=== PATIENT | male | born 1935 | race Caucasian/White ===

== ENCOUNTER 2016-07-15 15:01 | Inpatient (IN) | payer MEDICARE ==
[~2016-07-15] VITALS: Ht 190.5 cm; Wt 96.2 kg
[~2016-07-15 15:01] MED LIST: ALBU0.63 NEB; BENZ100C2 PO; ERGO500012 PO; FLUT1DIS5 IH; OXYC5TAB PO; PRED-220 PO; PRED20TA PO; SULF1TAB3 PO; TIOT18CA IH
[2016-07-15 16:31] LABS: BASO # 0.1 x10^3/uL (0.0-0.2); BASO % 1 % (0-3); EOS % 1 % (0-3); HEMATOCRIT 46.3 % (39.0-53.0); HEMOGLOBIN 14.7 g/dL (13.0-17.5); LYMPH # 0.9 x10^3/uL (1.0-4.8); LYMPH % 6 % (24-48); MEAN CORPUSCULAR HEMOGLOBIN 29 pg (25-35); MEAN CORPUSCULAR HGB CONC 32 g/dL (31-37); MEAN CORPUSCULAR VOLUME 92 fL (79-100); MONO % 6 % (0-9); NEUT % 86 % (31-73); PLATELET COUNT 193 x10^3/uL (140-400); RED BLOOD COUNT 5.01 x10^6/uL (4.30-5.70); RED CELL DISTRIBUTION WIDTH 14.4 % (11.5-14.5); WHITE BLOOD COUNT 14.4 x10^3/uL (4.0-11.0)
--- NOTE | 2016-07-15 16:38 | EKG ---
[facility] [address] [place] [address] Test Date: 2016-07-15 Test Time: 16:28:06 Pat Name: ASHVIN RAGLAND Department: Patient ID: [id number] Room: Gender: Water Attendant: [facility] ER : 1935 Requested By: SHINE RATLIFF Order Number: [id number] Reading MD: Rhonda Zaragoza Measurements Intervals [place] Rate: 109 P: 28 AK: 180 QRS: 49 QRSD: 86 T: 43 QT: 294 QTc: 397 Interpretive Statements SINUS TACHYCARDIA OTHERWISAE NORMAL ECG RI6.01 Compared to ECG 06/25/2016 18:29:49 No significant changes Electronically Signed On 07-17-2016 0:23:43 PAYMENT ANALYST by Rhonda Zaragoza
[2016-07-15] MEDS ORDERED: IV NORMAL SALINE 1000ML BAG 1,000 ML IV ONE (16:45)
[2016-07-15 16:48] LABS: CALCIUM 9.1 mg/dL (8.5-10.1); CREATININE 1.2 mg/dL (0.7-1.3); GFR 58.3; POTASSIUM 4.1 mmol/L (3.5-5.1)
[2016-07-15 16:51] LABS: ALBUMIN 3.2 g/dL (3.4-5.0); ALBUMIN/GLOBULIN RATIO 0.9 (1.0-1.7); TOTAL BILIRUBIN 1.6 mg/dL (0.2-1.0); TOTAL PROTEIN 6.9 g/dL (6.4-8.2)
[2016-07-15] MEDS ORDERED: VANCOMYCIN 2 GM in IV NORMAL SALINE 500ML BAG 500 ML IV ONE (17:00)
[2016-07-15] MEDS ORDERED: ONDANSETRON PF 4 MG/2 ML VIAL. IV PRN (17:00)
--- NOTE | 2016-07-15 17:00 | PHYS DOC ---
Past Medical History Past Medical History: Asthma, Cancer, COPD, Other Additional Past Medical Histor: COLON CA Past Surgical History: Knee Replacement, Tonsillectomy, Other Additional Past Surgical Histo: CA COLON SURGERY, BILATERAL EYE OPERATION Alcohol Use: None Drug Use: None Adult General Chief Complaint Chief Complaint: GI PROBLEM HPI HPI 81-year-old male who presents with diarrhea for the last several days and persistent cough and shortness of breath with repeated bouts of pneumonia throughout the last month. Per daughter at bedside the patient has had at least 3 episodes of pneumonia in the last 30 days that has been refractory to antibiotic therapy. The daughter was also concerned that he may be having some blood in his stool area patient does not take any blood thinners. Patient does state he is still having significant shortness of breath with cough but with no chest pain. He denies any fever or chills. Review of Systems Review of Systems Constitutional: Denies fever or chills [] Eyes: Denies change in visual acuity, redness, or eye pain [] HENT: Denies nasal congestion or sore throat [] Respiratory: Has cough, has shortness of breath [] Cardiovascular: No additional information not addressed in HPI [] GI: Denies abdominal pain, nausea, vomiting, bloody stools or diarrhea [] : Denies dysuria or hematuria [] Musculoskeletal: Denies back pain or joint pain [] Integument: Denies rash or skin lesions [] Neurologic: Denies headache, focal weakness or sensory changes [] Endocrine: Denies polyuria or polydipsia [] Current Medications Current Medications Allergies Allergies Allergies Coded Allergies Type Severity Reaction Last Updated Verified acyclovir Allergy Intermediate RASH 04/25/16 Yes amoxicillin Allergy Intermediate RASH 04/24/16 Yes celecoxib Allergy Intermediate RASH 04/25/16 Yes clavulanic acid Allergy Intermediate RASH 04/24/16 Yes clindamycin Allergy Intermediate RASH 04/25/16 Yes doxycycline Allergy Intermediate 04/25/16 Yes Physical Exam Physical Exam Constitutional: Well developed, well nourished, no acute distress, non-toxic appearance. [] HENT: Normocephalic, atraumatic, bilateral external ears normal, oropharynx moist, no oral exudates, nose normal. [] Eyes: PERRLA, EOMI, conjunctiva normal, no discharge. [] Neck: Normal range of motion, no tenderness, supple, no stridor. [] Cardiovascular:Heart rate regular rhythm, no murmur [] Lungs & Thorax: Bilateral breath sounds clear to auscultation [] Abdomen: Bowel sounds normal, soft, no tenderness, no masses, no pulsatile masses. [] Skin: Warm, dry, no erythema, no rash. [] Back: No tenderness, no CVA tenderness. [] Extremities: No tenderness, no cyanosis, no clubbing, ROM intact, no edema. [] Neurologic: Alert and oriented X 3, normal motor function, normal sensory function, no focal deficits noted. [] Psychologic: Affect normal, judgement normal, mood normal. [] Current Patient Data Vital Signs Vital Signs Date Time Temp Pulse Resp B/P Pulse Ox O2 Delivery O2 Flow Rate FiO2 07/15/16 16:07 98.6 108 32 137/86 96 Nasal Cannula 2 98.6 Lab Values Laboratory Tests Test 07/15/16 16:12 White Blood Count 14.4x10^3/uL (4.0-11.0) H Red Blood Count 5.01x10^6/uL (4.30-5.70) Hemoglobin 14.7g/dL (13.0-17.5) Hematocrit 46.3% (39.0-53.0) Mean Corpuscular Volume 92fL (79-100) Mean Corpuscular Hemoglobin 29pg (25-35) Mean Corpuscular Hemoglobin Concent 32g/dL (31-37) Red Cell Distribution Width 14.4% (11.5-14.5) Platelet Count 193x10^3/uL (140-400) Neutrophils (%) (Auto) 86% (31-73) H Lymphocytes (%) (Auto) 6% (24-48) L Monocytes (%) (Auto) 6% (0-9) Eosinophils (%) (Auto) 1% (0-3) Basophils (%) (Auto) 1% (0-3) Neutrophils # (Auto) 12.3x10^3uL (1.8-7.7) H Lymphocytes # (Auto) 0.9x10^3/uL (1.0-4.8) L Monocytes # (Auto) 0.9x10^3/uL (0.0-1.1) Eosinophils # (Auto) 0.1x10^3/uL (0.0-0.7) Basophils # (Auto) 0.1x10^3/uL (0.0-0.2) Sodium Level 143mmol/L (136-145) Potassium Level 4.1mmol/L (3.5-5.1) Chloride Level 104mmol/L (98-107) Carbon Dioxide Level 33mmol/L (21-32) H Anion Gap 6 (6-14) Blood Urea Nitrogen 20mg/dL (8-26) Creatinine 1.2mg/dL (0.7-1.3) Estimated GFR (Cockcroft-Gault) 58.3 BUN/Creatinine Ratio 17 (6-20) Glucose Level 152mg/dL (70-99) H Lactic Acid Level 2.8mmol/L (0.4-2.0) H Calcium Level 9.1mg/dL (8.5-10.1) Total Bilirubin 1.6mg/dL (0.2-1.0) H Aspartate Amino Transferase (AST) 16U/L (15-37) Alanine Aminotransferase (ALT) 31U/L (16-63) Alkaline Phosphatase 180U/L (46-116) H Troponin I Quantitative < 0.017ng/mL (0.000-0.055) Total Protein 6.9g/dL (6.4-8.2) Albumin 3.2g/dL (3.4-5.0) L Albumin/Globulin Ratio 0.9 (1.0-1.7) L Lipase 344U/L (73-393) Laboratory Tests 07/15/16 16:12 Laboratory Tests 07/15/16 16:12 EKG EKG EKG as interpreted by wa shows sinus tachycardia with a rate of 109 bpm. There are no acute ST findings. Radiology/Procedures Radiology/Procedures Portable one view of the chest as interpreted by wa shows a left lower lobe infiltrate. Course & Med Decision Making Course & Med Decision Making Pertinent Labs and Imaging studies reviewed. (See chart for details) This 81-year-old male be admitted to the hospital for continued hospital- acquired pneumonia. He does have an elevated white count of 14.1 no other acute laboratory abnormalities are seen. Portable one view of the chest continues to demonstrate left lower lobe infiltrate. Blood cultures and lactate were obtained. Lactate was mildly elevated. In the backs were administered in the case is discussed with the hospitalist, Dr. Nicole, who agreed to admit the patient with infectious disease and pulmonology consultation. Duonebs were also administered and the patient felt improved upon admission. Dragon Disclaimer Dragon Disclaimer This electronic medical record was generated, in whole or in part, using a voice recognition dictation system. Departure Departure Impression: Primary Impression: Hospital-acquired pneumonia Additional Impression: Diarrhea Disposition: 09 ADMITTED INPATIENT Admitting Physician: Panchito Nicole Condition: STABLE Referrals: ELVIN PACE Jr, MD (PCP) Problem Qualifiers SHINE RATLIFF DO Jul 15, 2016 17:00
[2016-07-15] MEDS: IPRATRPIUM/ALBUTEROL 0.5/2.5MG 3 ML NEBU. NEB SCH ×2 (17:16→20:46)
[2016-07-15 17:21] LABS: NEG OBC FOB NEG; POS OBC FOB POS
[2016-07-15 17:34] LABS: CALCIUM 9.1 mg/dL (8.5-10.1); CREATININE 1.2 mg/dL (0.7-1.3); GFR 58.3; POTASSIUM 4.1 mmol/L (3.5-5.1)
[2016-07-15] MEDS: VANCOMYCIN PER PHARMACY MC PRN (18:00)
[2016-07-15 18:15] VITALS: BP 141/68
[2016-07-15 19:00] VITALS: BP 120/57
[2016-07-15] MEDS: IV NORMAL SALINE 1000ML BAG 1,000 ML IV SCH (19:37)
--- NOTE | 2016-07-15 19:40 | HP ---
ADMIT DATE: 07/15/2016 CHIEF COMPLAINT: Shortness of breath. HISTORY OF PRESENT ILLNESS: The patient is a pleasant middle-aged male who presents with shortness breath. He has been treated for pneumonia in the past. He has a persistent left lower lobe infiltrate. I have discussed the case with the ER physician. We are going to admit the patient and treat him and consult pulmonary medicine. PAST MEDICAL HISTORY: Including previous pneumonia, asthma, COPD, colon cancer, hip replacement, knee replacement, colon surgery, eye operations. ALLERGIES: Acyclovir, amoxicillin, Celebrex, clavulanic acid, clindamycin and doxycycline. FAMILY HISTORY: Coronary artery disease. SOCIAL HISTORY: Does not drink, smoke or take drugs. MEDICATIONS: Reviewed, please refer to the MRAD. REVIEW OF SYSTEMS: GENERAL: No history of weight change, weakness or fevers. SKIN: No bruising, hair changes or rashes. EYES: No blurred, double or loss of vision. NOSE AND THROAT: No history of nosebleeds, hoarseness or sore throat. HEART: No history of palpitations, chest pain or shortness of breath on exertion. LUNGS: Complains of shortness of breath. GASTROINTESTINAL: Complains of some intermittent bloody diarrhea. GENITOURINARY: No history of frequency, urgency, hesitancy or nocturia. NEUROLOGIC: Denies history of numbness, tingling, tremor or weakness. PSYCHIATRIC: No history of panic, anxiety or depression. ENDOCRINE: No history of heat or cold intolerance, polyuria or polydipsia. EXTREMITIES: Denies muscle weakness, joint pain, pain on walking or stiffness. PHYSICAL EXAMINATION: VITAL SIGNS: Temperature afebrile, pulse 67, respirations 18, blood pressure 142/97. GENERAL: He is alert. HEART: Normal S1, S2. LUNGS: Clear to auscultation, but diminished on the left. ABDOMEN: Soft, positive bowel sounds. EXTREMITIES: Trace edema. SKIN: No rashes. PSYCHIATRIC: Stable. VASCULAR: Good capillary refill. ENDOCRINE: No thyromegaly. LYMPHATICS: No cervical nodes. HEMATOPOIETIC: No bruising. LABORATORY DATA: White count 14, hemoglobin 14, platelets 193. Electrolytes: Sodium 143, potassium 4.1, chloride 104, bicarbonate 33. BUN 20, creatinine is 1.2, glucose 152. Troponin is 0. ASSESSMENT AND PLAN: Recurrent and persistent pneumonia. The patient has been admitted. We will consult Pulmonary Medicine, consult Infectious Disease. DuoNeb, oxygen, IV antibiotics, home meds, PT/OT, frequent labs. DAVIS RIOJAS DO DR: DULCE/edi JOB#: [id number] / [id number]
[2016-07-15] MEDS: ACETAMINOPHEN 325 MG TABLET. PO PRN (22:53)
[2016-07-15 23:00] VITALS: BP 105/63
[2016-07-16 03:00] VITALS: BP 103/55
[2016-07-16 04:14] LABS: BASO # 0.1 x10^3/uL (0.0-0.2); BASO % 1 % (0-3); EOS % 1 % (0-3); HEMATOCRIT 34.9 % (39.0-53.0); HEMOGLOBIN 11.2 g/dL (13.0-17.5); LYMPH # 0.8 x10^3/uL (1.0-4.8); LYMPH % 8 % (24-48); MEAN CORPUSCULAR HEMOGLOBIN 30 pg (25-35); MEAN CORPUSCULAR HGB CONC 32 g/dL (31-37); MEAN CORPUSCULAR VOLUME 92 fL (79-100); MONO % 8 % (0-9); NEUT % 81 % (31-73); PLATELET COUNT 144 x10^3/uL (140-400); RED CELL DISTRIBUTION WIDTH 14.3 % (11.5-14.5); WHITE BLOOD COUNT 9.5 x10^3/uL (4.0-11.0)
[2016-07-16 04:30] LABS: CALCIUM 8.1 mg/dL (8.5-10.1); CREATININE 1.1 mg/dL (0.7-1.3); GFR 64.4; POTASSIUM 3.9 mmol/L (3.5-5.1)
[2016-07-16] MEDS: IV NORMAL SALINE 1000ML BAG 1,000 ML IV SCH ×2 (06:11→18:15)
[2016-07-16] MEDS: VANCOMYCIN 1.25 GM in IV NORMAL SALINE 250ML 250 ML IV SCH ×2 (06:11→20:21)
[2016-07-16] MEDS: IPRATRPIUM/ALBUTEROL 0.5/2.5MG 3 ML NEBU. NEB SCH ×4 (07:21→20:06)
[2016-07-16 07:40] VITALS: BP 117/62
[2016-07-16] MEDS: ACETAMINOPHEN 325 MG TABLET. PO PRN (08:08)
--- NOTE | 2016-07-16 08:39 | RAD ---
Indication GI bleeding. Protocol study. A single view of the chest was obtained and is compared to an examination 06/30/2016. Chronic background changes of emphysema and/or fibrosis are noted. The heart and pulmonary vessels are similar. Relative to the previous exam there is slight volume loss in the left lower lobe. This may reflect atelectasis. Pneumonia is not entirely excluded. The right lung appears clear. IMPRESSION: There are chronic background changes. New mild volume loss at the left lung base compatible with atelectasis or pneumonia
--- NOTE | 2016-07-16 08:42 | PDOC ---
PULMONARY PROGRESS NOTES Vitals Vital Signs Date Time Temp Pulse Resp B/P Pulse Ox O2 Delivery O2 Flow Rate FiO2 07/16/16 07:57 Nasal Cannula 2.0 07/16/16 07:40 98.3 94 19 117/62 99 98.3 General: Alert, No acute distress Lungs: Wheezing Cardiovascular: S1, S2 Abdomen: Soft, Non-tender Extremities: No Edema Labs Laboratory Tests Test 07/15/16 16:12 07/15/16 16:55 07/15/16 17:10 07/16/16 04:00 White Blood Count 14.4x10^3/uL (4.0-11.0) 9.5x10^3/uL (4.0-11.0) Red Blood Count 5.01x10^6/uL (4.30-5.70) 3.80x10^6/uL (4.30-5.70) Hemoglobin 14.7g/dL (13.0-17.5) 11.2g/dL (13.0-17.5) Hematocrit 46.3% (39.0-53.0) 34.9% (39.0-53.0) Mean Corpuscular Volume 92fL (79-100) 92fL (79-100) Mean Corpuscular Hemoglobin 29pg (25-35) 30pg (25-35) Mean Corpuscular Hemoglobin Concent 32g/dL (31-37) 32g/dL (31-37) Red Cell Distribution Width 14.4% (11.5-14.5) 14.3% (11.5-14.5) Platelet Count 193x10^3/uL (140-400) 144x10^3/uL (140-400) Neutrophils (%) (Auto) 86% (31-73) 81% (31-73) Lymphocytes (%) (Auto) 6% (24-48) 8% (24-48) Monocytes (%) (Auto) 6% (0-9) 8% (0-9) Eosinophils (%) (Auto) 1% (0-3) 1% (0-3) Basophils (%) (Auto) 1% (0-3) 1% (0-3) Neutrophils # (Auto) 12.3x10^3uL (1.8-7.7) 7.7x10^3uL (1.8-7.7) Lymphocytes # (Auto) 0.9x10^3/uL (1.0-4.8) 0.8x10^3/uL (1.0-4.8) Monocytes # (Auto) 0.9x10^3/uL (0.0-1.1) 0.8x10^3/uL (0.0-1.1) Eosinophils # (Auto) 0.1x10^3/uL (0.0-0.7) 0.1x10^3/uL (0.0-0.7) Basophils # (Auto) 0.1x10^3/uL (0.0-0.2) 0.1x10^3/uL (0.0-0.2) Sodium Level 143mmol/L (136-145) 145mmol/L (136-145) 144mmol/L (136-145) Potassium Level 4.1mmol/L (3.5-5.1) 4.1mmol/L (3.5-5.1) 3.9mmol/L (3.5-5.1) Chloride Level 104mmol/L (98-107) 104mmol/L (98-107) 109mmol/L (98-107) Carbon Dioxide Level 33mmol/L (21-32) 33mmol/L (21-32) 30mmol/L (21-32) Anion Gap 6 (6-14) 8 (6-14) 5 (6-14) Blood Urea Nitrogen 20mg/dL (8-26) 20mg/dL (8-26) 18mg/dL (8-26) Creatinine 1.2mg/dL (0.7-1.3) 1.2mg/dL (0.7-1.3) 1.1mg/dL (0.7-1.3) Estimated GFR (Cockcroft-Gault) 58.3 58.3 64.4 BUN/Creatinine Ratio 17 (6-20) Glucose Level 152mg/dL (70-99) 114mg/dL (70-99) 110mg/dL (70-99) Lactic Acid Level 2.8mmol/L (0.4-2.0) 1.0mmol/L (0.4-2.0) Calcium Level 9.1mg/dL (8.5-10.1) 9.1mg/dL (8.5-10.1) 8.1mg/dL (8.5-10.1) Total Bilirubin 1.6mg/dL (0.2-1.0) Aspartate Amino Transf (AST/SGOT) 16U/L (15-37) Alanine Aminotransferase (ALT/SGPT) 31U/L (16-63) Alkaline Phosphatase 180U/L (46-116) Troponin I Quantitative < 0.017ng/mL (0.000-0.055) Total Protein 6.9g/dL (6.4-8.2) Albumin 3.2g/dL (3.4-5.0) Albumin/Globulin Ratio 0.9 (1.0-1.7) Lipase 344U/L (73-393) Stool Occult Blood Positive (NEG) Test 07/16/16 07:45 Glucose (Fingerstick) 103mg/dL (70-99) Laboratory Tests Test 07/15/16 16:12 07/15/16 16:55 07/15/16 17:10 07/16/16 04:00 White Blood Count 14.4x10^3/uL (4.0-11.0) 9.5x10^3/uL (4.0-11.0) Red Blood Count 5.01x10^6/uL (4.30-5.70) 3.80x10^6/uL (4.30-5.70) Hemoglobin 14.7g/dL (13.0-17.5) 11.2g/dL (13.0-17.5) Hematocrit 46.3% (39.0-53.0) 34.9% (39.0-53.0) Mean Corpuscular Volume 92fL (79-100) 92fL (79-100) Mean Corpuscular Hemoglobin 29pg (25-35) 30pg (25-35) Mean Corpuscular Hemoglobin Concent 32g/dL (31-37) 32g/dL (31-37) Red Cell Distribution Width 14.4% (11.5-14.5) 14.3% (11.5-14.5) Platelet Count 193x10^3/uL (140-400) 144x10^3/uL (140-400) Neutrophils (%) (Auto) 86% (31-73) 81% (31-73) Lymphocytes (%) (Auto) 6% (24-48) 8% (24-48) Monocytes (%) (Auto) 6% (0-9) 8% (0-9) Eosinophils (%) (Auto) 1% (0-3) 1% (0-3) Basophils (%) (Auto) 1% (0-3) 1% (0-3) Neutrophils # (Auto) 12.3x10^3uL (1.8-7.7) 7.7x10^3uL (1.8-7.7) Lymphocytes # (Auto) 0.9x10^3/uL (1.0-4.8) 0.8x10^3/uL (1.0-4.8) Monocytes # (Auto) 0.9x10^3/uL (0.0-1.1) 0.8x10^3/uL (0.0-1.1) Eosinophils # (Auto) 0.1x10^3/uL (0.0-0.7) 0.1x10^3/uL (0.0-0.7) Basophils # (Auto) 0.1x10^3/uL (0.0-0.2) 0.1x10^3/uL (0.0-0.2) Sodium Level 143mmol/L (136-145) 145mmol/L (136-145) 144mmol/L (136-145) Potassium Level 4.1mmol/L (3.5-5.1) 4.1mmol/L (3.5-5.1) 3.9mmol/L (3.5-5.1) Chloride Level 104mmol/L (98-107) 104mmol/L (98-107) 109mmol/L (98-107) Carbon Dioxide Level 33mmol/L (21-32) 33mmol/L (21-32) 30mmol/L (21-32) Anion Gap 6 (6-14) 8 (6-14) 5 (6-14) Blood Urea Nitrogen 20mg/dL (8-26) 20mg/dL (8-26) 18mg/dL (8-26) Creatinine 1.2mg/dL (0.7-1.3) 1.2mg/dL (0.7-1.3) 1.1mg/dL (0.7-1.3) Estimated GFR (Cockcroft-Gault) 58.3 58.3 64.4 BUN/Creatinine Ratio 17 (6-20) Glucose Level 152mg/dL (70-99) 114mg/dL (70-99) 110mg/dL (70-99) Lactic Acid Level 2.8mmol/L (0.4-2.0) 1.0mmol/L (0.4-2.0) Calcium Level 9.1mg/dL (8.5-10.1) 9.1mg/dL (8.5-10.1) 8.1mg/dL (8.5-10.1) Total Bilirubin 1.6mg/dL (0.2-1.0) Aspartate Amino Transf (AST/SGOT) 16U/L (15-37) Alanine Aminotransferase (ALT/SGPT) 31U/L (16-63) Alkaline Phosphatase 180U/L (46-116) Troponin I Quantitative < 0.017ng/mL (0.000-0.055) Total Protein 6.9g/dL (6.4-8.2) Albumin 3.2g/dL (3.4-5.0) Albumin/Globulin Ratio 0.9 (1.0-1.7) Lipase 344U/L (73-393) Stool Occult Blood Positive (NEG) Test 07/16/16 07:45 Glucose (Fingerstick) 103mg/dL (70-99) Medications Active Scripts Medications Dose Route/Sig Days Date Category Vitamin D2 (Ergocalciferol (Vitamin D2)) 50,000 Unit Capsule 50,000 Unit PO WEEKLY 06/18/16 Rx Albuterol Sulfate Neb Soln (Albuterol Sulfate) 0.63 Mg/3 Ml Vial.neb 1 Vial NEB PRN QID PRN 06/10/16 Reported Advair 500-50 Diskus (Fluticasone/Salmeterol) 1 Each Disk.w.dev 1 Inh IH PRN PRN 06/10/16 Reported Impression . FULL NOTE DICTATED AGREE WITH CURRENT RX THANKS MAUREEN LINDER MD Jul 16, 2016 08:42
--- NOTE | 2016-07-16 10:21 | PDOC ---
Infectious Disease Note ROS ROS GEN: Denies fevers, chills, sweats HEENT: Denies blurred vision, sore throat CV: Denies chest pain RESP: Denies shortness of air, cough GI: Denies n/v/d NEURO: Denies confusion, dizziness MSK: Denies weakness, joint pain/swelling Vital Sign Vital Signs Vital Signs Date Time Temp Pulse Resp B/P Pulse Ox O2 Delivery O2 Flow Rate FiO2 07/16/16 07:57 Nasal Cannula 2.0 07/16/16 07:40 98.3 94 19 117/62 99 98.3 Physical Exam PHYSICAL EXAM GENERAL: NAD, Alert HEENT: PERRL, OC/OP NECK: Supple, no JVD, no LN LUNGS: Clear HEART: S1S2, no gallop, no murmur ABD: Soft, NT, no organomegaly, no rebound EXT: No edema, no cyanosis MENDER HAND: Alert, oriented x 3, no focal neurologic deficit SKIN: No rash IV: ok Labs Lab Laboratory Tests Test 07/15/16 16:12 07/15/16 16:55 07/15/16 17:10 07/16/16 04:00 White Blood Count 14.4x10^3/uL (4.0-11.0) 9.5x10^3/uL (4.0-11.0) Red Blood Count 5.01x10^6/uL (4.30-5.70) 3.80x10^6/uL (4.30-5.70) Hemoglobin 14.7g/dL (13.0-17.5) 11.2g/dL (13.0-17.5) Hematocrit 46.3% (39.0-53.0) 34.9% (39.0-53.0) Mean Corpuscular Volume 92fL (79-100) 92fL (79-100) Mean Corpuscular Hemoglobin 29pg (25-35) 30pg (25-35) Mean Corpuscular Hemoglobin Concent 32g/dL (31-37) 32g/dL (31-37) Red Cell Distribution Width 14.4% (11.5-14.5) 14.3% (11.5-14.5) Platelet Count 193x10^3/uL (140-400) 144x10^3/uL (140-400) Neutrophils (%) (Auto) 86% (31-73) 81% (31-73) Lymphocytes (%) (Auto) 6% (24-48) 8% (24-48) Monocytes (%) (Auto) 6% (0-9) 8% (0-9) Eosinophils (%) (Auto) 1% (0-3) 1% (0-3) Basophils (%) (Auto) 1% (0-3) 1% (0-3) Neutrophils # (Auto) 12.3x10^3uL (1.8-7.7) 7.7x10^3uL (1.8-7.7) Lymphocytes # (Auto) 0.9x10^3/uL (1.0-4.8) 0.8x10^3/uL (1.0-4.8) Monocytes # (Auto) 0.9x10^3/uL (0.0-1.1) 0.8x10^3/uL (0.0-1.1) Eosinophils # (Auto) 0.1x10^3/uL (0.0-0.7) 0.1x10^3/uL (0.0-0.7) Basophils # (Auto) 0.1x10^3/uL (0.0-0.2) 0.1x10^3/uL (0.0-0.2) Sodium Level 143mmol/L (136-145) 145mmol/L (136-145) 144mmol/L (136-145) Potassium Level 4.1mmol/L (3.5-5.1) 4.1mmol/L (3.5-5.1) 3.9mmol/L (3.5-5.1) Chloride Level 104mmol/L (98-107) 104mmol/L (98-107) 109mmol/L (98-107) Carbon Dioxide Level 33mmol/L (21-32) 33mmol/L (21-32) 30mmol/L (21-32) Anion Gap 6 (6-14) 8 (6-14) 5 (6-14) Blood Urea Nitrogen 20mg/dL (8-26) 20mg/dL (8-26) 18mg/dL (8-26) Creatinine 1.2mg/dL (0.7-1.3) 1.2mg/dL (0.7-1.3) 1.1mg/dL (0.7-1.3) Estimated GFR (Cockcroft-Gault) 58.3 58.3 64.4 BUN/Creatinine Ratio 17 (6-20) Glucose Level 152mg/dL (70-99) 114mg/dL (70-99) 110mg/dL (70-99) Lactic Acid Level 2.8mmol/L (0.4-2.0) 1.0mmol/L (0.4-2.0) Calcium Level 9.1mg/dL (8.5-10.1) 9.1mg/dL (8.5-10.1) 8.1mg/dL (8.5-10.1) Total Bilirubin 1.6mg/dL (0.2-1.0) Aspartate Amino Transf (AST/SGOT) 16U/L (15-37) Alanine Aminotransferase (ALT/SGPT) 31U/L (16-63) Alkaline Phosphatase 180U/L (46-116) Troponin I Quantitative < 0.017ng/mL (0.000-0.055) Total Protein 6.9g/dL (6.4-8.2) Albumin 3.2g/dL (3.4-5.0) Albumin/Globulin Ratio 0.9 (1.0-1.7) Lipase 344U/L (73-393) Stool Occult Blood Positive (NEG) Test 07/16/16 07:45 Glucose (Fingerstick) 103mg/dL (70-99) Objective Assessment Leukocytosis HCAP Loose stools ABx allergies H/o stenotrophomonas Foot wound Plan Plan of Care Contact isolation Stool for c-diff Cont Vanc Add Bactrim/Aztreonam/doxy Po Vanc F/u labs and cults # [id number] VENKATA PARKS MD Jul 16, 2016 10:21
[2016-07-16] MEDS ORDERED: NON FORMULARY ITEM (Fluticasone/Salmeterol (Advair 500-50 Diskus) 1 INH) IH PRN (10:30)
[2016-07-16] MEDS ORDERED: NON FORMULARY ITEM (Albuterol Sulfate (Albuterol Sulfate Neb Soln) 1 VIAL) NEB PRN (10:30)
[2016-07-16] MEDS ORDERED: ONDANSETRON PF 4 MG/2 ML VIAL. IV PRN (10:30)
[2016-07-16] MEDS ORDERED: ALBUTEROL SULFATE 2.5 MG/3 ML NEBU. NEB PRN (10:45)
[2016-07-16 11:22] VITALS: BP 107/64
[2016-07-16] MEDS: VANCOMYCIN 125 MG/2.5 ML ORAL SOLUTION. PO SCH ×4 (11:31→20:21)
[2016-07-16] MEDS: SMZ/TMP 800/160MG TABLET. PO SCH ×3 (11:31→20:21)
[2016-07-16] MEDS: AZITHROMYCIN 250 MG TABLET PO SCH (11:32)
[2016-07-16] MEDS: BUDESONIDE 0.5 MG/2 ML NEBU NEB SCH ×2 (11:51→20:13)
[2016-07-16] MEDS: AZTREONAM 1 GM in IV NORMAL SALINE 50ML 50 ML IV SCH ×2 (12:45→18:15)
[2016-07-16] MEDS: LACTOBACILLUS ACIDOPH & BULGAR 1 TABLET. PO SCH ×2 (12:45→18:15)
--- NOTE | 2016-07-16 12:49 | PDOC ---
PROGRESS NOTES Chief Complaint Chief Complaint COUGH sepsis with HCAP HCAP Loose stools ABx allergies H/o stenotrophomonas PNA in the past month Foot wound COPD stable diastolic CHF plan: 1. FU WITH ID, PUlm 2. on multipl abx , bactrium, doxy, po vanco, rachael, IV vanco, iv azactam 3. check cdiff, sputum cx 4. duoneb dvt ppx PTOT History of Present Illness History of Present Illness still cough, yellow sputum diarrhea 1 week, watery Vitals Vitals Vital Signs Date Time Temp Pulse Resp B/P Pulse Ox O2 Delivery O2 Flow Rate FiO2 07/16/16 11:53 Nasal Cannula 2.0 07/16/16 11:22 98.1 90 19 107/64 99 98.1 Physical Exam General: Alert, Oriented X3, Cooperative Heart: Regular rate Lungs: Crackles (left basilar crakles., rhonchis) Extremities: No clubbing, No cyanosis Labs LABS Laboratory Tests Test 07/15/16 16:12 07/15/16 16:55 07/15/16 17:10 07/16/16 04:00 White Blood Count 14.4x10^3/uL (4.0-11.0) 9.5x10^3/uL (4.0-11.0) Red Blood Count 5.01x10^6/uL (4.30-5.70) 3.80x10^6/uL (4.30-5.70) Hemoglobin 14.7g/dL (13.0-17.5) 11.2g/dL (13.0-17.5) Hematocrit 46.3% (39.0-53.0) 34.9% (39.0-53.0) Mean Corpuscular Volume 92fL (79-100) 92fL (79-100) Mean Corpuscular Hemoglobin 29pg (25-35) 30pg (25-35) Mean Corpuscular Hemoglobin Concent 32g/dL (31-37) 32g/dL (31-37) Red Cell Distribution Width 14.4% (11.5-14.5) 14.3% (11.5-14.5) Platelet Count 193x10^3/uL (140-400) 144x10^3/uL (140-400) Neutrophils (%) (Auto) 86% (31-73) 81% (31-73) Lymphocytes (%) (Auto) 6% (24-48) 8% (24-48) Monocytes (%) (Auto) 6% (0-9) 8% (0-9) Eosinophils (%) (Auto) 1% (0-3) 1% (0-3) Basophils (%) (Auto) 1% (0-3) 1% (0-3) Neutrophils # (Auto) 12.3x10^3uL (1.8-7.7) 7.7x10^3uL (1.8-7.7) Lymphocytes # (Auto) 0.9x10^3/uL (1.0-4.8) 0.8x10^3/uL (1.0-4.8) Monocytes # (Auto) 0.9x10^3/uL (0.0-1.1) 0.8x10^3/uL (0.0-1.1) Eosinophils # (Auto) 0.1x10^3/uL (0.0-0.7) 0.1x10^3/uL (0.0-0.7) Basophils # (Auto) 0.1x10^3/uL (0.0-0.2) 0.1x10^3/uL (0.0-0.2) Sodium Level 143mmol/L (136-145) 145mmol/L (136-145) 144mmol/L (136-145) Potassium Level 4.1mmol/L (3.5-5.1) 4.1mmol/L (3.5-5.1) 3.9mmol/L (3.5-5.1) Chloride Level 104mmol/L (98-107) 104mmol/L (98-107) 109mmol/L (98-107) Carbon Dioxide Level 33mmol/L (21-32) 33mmol/L (21-32) 30mmol/L (21-32) Anion Gap 6 (6-14) 8 (6-14) 5 (6-14) Blood Urea Nitrogen 20mg/dL (8-26) 20mg/dL (8-26) 18mg/dL (8-26) Creatinine 1.2mg/dL (0.7-1.3) 1.2mg/dL (0.7-1.3) 1.1mg/dL (0.7-1.3) Estimated GFR (Cockcroft-Gault) 58.3 58.3 64.4 BUN/Creatinine Ratio 17 (6-20) Glucose Level 152mg/dL (70-99) 114mg/dL (70-99) 110mg/dL (70-99) Lactic Acid Level 2.8mmol/L (0.4-2.0) 1.0mmol/L (0.4-2.0) Calcium Level 9.1mg/dL (8.5-10.1) 9.1mg/dL (8.5-10.1) 8.1mg/dL (8.5-10.1) Total Bilirubin 1.6mg/dL (0.2-1.0) Aspartate Amino Transf (AST/SGOT) 16U/L (15-37) Alanine Aminotransferase (ALT/SGPT) 31U/L (16-63) Alkaline Phosphatase 180U/L (46-116) Troponin I Quantitative < 0.017ng/mL (0.000-0.055) Total Protein 6.9g/dL (6.4-8.2) Albumin 3.2g/dL (3.4-5.0) Albumin/Globulin Ratio 0.9 (1.0-1.7) Lipase 344U/L (73-393) Stool Occult Blood Positive (NEG) Test 07/16/16 07:45 Glucose (Fingerstick) 103mg/dL (70-99) Assessment and Plan Assessmemt and Plan Problems Medical Problems: (1) Diarrhea Status: Acute (2) Hospital-acquired pneumonia Status: Acute Problems: Comment Review of Relevant I have reviewed the following items urban (where applicable) has been applied. Labs Laboratory Tests Test 07/15/16 16:12 07/15/16 16:55 07/15/16 17:10 07/16/16 04:00 White Blood Count 14.4x10^3/uL (4.0-11.0) 9.5x10^3/uL (4.0-11.0) Red Blood Count 5.01x10^6/uL (4.30-5.70) 3.80x10^6/uL (4.30-5.70) Hemoglobin 14.7g/dL (13.0-17.5) 11.2g/dL (13.0-17.5) Hematocrit 46.3% (39.0-53.0) 34.9% (39.0-53.0) Mean Corpuscular Volume 92fL (79-100) 92fL (79-100) Mean Corpuscular Hemoglobin 29pg (25-35) 30pg (25-35) Mean Corpuscular Hemoglobin Concent 32g/dL (31-37) 32g/dL (31-37) Red Cell Distribution Width 14.4% (11.5-14.5) 14.3% (11.5-14.5) Platelet Count 193x10^3/uL (140-400) 144x10^3/uL (140-400) Neutrophils (%) (Auto) 86% (31-73) 81% (31-73) Lymphocytes (%) (Auto) 6% (24-48) 8% (24-48) Monocytes (%) (Auto) 6% (0-9) 8% (0-9) Eosinophils (%) (Auto) 1% (0-3) 1% (0-3) Basophils (%) (Auto) 1% (0-3) 1% (0-3) Neutrophils # (Auto) 12.3x10^3uL (1.8-7.7) 7.7x10^3uL (1.8-7.7) Lymphocytes # (Auto) 0.9x10^3/uL (1.0-4.8) 0.8x10^3/uL (1.0-4.8) Monocytes # (Auto) 0.9x10^3/uL (0.0-1.1) 0.8x10^3/uL (0.0-1.1) Eosinophils # (Auto) 0.1x10^3/uL (0.0-0.7) 0.1x10^3/uL (0.0-0.7) Basophils # (Auto) 0.1x10^3/uL (0.0-0.2) 0.1x10^3/uL (0.0-0.2) Sodium Level 143mmol/L (136-145) 145mmol/L (136-145) 144mmol/L (136-145) Potassium Level 4.1mmol/L (3.5-5.1) 4.1mmol/L (3.5-5.1) 3.9mmol/L (3.5-5.1) Chloride Level 104mmol/L (98-107) 104mmol/L (98-107) 109mmol/L (98-107) Carbon Dioxide Level 33mmol/L (21-32) 33mmol/L (21-32) 30mmol/L (21-32) Anion Gap 6 (6-14) 8 (6-14) 5 (6-14) Blood Urea Nitrogen 20mg/dL (8-26) 20mg/dL (8-26) 18mg/dL (8-26) Creatinine 1.2mg/dL (0.7-1.3) 1.2mg/dL (0.7-1.3) 1.1mg/dL (0.7-1.3) Estimated GFR (Cockcroft-Gault) 58.3 58.3 64.4 BUN/Creatinine Ratio 17 (6-20) Glucose Level 152mg/dL (70-99) 114mg/dL (70-99) 110mg/dL (70-99) Lactic Acid Level 2.8mmol/L (0.4-2.0) 1.0mmol/L (0.4-2.0) Calcium Level 9.1mg/dL (8.5-10.1) 9.1mg/dL (8.5-10.1) 8.1mg/dL (8.5-10.1) Total Bilirubin 1.6mg/dL (0.2-1.0) Aspartate Amino Transf (AST/SGOT) 16U/L (15-37) Alanine Aminotransferase (ALT/SGPT) 31U/L (16-63) Alkaline Phosphatase 180U/L (46-116) Troponin I Quantitative < 0.017ng/mL (0.000-0.055) Total Protein 6.9g/dL (6.4-8.2) Albumin 3.2g/dL (3.4-5.0) Albumin/Globulin Ratio 0.9 (1.0-1.7) Lipase 344U/L (73-393) Stool Occult Blood Positive (NEG) Test 07/16/16 07:45 Glucose (Fingerstick) 103mg/dL (70-99) Laboratory Tests Test 07/15/16 16:12 07/15/16 16:55 07/15/16 17:10 07/16/16 04:00 White Blood Count 14.4x10^3/uL (4.0-11.0) 9.5x10^3/uL (4.0-11.0) Red Blood Count 5.01x10^6/uL (4.30-5.70) 3.80x10^6/uL (4.30-5.70) Hemoglobin 14.7g/dL (13.0-17.5) 11.2g/dL (13.0-17.5) Hematocrit 46.3% (39.0-53.0) 34.9% (39.0-53.0) Mean Corpuscular Volume 92fL (79-100) 92fL (79-100) Mean Corpuscular Hemoglobin 29pg (25-35) 30pg (25-35) Mean Corpuscular Hemoglobin Concent 32g/dL (31-37) 32g/dL (31-37) Red Cell Distribution Width 14.4% (11.5-14.5) 14.3% (11.5-14.5) Platelet Count 193x10^3/uL (140-400) 144x10^3/uL (140-400) Neutrophils (%) (Auto) 86% (31-73) 81% (31-73) Lymphocytes (%) (Auto) 6% (24-48) 8% (24-48) Monocytes (%) (Auto) 6% (0-9) 8% (0-9) Eosinophils (%) (Auto) 1% (0-3) 1% (0-3) Basophils (%) (Auto) 1% (0-3) 1% (0-3) Neutrophils # (Auto) 12.3x10^3uL (1.8-7.7) 7.7x10^3uL (1.8-7.7) Lymphocytes # (Auto) 0.9x10^3/uL (1.0-4.8) 0.8x10^3/uL (1.0-4.8) Monocytes # (Auto) 0.9x10^3/uL (0.0-1.1) 0.8x10^3/uL (0.0-1.1) Eosinophils # (Auto) 0.1x10^3/uL (0.0-0.7) 0.1x10^3/uL (0.0-0.7) Basophils # (Auto) 0.1x10^3/uL (0.0-0.2) 0.1x10^3/uL (0.0-0.2) Sodium Level 143mmol/L (136-145) 145mmol/L (136-145) 144mmol/L (136-145) Potassium Level 4.1mmol/L (3.5-5.1) 4.1mmol/L (3.5-5.1) 3.9mmol/L (3.5-5.1) Chloride Level 104mmol/L (98-107) 104mmol/L (98-107) 109mmol/L (98-107) Carbon Dioxide Level 33mmol/L (21-32) 33mmol/L (21-32) 30mmol/L (21-32) Anion Gap 6 (6-14) 8 (6-14) 5 (6-14) Blood Urea Nitrogen 20mg/dL (8-26) 20mg/dL (8-26) 18mg/dL (8-26) Creatinine 1.2mg/dL (0.7-1.3) 1.2mg/dL (0.7-1.3) 1.1mg/dL (0.7-1.3) Estimated GFR (Cockcroft-Gault) 58.3 58.3 64.4 BUN/Creatinine Ratio 17 (6-20) Glucose Level 152mg/dL (70-99) 114mg/dL (70-99) 110mg/dL (70-99) Lactic Acid Level 2.8mmol/L (0.4-2.0) 1.0mmol/L (0.4-2.0) Calcium Level 9.1mg/dL (8.5-10.1) 9.1mg/dL (8.5-10.1) 8.1mg/dL (8.5-10.1) Total Bilirubin 1.6mg/dL (0.2-1.0) Aspartate Amino Transf (AST/SGOT) 16U/L (15-37) Alanine Aminotransferase (ALT/SGPT) 31U/L (16-63) Alkaline Phosphatase 180U/L (46-116) Troponin I Quantitative < 0.017ng/mL (0.000-0.055) Total Protein 6.9g/dL (6.4-8.2) Albumin 3.2g/dL (3.4-5.0) Albumin/Globulin Ratio 0.9 (1.0-1.7) Lipase 344U/L (73-393) Stool Occult Blood Positive (NEG) Test 07/16/16 07:45 Glucose (Fingerstick) 103mg/dL (70-99) Medications Current Medications Levofloxacin/ Dextrose 150 ml @ 100 mls/hr 1X ONCE IV Last administered on 20:17; Start 07/15/16 at 16:45; Stop 07/15/16 at 18:14; Status DC Sodium Chloride (Iv Sodium Chloride 0.9% 1000ml Bag) 1,000 ml @ 1,000 mls/hr 1X ONCE IV Last administered on 07/15/16 16:48; Start 07/15/16 at 16:45; Stop 07/15/16 at 17:44; Status DC Vancomycin HCl 1 each 1 each PRN DAILY PRN MC SEE COMMENTS Last administered on 07/15/16 18:00; Start 07/15/16 at 16:45 Vancomycin HCl/ Sodium Chloride (Iv Sodium Chloride 0.9% 500ml Bag) 500 ml @ 250 mls/hr 1X ONCE IV Last administered on 07/15/16 17:24; Start 07/15/16 at 17 :00; Stop 07/15/16 at 18:59; Status DC Ondansetron HCl 4 mg 4 mg PRN Q8HRS PRN IV NAUSEA/VOMITING; Start 07/15/16 at 17 :00; Stop 07/16/16 at 10:32; Status DC Sodium Chloride (Iv Sodium Chloride 0.9% 1000ml Bag) 1,000 ml @ 100 mls/hr Q10H IV Last administered on 07/16/16 06:11; Start 07/15/16 at 16:54; Stop at 16:53 Acetaminophen (Tylenol) 650 mg PRN Q4HRS PRN PO FEVER Last administered on 08:08; Start 07/15/16 at 17:00; Stop 07/16/16 at 10:32; Status DC Albuterol/ Ipratropium 3 ml 3 ml RTQID NEB Last administered on 07/16/16 07:21 ; Start 07/15/16 at 17:00; Stop 07/16/16 at 10:32; Status DC Vancomycin HCl/ Sodium Chloride (Iv Sodium Chloride 0.9% 250ml) 250 ml @ 167 mls/hr Q12H IV Last administered on 07/16/16 06:11; Start 07/16/16 at 06:00 Vancomycin HCl 1 each 1X ONCE MC ; Start 07/17/16 at 05:30; Stop 07/17/16 at 05: 31 Trimethoprim/ Sulfamethoxazole 1 tab 1 tab TID PO Last administered on 11:31; Start 07/16/16 at 10:30 Aztreonam/Sodium Chloride (Azactam/Iv Sodium Chloride 0.9% 50ml) 50 ml @ 100 mls/hr Q6HRS IV ; Start 07/16/16 at 12:00 Azithromycin (Zithromax) 500 mg DAILY PO Last administered on 07/16/16 11:32; Start 07/16/16 at 10:30 Vancomycin HCl 125 mg [id number] PO Last administered on 07/16/16 11:31; Start 07/16/16 at 10:30 Lactobacillus Acidophilus (Bacid, Majo-Bid) 1 tab TIDWMEALS PO ; Start 07/16/16 at 12:00 Ergocalciferol (Vitamin D2) 50,000 unit WEEKLY PO ; Start 07/22/16 at 09:00 Non-Formulary Medication 1 vial PRN QID PRN NEB SHORTNESS OF BREATH; Start 07/16 at 10:30; Stop 07/16/16 at 10:34; Status DC Non-Formulary Medication 1 inh PRN PRN IH SHORTNESS OF BREATH; Start 07/16/16 at 10:30; Stop 07/16/16 at 10:34; Status DC Albuterol/ Ipratropium (Duoneb) 3 ml RTQID NEB Last administered on 07/16/16 11 :49; Start 07/16/16 at 12:00 Acetaminophen (Tylenol) 650 mg PRN Q6HRS PRN PO MILD PAIN / TEMP; Start at 10:30 Ondansetron HCl (Zofran) 4 mg PRN Q6HRS PRN IV NAUSEA/VOMITING; Start 07/16/16 at 10:30 Budesonide (Pulmicort) 0.5 mg RTBID NEB Last administered on 07/16/16 11:51; Start 07/16/16 at 11:30 Albuterol Sulfate (Ventolin Neb Soln) 2.5 mg PRN QID PRN NEB SHORTNESS OF BREATH; Start 07/16/16 at 10:45 Active Scripts Active Vitamin D2 (Ergocalciferol (Vitamin D2)) 50,000 Unit Capsule 50,000 Unit PO WEEKLY Reported Albuterol Sulfate Neb Soln (Albuterol Sulfate) 0.63 Mg/3 Ml Vial.neb 1 Vial NEB PRN QID PRN Advair 500-50 Diskus (Fluticasone/Salmeterol) 1 Each Disk.w.dev 1 Inh IH PRN PRN Vitals/I & O Vital Sign - Last 24 Hours 07/15/16 07/15/16 07/15/16 07/15/16 16:07 17:17 18:15 19:00 Temp 98.6 98.1 98.7 98.6 98.1 98.7 Pulse 108 107 104 Resp 32 20 21 B/P 137/86 141/68 120/57 Pulse Ox 96 96 96 96 O2 Delivery Nasal Cannula Nasal Cannula Nasal Cannula Nasal Cannula O2 Flow Rate 2 2.0 2.0 2.0 07/15/16 07/15/16 07/15/16 07/16/16 19:43 20:47 23:00 03:00 Temp 98.7 97.6 98.7 97.6 Pulse 109 88 Resp 20 19 B/P 105/63 103/55 Pulse Ox 89 97 97 O2 Delivery Nasal Cannula Nasal Cannula Nasal Cannula Nasal Cannula O2 Flow Rate 2.0 1.0 2.0 2.0 07/16/16 07/16/16 07/16/16 07/16/16 07:22 07:40 07:57 11:22 Temp 98.3 98.1 98.3 98.1 Pulse 94 90 Resp 19 19 B/P 117/62 107/64 Pulse Ox 98 99 99 O2 Delivery Nasal Cannula Nasal Cannula Nasal Cannula Nasal Cannula O2 Flow Rate 2.0 2.0 2.0 2.0 07/16/16 07/16/16 11:50 11:53 O2 Delivery Nasal Cannula Nasal Cannula O2 Flow Rate 2.0 2.0 Intake and Output 07/15/16 07/15/16 07/16/16 15:00 23:00 07:00 Intake Total 900 ml Balance 900 ml LAWRENCE BARR MD Jul 16, 2016 12:49
--- NOTE | 2016-07-16 12:52 | CONS ---
DATE OF CONSULTATION: 07/16/2016 PATIENT'S ROOM: 656. REQUESTING PHYSICIAN: Dr. Nicole. REASON FOR CONSULTATION: Healthcare-associated pneumonia. 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 He had been at home. States he had been doing fairly well; however, began to have increased shortness of air, possibly around Johanna time that has steadily gotten worse. He has become more weak and had sputum production. It has become yellow in color with no hemoptysis or blood tinging. No sinus congestion. No fevers, but subjective sweats. Additionally, he has developed loose stools over the past several weeks up to 4-5 times a day. Denies any gross cramping or bloating, and no excessive odor. Denies any blood with that. Because of his worsening condition, he presented to [facility]. On July 15, he had been afebrile, but white blood cell count was elevated at 14.4. Chest x-ray has some mild infiltrate in left side. He is given a dose of levofloxacin and placed on vancomycin and admitted to the hospital. Currently, he is resting and he is fairly comfortable. 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 PAST SURGICAL HISTORY: Positive for multiple I and Ds of the foot wound. History of previous other lower extremity surgery. He has had a knee replacement, colon surgery, ____ plasty and bilateral eye surgery as well. REVIEW OF SYSTEMS: Otherwise negative except for as mentioned above. He does see Dr. Nguyen routinely to debride callus of his right foot. ALLERGIES: LIST SAYS ACYCLOVIR, AMOXICILLIN WITH AUGMENTIN, CLINDAMYCIN AND DOXYCYCLINE. He states he believes he turns different colors, red or yellow depending on which one he gets. REVIEW OF SYSTEMS: Otherwise, negative. FAMILY HISTORY: Noncontributory. CURRENT MEDICATIONS: He did receive a dose of levofloxacin, also is placed on IV vancomycin. Other meds are available and reviewed in the chart. PHYSICAL EXAMINATION: VITAL SIGNS: He has been afebrile. Most recent temperature 98.3, pulse 84, respirations 19, satting 99% on 2 liters, blood pressure 117/62. CONSTITUTIONAL: He is very pleasant. He is cooperative. He is in no acute distress. He is lying in bed. HEENT: Pupils are status post cataract surgery. Normal conjunctivae. Oral cavity, oropharynx is clear. NECK: Supple, no JVD. LUNGS: Have some mild wheeze bilaterally. HEART: S1 and S2. ABDOMEN: Soft, nontender and nondistended with minimal distention, no guarding or rebound. EXTREMITIES: Without clubbing, cyanosis or gross edema. He has a callused area on the plantar aspect of the mid right forefoot. There is no expressible wound. There are no signs of infection and he has a callused area. SKIN:0 Warm to touch without signs of rash. NEUROLOGIC: He is nonfocal, moves all extremities. PSYCHIATRIC: Affect is appropriate. LABORATORY DATA: White count 14.2 on arrival, currently is 9.5, hemoglobin 11.2, platelets of 144 with 81% neutrophils, glucose 103, creatinine of 1.1. BNP was not checked. Occult positive. Chest x-ray again with some questionable left infiltrate. IMPRESSION: 1. Leukocytosis. 2. Healthcare-associated pneumonia, left side. 3. Loose stools. 4. Antibiotic allergies. 5. History of Stenotrophomonas foot wound that has already infected. RECOMMENDATIONS: He needs contact isolation with his recent history of Stenotrophomonas. We will check stool for C. diff. We will continue vancomycin. We will add Bactrim, aztreonam, doxycycline for atypical coverage, p.o. vancomycin for potential C. diff colitis. Follow up on labs and cultures. Thank you for allowing us to participate in the patient's care. Should you have further questions, please do not hesitate to contact me. VENKATA PARKS MD DR: BENNETT/edi JOB#: [id number] / [id number]
[2016-07-16] MEDS: VANCOMYCIN PER PHARMACY MC PRN (14:18)
[2016-07-16 14:55] VITALS: BP 130/65
[2016-07-16] MEDS: ENOXAPARIN 40 MG/0.4 ML DISP.SYRIN. SQ SCH (15:16)
[2016-07-16 19:00] VITALS: BP 104/69
[2016-07-16 22:43] VITALS: BP 136/72
--- NOTE | 2016-07-16 23:11 | CONS ---
DATE OF CONSULTATION: 07/16/2016 ATTENDING PHYSICIAN: Dr. Panchito Nicole. REASON FOR CONSULTATION: The patient seen in pulmonary consultation at the request of Dr. Nicole for abnormal x-ray. HISTORY OF PRESENT ILLNESS: The patient is an 81-year-old well known to our service from previous hospitalization. He was admitted back on 06/16/2016 with pneumonia. He underwent bronchoscopy growing out Stenotrophomonas maltophilia, sensitive to ceftazidime, and Bactrim. The patient now presents with increasing shortness of breath, cough productive of discolored sputum. No fever, but subjective sweats, no chills. He also had some loose stools. He had a chest x-ray which revealed a left lower lobe infiltrate. I was asked to see him in consultation. The patient has been seen by the Infectious Disease Service and started on Bactrim, aztreonam, doxycycline and vancomycin. The vancomycin was for potential C. diff colitis. PAST MEDICAL HISTORY: 1. COPD. 2. Previous Stenotrophomonas pneumonia. 3. Hypertension. 4. Osteoarthritis. 5. Chronic foot wound. 5. History of Enterobacter resistant infection. PAST SURGICAL HISTORY: Previous multiple incisions and drainage of the foot wound. He had knee replacement, colon surgery. REVIEW OF SYSTEMS: As indicated above, otherwise, a 10-point system was reviewed and negative. ALLERGIES: LISTED TO ACYCLOVIR, AMOXICILLIN, CELEBREX, AUGMENTIN, CLINDAMYCIN AND DOXYCYCLINE. FAMILY HISTORY: Noncontributory in this age group. SOCIAL HISTORY: Quit tobacco 38 years ago. PHYSICAL EXAMINATION: VITAL SIGNS: Stable. O2 saturation was greater than 92%, currently on 2 liters. Since admission, he has had a T-max of 98.7. HEENT: Eyes, the sclerae were nonicteric. NECK: Jugular venous distention was not elevated. No lymphadenopathy. CHEST: Full expansion. LUNGS: Increased breath sounds in the left base. CARDIOVASCULAR: Regular rate and rhythm with S1, S2, no S3. ABDOMEN: Soft, nontender, nondistended. EXTREMITIES: No clubbing, cyanosis. Minimal edema. NEUROLOGIC: The patient was awake, alert, following commands. A detailed neuro exam was not performed. LABORATORY DATA: Reviewed. White count was elevated at 14,000. Electrolytes were noted. BUN and creatinine noted. Lactic acid initially was 2.8, repeat was 1.0. Albumin was low upon admission. Chest x-ray revealed new right lower lobe infiltrate. IMPRESSION: 1. Acute respiratory failure secondary to left lower lobe pneumonia. 2. Left lower lobe pneumonia in a patient with a history of Stenotrophomonas, recently admitted to the hospital, possible gram-positive, gram-negative pneumonia. 3. Acute exacerbation of chronic obstructive pulmonary disease. 4. Mild protein malnutrition, present upon admission. PLAN: 1. Continue current IV antibiotics. 2. Follow up on cultures. 3. Oxygen supplementation. 4. DVT prophylaxis. I do appreciate the privilege in sharing in the patient's care. MAUREEN LINDER MD DR: FELI/edi JOB#: [id number] / [id number]
[2016-07-17] MEDS: ACETAMINOPHEN 325 MG TABLET. PO PRN ×3 (00:06→20:48)
[2016-07-17] MEDS: AZTREONAM 1 GM in IV NORMAL SALINE 50ML 50 ML IV SCH ×4 (00:07→17:32)
[2016-07-17 00:35] LABS: HCO3 ABG 23 mmol/L (21-28); PCO2 ABG 33 mmHg (35-46); PH ABG 7.45 (7.35-7.45); PO2 ABG 61 mmHg (65-108)
[2016-07-17 00:36] LABS: BODY TEMP ABG 98.6 DEG; CORRECTED PCO2 ABG 35 mmHg; CORRECTED PH ABG 7.44; CORRECTED PO2 ABG 65 mmHg; FIO2 ABG 32; SAT O2 ABG 93 % (92-99)
[2016-07-17 02:55] VITALS: BP 113/53
[2016-07-17] MEDS: VANCOMYCIN 1.25 GM in IV NORMAL SALINE 250ML 250 ML IV SCH ×2 (06:00→18:22)
[2016-07-17 06:03] LABS: BASO # 0.1 x10^3/uL (0.0-0.2); BASO % 1 % (0-3); EOS % 1 % (0-3); HEMATOCRIT 36.2 % (39.0-53.0); HEMOGLOBIN 11.8 g/dL (13.0-17.5); LYMPH # 0.6 x10^3/uL (1.0-4.8); LYMPH % 4 % (24-48); MEAN CORPUSCULAR HEMOGLOBIN 30 pg (25-35); MEAN CORPUSCULAR HGB CONC 33 g/dL (31-37); MEAN CORPUSCULAR VOLUME 91 fL (79-100); MONO % 5 % (0-9); NEUT % 89 % (31-73); PLATELET COUNT 176 x10^3/uL (140-400); RED CELL DISTRIBUTION WIDTH 14.2 % (11.5-14.5); WHITE BLOOD COUNT 13.5 x10^3/uL (4.0-11.0)
[2016-07-17 06:40] LABS: CALCIUM 8.3 mg/dL (8.5-10.1); CREATININE 1.3 mg/dL (0.7-1.3); GFR 53.1; POTASSIUM 3.9 mmol/L (3.5-5.1)
[2016-07-17 07:00] VITALS: BP 114/70
[2016-07-17 07:30] LABS: PLT ESTIMATE ADEQUATE (ADEQUATE)
[2016-07-17] MEDS: VANCOMYCIN PER PHARMACY MC PRN (07:40)
[2016-07-17] MEDS: BUDESONIDE 0.5 MG/2 ML NEBU NEB SCH ×2 (08:29→19:03)
[2016-07-17] MEDS: IPRATRPIUM/ALBUTEROL 0.5/2.5MG 3 ML NEBU. NEB SCH ×4 (08:29→19:03)
[2016-07-17] MEDS: SMZ/TMP 800/160MG TABLET. PO SCH ×3 (08:50→20:49)
[2016-07-17] MEDS: AZITHROMYCIN 250 MG TABLET PO SCH (08:51)
[2016-07-17] MEDS: LACTOBACILLUS ACIDOPH & BULGAR 1 TABLET. PO SCH ×3 (08:51→17:32)
[2016-07-17] MEDS: VANCOMYCIN 125 MG/2.5 ML ORAL SOLUTION. PO SCH ×4 (08:51→20:49)
--- NOTE | 2016-07-17 09:19 | PDOC ---
PULMONARY PROGRESS NOTES Subjective poor appetite fever today Vitals Vital Signs Date Time Temp Pulse Resp B/P Pulse Ox O2 Delivery O2 Flow Rate FiO2 07/17/16 08:37 99 Nasal Cannula 3.0 07/17/16 07:00 99.8 113 26 114/70 99.8 General: Alert Lungs: Crackles (left basilar crakles., rhonchis) Cardiovascular: S1, S2 Abdomen: Soft, Non-tender Neuro Exam: Alert Extremities: No Edema Skin: Warm Labs Laboratory Tests Test 07/15/16 16:12 07/15/16 16:55 07/15/16 17:10 07/16/16 04:00 White Blood Count 14.4x10^3/uL (4.0-11.0) 9.5x10^3/uL (4.0-11.0) Red Blood Count 5.01x10^6/uL (4.30-5.70) 3.80x10^6/uL (4.30-5.70) Hemoglobin 14.7g/dL (13.0-17.5) 11.2g/dL (13.0-17.5) Hematocrit 46.3% (39.0-53.0) 34.9% (39.0-53.0) Mean Corpuscular Volume 92fL (79-100) 92fL (79-100) Mean Corpuscular Hemoglobin 29pg (25-35) 30pg (25-35) Mean Corpuscular Hemoglobin Concent 32g/dL (31-37) 32g/dL (31-37) Red Cell Distribution Width 14.4% (11.5-14.5) 14.3% (11.5-14.5) Platelet Count 193x10^3/uL (140-400) 144x10^3/uL (140-400) Neutrophils (%) (Auto) 86% (31-73) 81% (31-73) Lymphocytes (%) (Auto) 6% (24-48) 8% (24-48) Monocytes (%) (Auto) 6% (0-9) 8% (0-9) Eosinophils (%) (Auto) 1% (0-3) 1% (0-3) Basophils (%) (Auto) 1% (0-3) 1% (0-3) Neutrophils # (Auto) 12.3x10^3uL (1.8-7.7) 7.7x10^3uL (1.8-7.7) Lymphocytes # (Auto) 0.9x10^3/uL (1.0-4.8) 0.8x10^3/uL (1.0-4.8) Monocytes # (Auto) 0.9x10^3/uL (0.0-1.1) 0.8x10^3/uL (0.0-1.1) Eosinophils # (Auto) 0.1x10^3/uL (0.0-0.7) 0.1x10^3/uL (0.0-0.7) Basophils # (Auto) 0.1x10^3/uL (0.0-0.2) 0.1x10^3/uL (0.0-0.2) Sodium Level 143mmol/L (136-145) 145mmol/L (136-145) 144mmol/L (136-145) Potassium Level 4.1mmol/L (3.5-5.1) 4.1mmol/L (3.5-5.1) 3.9mmol/L (3.5-5.1) Chloride Level 104mmol/L (98-107) 104mmol/L (98-107) 109mmol/L (98-107) Carbon Dioxide Level 33mmol/L (21-32) 33mmol/L (21-32) 30mmol/L (21-32) Anion Gap 6 (6-14) 8 (6-14) 5 (6-14) Blood Urea Nitrogen 20mg/dL (8-26) 20mg/dL (8-26) 18mg/dL (8-26) Creatinine 1.2mg/dL (0.7-1.3) 1.2mg/dL (0.7-1.3) 1.1mg/dL (0.7-1.3) Estimated GFR (Cockcroft-Gault) 58.3 58.3 64.4 BUN/Creatinine Ratio 17 (6-20) Glucose Level 152mg/dL (70-99) 114mg/dL (70-99) 110mg/dL (70-99) Lactic Acid Level 2.8mmol/L (0.4-2.0) 1.0mmol/L (0.4-2.0) Calcium Level 9.1mg/dL (8.5-10.1) 9.1mg/dL (8.5-10.1) 8.1mg/dL (8.5-10.1) Total Bilirubin 1.6mg/dL (0.2-1.0) Aspartate Amino Transf (AST/SGOT) 16U/L (15-37) Alanine Aminotransferase (ALT/SGPT) 31U/L (16-63) Alkaline Phosphatase 180U/L (46-116) Troponin I Quantitative < 0.017ng/mL (0.000-0.055) Total Protein 6.9g/dL (6.4-8.2) Albumin 3.2g/dL (3.4-5.0) Albumin/Globulin Ratio 0.9 (1.0-1.7) Lipase 344U/L (73-393) Stool Occult Blood Positive (NEG) Test 07/16/16 07:45 07/17/16 00:30 07/17/16 05:40 Glucose (Fingerstick) 103mg/dL (70-99) O2 Saturation 93% (92-99) Arterial Blood pH 7.45 (7.35-7.45) Arterial Blood pH (Temp corrected) 7.44 Arterial Blood pCO2 at Patient Temp 33mmHg (35-46) Arterial Blood pCO2 (Temp correct) 35mmHg Arterial Blood pO2 at Patient Temp 61mmHg (65-108) Arterial Blood pO2 (Temp corrected) 65mmHg Arterial Blood HCO3 23mmol/L (21-28) Arterial Blood Base Excess -1mmol/L (-3-3) FiO2 32 White Blood Count 13.5x10^3/uL (4.0-11.0) Red Blood Count 4.00x10^6/uL (4.30-5.70) Hemoglobin 11.8g/dL (13.0-17.5) Hematocrit 36.2% (39.0-53.0) Mean Corpuscular Volume 91fL (79-100) Mean Corpuscular Hemoglobin 30pg (25-35) Mean Corpuscular Hemoglobin Concent 33g/dL (31-37) Red Cell Distribution Width 14.2% (11.5-14.5) Platelet Count 176x10^3/uL (140-400) Neutrophils (%) (Auto) 89% (31-73) Lymphocytes (%) (Auto) 4% (24-48) Monocytes (%) (Auto) 5% (0-9) Eosinophils (%) (Auto) 1% (0-3) Basophils (%) (Auto) 1% (0-3) Neutrophils # (Auto) 12.0x10^3uL (1.8-7.7) Lymphocytes # (Auto) 0.6x10^3/uL (1.0-4.8) Monocytes # (Auto) 0.7x10^3/uL (0.0-1.1) Eosinophils # (Auto) 0.1x10^3/uL (0.0-0.7) Basophils # (Auto) 0.1x10^3/uL (0.0-0.2) Segmented Neutrophils % 92% (35-66) Band Neutrophils % 2% (0-9) Lymphocytes % 2% (24-48) Monocytes % 4% (0-10) Platelet Estimate Adequate (ADEQUATE) Sodium Level 139mmol/L (136-145) Potassium Level 3.9mmol/L (3.5-5.1) Chloride Level 103mmol/L (98-107) Carbon Dioxide Level 29mmol/L (21-32) Anion Gap 7 (6-14) Blood Urea Nitrogen 14mg/dL (8-26) Creatinine 1.3mg/dL (0.7-1.3) Estimated GFR (Cockcroft-Gault) 53.1 Glucose Level 147mg/dL (70-99) Calcium Level 8.3mg/dL (8.5-10.1) Vancomycin Level Trough 19.1mcg/mL (10.0-20.0) Vancomycin Last Dose Date 07/16/16 Vancomycin Last Dose Time 1800 Laboratory Tests Test 07/17/16 00:30 07/17/16 05:40 O2 Saturation 93% (92-99) Arterial Blood pH 7.45 (7.35-7.45) Arterial Blood pH (Temp corrected) 7.44 Arterial Blood pCO2 at Patient Temp 33mmHg (35-46) Arterial Blood pCO2 (Temp correct) 35mmHg Arterial Blood pO2 at Patient Temp 61mmHg (65-108) Arterial Blood pO2 (Temp corrected) 65mmHg Arterial Blood HCO3 23mmol/L (21-28) Arterial Blood Base Excess -1mmol/L (-3-3) FiO2 32 White Blood Count 13.5x10^3/uL (4.0-11.0) Red Blood Count 4.00x10^6/uL (4.30-5.70) Hemoglobin 11.8g/dL (13.0-17.5) Hematocrit 36.2% (39.0-53.0) Mean Corpuscular Volume 91fL (79-100) Mean Corpuscular Hemoglobin 30pg (25-35) Mean Corpuscular Hemoglobin Concent 33g/dL (31-37) Red Cell Distribution Width 14.2% (11.5-14.5) Platelet Count 176x10^3/uL (140-400) Neutrophils (%) (Auto) 89% (31-73) Lymphocytes (%) (Auto) 4% (24-48) Monocytes (%) (Auto) 5% (0-9) Eosinophils (%) (Auto) 1% (0-3) Basophils (%) (Auto) 1% (0-3) Neutrophils # (Auto) 12.0x10^3uL (1.8-7.7) Lymphocytes # (Auto) 0.6x10^3/uL (1.0-4.8) Monocytes # (Auto) 0.7x10^3/uL (0.0-1.1) Eosinophils # (Auto) 0.1x10^3/uL (0.0-0.7) Basophils # (Auto) 0.1x10^3/uL (0.0-0.2) Segmented Neutrophils % 92% (35-66) Band Neutrophils % 2% (0-9) Lymphocytes % 2% (24-48) Monocytes % 4% (0-10) Platelet Estimate Adequate (ADEQUATE) Sodium Level 139mmol/L (136-145) Potassium Level 3.9mmol/L (3.5-5.1) Chloride Level 103mmol/L (98-107) Carbon Dioxide Level 29mmol/L (21-32) Anion Gap 7 (6-14) Blood Urea Nitrogen 14mg/dL (8-26) Creatinine 1.3mg/dL (0.7-1.3) Estimated GFR (Cockcroft-Gault) 53.1 Glucose Level 147mg/dL (70-99) Calcium Level 8.3mg/dL (8.5-10.1) Vancomycin Level Trough 19.1mcg/mL (10.0-20.0) Vancomycin Last Dose Date 07/16/16 Vancomycin Last Dose Time 1800 Medications Active Scripts Medications Dose Route/Sig Days Date Category Vitamin D2 (Ergocalciferol (Vitamin D2)) 50,000 Unit Capsule 50,000 Unit PO WEEKLY 06/18/16 Rx Albuterol Sulfate Neb Soln (Albuterol Sulfate) 0.63 Mg/3 Ml Vial.neb 1 Vial NEB PRN QID PRN 06/10/16 Reported Advair 500-50 Diskus (Fluticasone/Salmeterol) 1 Each Disk.w.dev 1 Inh IH PRN PRN 06/10/16 Reported Impression . 1. Acute respiratory failure secondary to left lower lobe pneumonia. 2. Left lower lobe pneumonia in a patient with a history of Stenotrophomonas, recently admitted to the hospital, possible gram-positive, gram-negative pneumonia. 3. Acute exacerbation of chronic obstructive pulmonary disease. 4. Mild protein malnutrition, present upon admission. 5. Fever Plan . continue broad coverage antibx will check PCR d/w family at bedside cxr with new infiltrate right side MAUREEN LINDER MD Jul 17, 2016 09:19
--- NOTE | 2016-07-17 09:27 | ACF ---
Admission Forms Criteria PNEUMONIA, HOSPITAL-ACQUIRED AND ATELECTASIS Clinical Indications for Inpatient Care (Place 'X' for any and all applicable criteria): Ongoing inpatient care may be indicated for hospital-acquired atelectasis or pneumonia[N] with ANY ONE of the following(2)(5)(47)(48)(49): [ ]I. Mechanical ventilation [N] [ ]II. Temperature less than 35 degrees C (95 degrees F) or greater than 39.5 degrees C (103.1 degrees F) [ ]III. Tachypnea (eg, respiratory rate greater than 30 breaths per minute) [ X]IV. Hemodynamic instability [ ]V. Respiratory distress [ ]. Significant hypoxemia as indicated by ANY ONE of the following: [ ]a) Previously normal respiratory status with ANY ONE of the following: [ ]i) SaO2 less than 90% or PO2 less than 60 mm Hg (8.0 kPa )) on room air [ ]ii) Oxygen required to keep SaO2 greater than 90% [ ]b) Chronic baseline hypoxemia with significant deterioration (eg, O2 saturation decrease more than 5%) [ ]c) Required supplemental oxygen performable only in acute inpatient setting [ ]VII. Significant hypoventilation as indicated by ANY ONE of the following: [ ]a) Previously normal with PCO2 greater than 42 mm Hg (5.6 kPa) and pH less than 7.35 [ ]b) Documented PCO2 increase greater than 5 mm Hg (0.7 kPa) from disease baseline [ ]VIII.Severe secretion production requiring frequent suctioning Extended stay beyond goal length of stay for primary condition may be needed until ALL of the following are present(28)(29): [ ]a) Microbiologic cause of infection identified and appropriate antibiotic treatment in place, or satisfactory clinical response to empiric antibiotic therapy [ ]b) Hemodynamic stability [ ]c) No requirement for supplemental oxygen performable only in acute inpatient setting [ ]d) Chest tube absent or chest catheter management regimen established for next level of care [ ]e) Suctioning, pulmonary toilet, or other therapy performable at a lower level of care [ ]f) Fever absent, improved, or manageable at lower level of care [ ]g) Medical comorbidities manageable at a lower level of care The [facility] content created by Alena Baldwin has been revised. The portions of the content which have been revised are identified through the use of italic text or in bold, and [facility] has neither reviewed nor approved the modified material. All other unmodified content is copyright [facility] Please see references footnoted in the original [facility] edition 2016 Admission Criteria Met?: Yes LANI FRANCIS Jul 17, 2016 09:26
[2016-07-17 11:00] VITALS: BP 103/56
--- NOTE | 2016-07-17 11:05 | PDOC ---
Infectious Disease Note Subjective Subjective Feeling kind of punk today On facemask since last pm ROS ROS HEENT: Denies blurred vision, sore throat CV: Denies chest pain No dysuria GI: Denies n/v/d NEURO: Denies confusion, dizziness MSK: Denies weakness, joint pain/swelling Vital Sign Vital Signs Vital Signs Date Time Temp Pulse Resp B/P Pulse Ox O2 Delivery O2 Flow Rate FiO2 07/17/16 08:37 99 Nasal Cannula 3.0 07/17/16 07:00 99.8 113 26 114/70 99.8 Physical Exam PHYSICAL EXAM GENERAL: NAD, Alert. warm, coop HEENT: PERRL, OC/OP - clear NECK: Supple, no JVD, no LN LUNGS: Crackles in bases HEART: S1S2, no gallop, no murmur ABD: Soft, NT, no organomegaly, no rebound EXT: No edema, no cyanosis [employer]ANS[employer] MOLDER: Alert, oriented x 3, no focal neurologic deficit SKIN: No rash/warm IV: ok Labs Lab Laboratory Tests Test 07/17/16 00:30 07/17/16 05:40 O2 Saturation 93% (92-99) Arterial Blood pH 7.45 (7.35-7.45) Arterial Blood pH (Temp corrected) 7.44 Arterial Blood pCO2 at Patient Temp 33mmHg (35-46) Arterial Blood pCO2 (Temp correct) 35mmHg Arterial Blood pO2 at Patient Temp 61mmHg (65-108) Arterial Blood pO2 (Temp corrected) 65mmHg Arterial Blood HCO3 23mmol/L (21-28) Arterial Blood Base Excess -1mmol/L (-3-3) FiO2 32 White Blood Count 13.5x10^3/uL (4.0-11.0) Red Blood Count 4.00x10^6/uL (4.30-5.70) Hemoglobin 11.8g/dL (13.0-17.5) Hematocrit 36.2% (39.0-53.0) Mean Corpuscular Volume 91fL (79-100) Mean Corpuscular Hemoglobin 30pg (25-35) Mean Corpuscular Hemoglobin Concent 33g/dL (31-37) Red Cell Distribution Width 14.2% (11.5-14.5) Platelet Count 176x10^3/uL (140-400) Neutrophils (%) (Auto) 89% (31-73) Lymphocytes (%) (Auto) 4% (24-48) Monocytes (%) (Auto) 5% (0-9) Eosinophils (%) (Auto) 1% (0-3) Basophils (%) (Auto) 1% (0-3) Neutrophils # (Auto) 12.0x10^3uL (1.8-7.7) Lymphocytes # (Auto) 0.6x10^3/uL (1.0-4.8) Monocytes # (Auto) 0.7x10^3/uL (0.0-1.1) Eosinophils # (Auto) 0.1x10^3/uL (0.0-0.7) Basophils # (Auto) 0.1x10^3/uL (0.0-0.2) Segmented Neutrophils % 92% (35-66) Band Neutrophils % 2% (0-9) Lymphocytes % 2% (24-48) Monocytes % 4% (0-10) Platelet Estimate Adequate (ADEQUATE) Sodium Level 139mmol/L (136-145) Potassium Level 3.9mmol/L (3.5-5.1) Chloride Level 103mmol/L (98-107) Carbon Dioxide Level 29mmol/L (21-32) Anion Gap 7 (6-14) Blood Urea Nitrogen 14mg/dL (8-26) Creatinine 1.3mg/dL (0.7-1.3) Estimated GFR (Cockcroft-Gault) 53.1 Glucose Level 147mg/dL (70-99) Calcium Level 8.3mg/dL (8.5-10.1) Vancomycin Level Trough 19.1mcg/mL (10.0-20.0) Vancomycin Last Dose Date 07/16/16 Vancomycin Last Dose Time 1800 Objective Assessment Fever started last evening - hope not med reaction but also requiring more 02 Leukocytosis HCAP Loose stools ABx allergies H/o stenotrophomonas Foot wound - not infected Plan Plan of Care Check Influenza Begin Tamiflu until flu ruled out Repeat CXR r/o fluid Contact isolation F/u stool for c-diff Cont Vanc/Bactrim/Aztreonam/Azithro/po Vanc F/u labs and cults d/w granddaughter D/w VENKATA Robles MD Jul 17, 2016 11:05
--- NOTE | 2016-07-17 12:31 | PDOC ---
PROGRESS NOTES Chief Complaint Chief Complaint COUGH sepsis with HCAP HCAP Loose stools ABx allergies H/o stenotrophomonas PNA in the past month Foot wound COPD stable diastolic CHF plan: 1. FU WITH ID, PUlm 2. on multipl abx , bactrium, doxy, po vanco, rachael, IV vanco, iv azactam 3. check cdiff, sputum cx 4. duoneb dvt ppx PTOT check flu with ID, tamiflu for now repeat CXR History of Present Illness History of Present Illness cough, sob, fever, tachycardia overinght diarrhea 1 week, watery Vitals Vitals Vital Signs Date Time Temp Pulse Resp B/P Pulse Ox O2 Delivery O2 Flow Rate FiO2 07/17/16 11:54 99 Nasal Cannula 3.0 07/17/16 11:00 99.3 113 22 103/56 99.3 Physical Exam General: Alert, Oriented X3, Cooperative Heart: Regular rate Lungs: Crackles (left basilar crakles., rhonchis) Extremities: No clubbing, No cyanosis Labs LABS Laboratory Tests Test 07/17/16 00:30 07/17/16 05:40 O2 Saturation 93% (92-99) Arterial Blood pH 7.45 (7.35-7.45) Arterial Blood pH (Temp corrected) 7.44 Arterial Blood pCO2 at Patient Temp 33mmHg (35-46) Arterial Blood pCO2 (Temp correct) 35mmHg Arterial Blood pO2 at Patient Temp 61mmHg (65-108) Arterial Blood pO2 (Temp corrected) 65mmHg Arterial Blood HCO3 23mmol/L (21-28) Arterial Blood Base Excess -1mmol/L (-3-3) FiO2 32 White Blood Count 13.5x10^3/uL (4.0-11.0) Red Blood Count 4.00x10^6/uL (4.30-5.70) Hemoglobin 11.8g/dL (13.0-17.5) Hematocrit 36.2% (39.0-53.0) Mean Corpuscular Volume 91fL (79-100) Mean Corpuscular Hemoglobin 30pg (25-35) Mean Corpuscular Hemoglobin Concent 33g/dL (31-37) Red Cell Distribution Width 14.2% (11.5-14.5) Platelet Count 176x10^3/uL (140-400) Neutrophils (%) (Auto) 89% (31-73) Lymphocytes (%) (Auto) 4% (24-48) Monocytes (%) (Auto) 5% (0-9) Eosinophils (%) (Auto) 1% (0-3) Basophils (%) (Auto) 1% (0-3) Neutrophils # (Auto) 12.0x10^3uL (1.8-7.7) Lymphocytes # (Auto) 0.6x10^3/uL (1.0-4.8) Monocytes # (Auto) 0.7x10^3/uL (0.0-1.1) Eosinophils # (Auto) 0.1x10^3/uL (0.0-0.7) Basophils # (Auto) 0.1x10^3/uL (0.0-0.2) Segmented Neutrophils % 92% (35-66) Band Neutrophils % 2% (0-9) Lymphocytes % 2% (24-48) Monocytes % 4% (0-10) Platelet Estimate Adequate (ADEQUATE) Sodium Level 139mmol/L (136-145) Potassium Level 3.9mmol/L (3.5-5.1) Chloride Level 103mmol/L (98-107) Carbon Dioxide Level 29mmol/L (21-32) Anion Gap 7 (6-14) Blood Urea Nitrogen 14mg/dL (8-26) Creatinine 1.3mg/dL (0.7-1.3) Estimated GFR (Cockcroft-Gault) 53.1 Glucose Level 147mg/dL (70-99) Calcium Level 8.3mg/dL (8.5-10.1) Vancomycin Level Trough 19.1mcg/mL (10.0-20.0) Vancomycin Last Dose Date 07/16/16 Vancomycin Last Dose Time 1800 Review of Systems Review of Systems No fever, chill orchest pain Assessment and Plan Assessmemt and Plan Problems Medical Problems: (1) Diarrhea Status: Acute (2) Hospital-acquired pneumonia Status: Acute Problems: Comment Review of Relevant I have reviewed the following items urban (where applicable) has been applied. Labs Laboratory Tests Test 07/15/16 16:12 07/15/16 16:55 07/15/16 17:10 07/16/16 04:00 White Blood Count 14.4x10^3/uL (4.0-11.0) 9.5x10^3/uL (4.0-11.0) Red Blood Count 5.01x10^6/uL (4.30-5.70) 3.80x10^6/uL (4.30-5.70) Hemoglobin 14.7g/dL (13.0-17.5) 11.2g/dL (13.0-17.5) Hematocrit 46.3% (39.0-53.0) 34.9% (39.0-53.0) Mean Corpuscular Volume 92fL (79-100) 92fL (79-100) Mean Corpuscular Hemoglobin 29pg (25-35) 30pg (25-35) Mean Corpuscular Hemoglobin Concent 32g/dL (31-37) 32g/dL (31-37) Red Cell Distribution Width 14.4% (11.5-14.5) 14.3% (11.5-14.5) Platelet Count 193x10^3/uL (140-400) 144x10^3/uL (140-400) Neutrophils (%) (Auto) 86% (31-73) 81% (31-73) Lymphocytes (%) (Auto) 6% (24-48) 8% (24-48) Monocytes (%) (Auto) 6% (0-9) 8% (0-9) Eosinophils (%) (Auto) 1% (0-3) 1% (0-3) Basophils (%) (Auto) 1% (0-3) 1% (0-3) Neutrophils # (Auto) 12.3x10^3uL (1.8-7.7) 7.7x10^3uL (1.8-7.7) Lymphocytes # (Auto) 0.9x10^3/uL (1.0-4.8) 0.8x10^3/uL (1.0-4.8) Monocytes # (Auto) 0.9x10^3/uL (0.0-1.1) 0.8x10^3/uL (0.0-1.1) Eosinophils # (Auto) 0.1x10^3/uL (0.0-0.7) 0.1x10^3/uL (0.0-0.7) Basophils # (Auto) 0.1x10^3/uL (0.0-0.2) 0.1x10^3/uL (0.0-0.2) Sodium Level 143mmol/L (136-145) 145mmol/L (136-145) 144mmol/L (136-145) Potassium Level 4.1mmol/L (3.5-5.1) 4.1mmol/L (3.5-5.1) 3.9mmol/L (3.5-5.1) Chloride Level 104mmol/L (98-107) 104mmol/L (98-107) 109mmol/L (98-107) Carbon Dioxide Level 33mmol/L (21-32) 33mmol/L (21-32) 30mmol/L (21-32) Anion Gap 6 (6-14) 8 (6-14) 5 (6-14) Blood Urea Nitrogen 20mg/dL (8-26) 20mg/dL (8-26) 18mg/dL (8-26) Creatinine 1.2mg/dL (0.7-1.3) 1.2mg/dL (0.7-1.3) 1.1mg/dL (0.7-1.3) Estimated GFR (Cockcroft-Gault) 58.3 58.3 64.4 BUN/Creatinine Ratio 17 (6-20) Glucose Level 152mg/dL (70-99) 114mg/dL (70-99) 110mg/dL (70-99) Lactic Acid Level 2.8mmol/L (0.4-2.0) 1.0mmol/L (0.4-2.0) Calcium Level 9.1mg/dL (8.5-10.1) 9.1mg/dL (8.5-10.1) 8.1mg/dL (8.5-10.1) Total Bilirubin 1.6mg/dL (0.2-1.0) Aspartate Amino Transf (AST/SGOT) 16U/L (15-37) Alanine Aminotransferase (ALT/SGPT) 31U/L (16-63) Alkaline Phosphatase 180U/L (46-116) Troponin I Quantitative < 0.017ng/mL (0.000-0.055) Total Protein 6.9g/dL (6.4-8.2) Albumin 3.2g/dL (3.4-5.0) Albumin/Globulin Ratio 0.9 (1.0-1.7) Lipase 344U/L (73-393) Stool Occult Blood Positive (NEG) Test 07/16/16 07:45 07/17/16 00:30 07/17/16 05:40 Glucose (Fingerstick) 103mg/dL (70-99) O2 Saturation 93% (92-99) Arterial Blood pH 7.45 (7.35-7.45) Arterial Blood pH (Temp corrected) 7.44 Arterial Blood pCO2 at Patient Temp 33mmHg (35-46) Arterial Blood pCO2 (Temp correct) 35mmHg Arterial Blood pO2 at Patient Temp 61mmHg (65-108) Arterial Blood pO2 (Temp corrected) 65mmHg Arterial Blood HCO3 23mmol/L (21-28) Arterial Blood Base Excess -1mmol/L (-3-3) FiO2 32 White Blood Count 13.5x10^3/uL (4.0-11.0) Red Blood Count 4.00x10^6/uL (4.30-5.70) Hemoglobin 11.8g/dL (13.0-17.5) Hematocrit 36.2% (39.0-53.0) Mean Corpuscular Volume 91fL (79-100) Mean Corpuscular Hemoglobin 30pg (25-35) Mean Corpuscular Hemoglobin Concent 33g/dL (31-37) Red Cell Distribution Width 14.2% (11.5-14.5) Platelet Count 176x10^3/uL (140-400) Neutrophils (%) (Auto) 89% (31-73) Lymphocytes (%) (Auto) 4% (24-48) Monocytes (%) (Auto) 5% (0-9) Eosinophils (%) (Auto) 1% (0-3) Basophils (%) (Auto) 1% (0-3) Neutrophils # (Auto) 12.0x10^3uL (1.8-7.7) Lymphocytes # (Auto) 0.6x10^3/uL (1.0-4.8) Monocytes # (Auto) 0.7x10^3/uL (0.0-1.1) Eosinophils # (Auto) 0.1x10^3/uL (0.0-0.7) Basophils # (Auto) 0.1x10^3/uL (0.0-0.2) Segmented Neutrophils % 92% (35-66) Band Neutrophils % 2% (0-9) Lymphocytes % 2% (24-48) Monocytes % 4% (0-10) Platelet Estimate Adequate (ADEQUATE) Sodium Level 139mmol/L (136-145) Potassium Level 3.9mmol/L (3.5-5.1) Chloride Level 103mmol/L (98-107) Carbon Dioxide Level 29mmol/L (21-32) Anion Gap 7 (6-14) Blood Urea Nitrogen 14mg/dL (8-26) Creatinine 1.3mg/dL (0.7-1.3) Estimated GFR (Cockcroft-Gault) 53.1 Glucose Level 147mg/dL (70-99) Calcium Level 8.3mg/dL (8.5-10.1) Vancomycin Level Trough 19.1mcg/mL (10.0-20.0) Vancomycin Last Dose Date 07/16/16 Vancomycin Last Dose Time 1800 Laboratory Tests Test 07/17/16 00:30 07/17/16 05:40 O2 Saturation 93% (92-99) Arterial Blood pH 7.45 (7.35-7.45) Arterial Blood pH (Temp corrected) 7.44 Arterial Blood pCO2 at Patient Temp 33mmHg (35-46) Arterial Blood pCO2 (Temp correct) 35mmHg Arterial Blood pO2 at Patient Temp 61mmHg (65-108) Arterial Blood pO2 (Temp corrected) 65mmHg Arterial Blood HCO3 23mmol/L (21-28) Arterial Blood Base Excess -1mmol/L (-3-3) FiO2 32 White Blood Count 13.5x10^3/uL (4.0-11.0) Red Blood Count 4.00x10^6/uL (4.30-5.70) Hemoglobin 11.8g/dL (13.0-17.5) Hematocrit 36.2% (39.0-53.0) Mean Corpuscular Volume 91fL (79-100) Mean Corpuscular Hemoglobin 30pg (25-35) Mean Corpuscular Hemoglobin Concent 33g/dL (31-37) Red Cell Distribution Width 14.2% (11.5-14.5) Platelet Count 176x10^3/uL (140-400) Neutrophils (%) (Auto) 89% (31-73) Lymphocytes (%) (Auto) 4% (24-48) Monocytes (%) (Auto) 5% (0-9) Eosinophils (%) (Auto) 1% (0-3) Basophils (%) (Auto) 1% (0-3) Neutrophils # (Auto) 12.0x10^3uL (1.8-7.7) Lymphocytes # (Auto) 0.6x10^3/uL (1.0-4.8) Monocytes # (Auto) 0.7x10^3/uL (0.0-1.1) Eosinophils # (Auto) 0.1x10^3/uL (0.0-0.7) Basophils # (Auto) 0.1x10^3/uL (0.0-0.2) Segmented Neutrophils % 92% (35-66) Band Neutrophils % 2% (0-9) Lymphocytes % 2% (24-48) Monocytes % 4% (0-10) Platelet Estimate Adequate (ADEQUATE) Sodium Level 139mmol/L (136-145) Potassium Level 3.9mmol/L (3.5-5.1) Chloride Level 103mmol/L (98-107) Carbon Dioxide Level 29mmol/L (21-32) Anion Gap 7 (6-14) Blood Urea Nitrogen 14mg/dL (8-26) Creatinine 1.3mg/dL (0.7-1.3) Estimated GFR (Cockcroft-Gault) 53.1 Glucose Level 147mg/dL (70-99) Calcium Level 8.3mg/dL (8.5-10.1) Vancomycin Level Trough 19.1mcg/mL (10.0-20.0) Vancomycin Last Dose Date 07/16/16 Vancomycin Last Dose Time 1800 Microbiology 07/15/16 Blood Culture - Preliminary, Resulted NO GROWTH AFTER 1 DAY Medications Current Medications Levofloxacin/ Dextrose 150 ml @ 100 mls/hr 1X ONCE IV Last administered on t 20:17; Start 07/15/16 at 16:45; Stop 07/15/16 at 18:14; Status DC Sodium Chloride (Iv Sodium Chloride 0.9% 1000ml Bag) 1,000 ml @ 1,000 mls/hr 1X ONCE IV Last administered on 07/15/16 16:48; Start 07/15/16 at 16:45; Stop 07/15/16 at 17:44; Status DC Vancomycin HCl 1 each 1 each PRN DAILY PRN MC SEE COMMENTS Last administered on 07/17/16 07:40; Start 07/15/16 at 16:45 Vancomycin HCl/ Sodium Chloride (Iv Sodium Chloride 0.9% 500ml Bag) 500 ml @ 250 mls/hr 1X ONCE IV Last administered on 07/15/16 17:24; Start 07/15/16 at 17 :00; Stop 07/15/16 at 18:59; Status DC Ondansetron HCl 4 mg 4 mg PRN Q8HRS PRN IV NAUSEA/VOMITING; Start 07/15/16 at 17 :00; Stop 07/16/16 at 10:32; Status DC Sodium Chloride (Iv Sodium Chloride 0.9% 1000ml Bag) 1,000 ml @ 100 mls/hr Q10H IV Last administered on 07/16/16 18:15; Start 07/15/16 at 16:54; Stop at 16:53; Status DC Acetaminophen (Tylenol) 650 mg PRN Q4HRS PRN PO FEVER Last administered on 08:08; Start 07/15/16 at 17:00; Stop 07/16/16 at 10:32; Status DC Albuterol/ Ipratropium 3 ml 3 ml RTQID NEB Last administered on 07/16/16 07:21 ; Start 07/15/16 at 17:00; Stop 07/16/16 at 10:32; Status DC Vancomycin HCl/ Sodium Chloride (Iv Sodium Chloride 0.9% 250ml) 250 ml @ 167 mls/hr Q12H IV Last administered on 07/17/16 06:00; Start 07/16/16 at 06:00 Vancomycin HCl 1 each 1X ONCE MC Last administered on 07/17/16 05:30; Start at 05:30; Stop 07/17/16 at 05:31; Status DC Trimethoprim/ Sulfamethoxazole 1 tab 1 tab TID PO Last administered on 08:50; Start 07/16/16 at 10:30 Aztreonam/Sodium Chloride (Azactam/Iv Sodium Chloride 0.9% 50ml) 50 ml @ 100 mls/hr Q6HRS IV Last administered on 07/17/16 06:28; Start 07/16/16 at 12:00 Azithromycin (Zithromax) 500 mg DAILY PO Last administered on 07/17/16 08:51; Start 07/16/16 at 10:30 Vancomycin HCl 125 mg [id number] PO Last administered on 07/17/16 08:51; Start 07/16/16 at 10:30 Lactobacillus Acidophilus (Bacid, Majo-Bid) 1 tab TIDWMEALS PO Last administered on 07/17/16 08:51; Start 07/16/16 at 12:00 Ergocalciferol (Vitamin D2) 50,000 unit WEEKLY PO ; Start 07/22/16 at 09:00 Non-Formulary Medication 1 vial PRN QID PRN NEB SHORTNESS OF BREATH; Start 07/16 at 10:30; Stop 07/16/16 at 10:34; Status DC Non-Formulary Medication 1 inh PRN PRN IH SHORTNESS OF BREATH; Start 07/16/16 at 10:30; Stop 07/16/16 at 10:34; Status DC Albuterol/ Ipratropium (Duoneb) 3 ml RTQID NEB Last administered on 07/17/16 11 :53; Start 07/16/16 at 12:00 Acetaminophen (Tylenol) 650 mg PRN Q6HRS PRN PO MILD PAIN / TEMP Last administered on 07/17/16 00:06; Start 07/16/16 at 10:30 Ondansetron HCl (Zofran) 4 mg PRN Q6HRS PRN IV NAUSEA/VOMITING; Start 07/16/16 at 10:30 Budesonide (Pulmicort) 0.5 mg RTBID NEB Last administered on 07/17/16 08:29; Start 07/16/16 at 11:30 Albuterol Sulfate (Ventolin Neb Soln) 2.5 mg PRN QID PRN NEB SHORTNESS OF BREATH Last administered on 07/17/16 00:14; Start 07/16/16 at 10:45 Enoxaparin Sodium (Lovenox 40mg Syringe) 40 mg Q24H SQ Last administered on 07/16 15:16; Start 07/16/16 at 13:00 Oseltamivir Phosphate (Tamiflu) 75 mg BID PO ; Start 07/17/16 at 11:00; Stop 07/21 at 21:01 Active Scripts Active Vitamin D2 (Ergocalciferol (Vitamin D2)) 50,000 Unit Capsule 50,000 Unit PO WEEKLY Reported Albuterol Sulfate Neb Soln (Albuterol Sulfate) 0.63 Mg/3 Ml Vial.neb 1 Vial NEB PRN QID PRN Advair 500-50 Diskus (Fluticasone/Salmeterol) 1 Each Disk.w.dev 1 Inh IH PRN PRN Vitals/I & O Vital Sign - Last 24 Hours 07/16/16 07/16/16 07/16/16 07/16/16 14:55 15:22 19:00 20:00 Temp 97.8 99.7 97.8 99.7 Pulse 100 138 Resp 19 24 B/P 130/65 104/69 Pulse Ox 97 92 O2 Delivery Nasal Cannula Nasal Cannula Nasal Cannula Nasal Cannula O2 Flow Rate 2.0 2.0 2.0 2.0 07/16/16 07/16/16 07/16/16 07/17/16 20:09 20:12 22:43 00:14 Temp 100.6 100.6 Pulse 100 Resp 22 B/P 136/72 Pulse Ox 96 96 94 94 O2 Delivery Nasal Cannula Nasal Cannula Nasal Cannula Nasal Cannula O2 Flow Rate 2.0 2.0 2.0 3.0 07/17/16 07/17/16 07/17/16 07/17/16 02:55 07:00 08:09 08:32 Temp 100.0 99.8 100.0 99.8 Pulse 129 113 Resp 26 26 B/P 113/53 114/70 Pulse Ox 95 97 99 O2 Delivery Venturi Mask Venturi Mask Venturi Mask Nasal Cannula O2 Flow Rate 9.0 9.0 9.0 3.0 07/17/16 07/17/16 07/17/16 08:37 11:00 11:54 Temp 99.3 99.3 Pulse 113 Resp 22 B/P 103/56 Pulse Ox 99 100 99 O2 Delivery Nasal Cannula Venturi Mask Nasal Cannula O2 Flow Rate 3.0 9.0 3.0 Intake and Output 07/16/16 07/16/16 07/17/16 15:00 23:00 07:00 Intake Total 500 ml 600 ml Balance 500 ml 600 ml LAWRENCE BARR MD Jul 17, 2016 12:31
[2016-07-17] MEDS: OSELTAMIVIR 75 MG CAPSULE PO SCH ×2 (12:42→20:49)
[2016-07-17] MEDS: ENOXAPARIN 40 MG/0.4 ML DISP.SYRIN. SQ SCH (12:43)
[2016-07-17 14:28] LABS: OBC FLU VALID
[2016-07-17 15:00] VITALS: BP 111/60
[2016-07-17 19:00] VITALS: BP 114/53
[2016-07-17 23:10] VITALS: BP 100/50
[2016-07-18] MEDS: AZTREONAM 1 GM in IV NORMAL SALINE 50ML 50 ML IV SCH ×4 (00:16→17:43)
[2016-07-18 03:00] VITALS: BP 120/69
[2016-07-18 05:19] LABS: BASO # 0.1 x10^3/uL (0.0-0.2); BASO % 1 % (0-3); EOS % 2 % (0-3); HEMATOCRIT 32.4 % (39.0-53.0); HEMOGLOBIN 10.4 g/dL (13.0-17.5); LYMPH # 0.6 x10^3/uL (1.0-4.8); LYMPH % 7 % (24-48); MEAN CORPUSCULAR HEMOGLOBIN 30 pg (25-35); MEAN CORPUSCULAR HGB CONC 32 g/dL (31-37); MEAN CORPUSCULAR VOLUME 93 fL (79-100); MONO % 8 % (0-9); NEUT % 83 % (31-73); PLATELET COUNT 161 x10^3/uL (140-400); RED CELL DISTRIBUTION WIDTH 14.2 % (11.5-14.5); WHITE BLOOD COUNT 9.1 x10^3/uL (4.0-11.0)
[2016-07-18 05:50] LABS: GFR 71.9; POTASSIUM 4.2 mmol/L (3.5-5.1)
[2016-07-18] MEDS: BUDESONIDE 0.5 MG/2 ML NEBU NEB SCH ×2 (05:56→19:37)
[2016-07-18] MEDS: IPRATRPIUM/ALBUTEROL 0.5/2.5MG 3 ML NEBU. NEB SCH ×4 (05:56→19:37)
[2016-07-18] MEDS: VANCOMYCIN 1.25 GM in IV NORMAL SALINE 250ML 250 ML IV SCH ×2 (06:44→18:00)
[2016-07-18 07:00] VITALS: BP 108/59
--- NOTE | 2016-07-18 07:44 | RAD ---
Portable chest, 07/17/2016: History: Shortness of breath Comparison is made to a study from 07/15/2016. The heart size and pulmonary vascularity are normal. Scattered linear opacities in both lungs are unchanged and are probably predominantly due to scarring. A component of atelectasis may be present on the left. No new pulmonary abnormality is seen. There is unchanged blunting of the left lateral costophrenic angle compatible with scarring. No definite pleural fluid is evident. Vertebroplasty change is noted in the lower thoracic spine. IMPRESSION: 1. Bilateral pleural/parenchymal scarring. 2. No significant change since 07/15/2016.
[2016-07-18] MEDS: AZITHROMYCIN 250 MG TABLET PO SCH (08:39)
[2016-07-18] MEDS: VANCOMYCIN 125 MG/2.5 ML ORAL SOLUTION. PO SCH ×4 (08:40→20:08)
[2016-07-18] MEDS: SMZ/TMP 800/160MG TABLET. PO SCH ×3 (08:40→20:09)
[2016-07-18] MEDS: LACTOBACILLUS ACIDOPH & BULGAR 1 TABLET. PO SCH ×3 (08:40→17:43)
[2016-07-18] MEDS: OSELTAMIVIR 75 MG CAPSULE PO SCH (08:40)
--- NOTE | 2016-07-18 09:26 | PDOC ---
Infectious Disease Note Subjective Subjective Some better. Ate some. Less SOA Occ loose stool ROS ROS GEN: Denies fevers, chills, sweats HEENT: Denies blurred vision, sore throat CV: Denies chest pain RESP: Less shortness of air, cough GI: Denies n/v NEURO: Denies confusion, dizziness MSK: Denies weakness, joint pain/swelling Vital Sign Vital Signs Vital Signs Date Time Temp Pulse Resp B/P Pulse Ox O2 Delivery O2 Flow Rate FiO2 07/18/16 07:00 99.7 114 24 108/59 95 Nasal Cannula 3.0 99.7 Physical Exam PHYSICAL EXAM GENERAL: NAD, Alert HEENT: PERRL, OC/OP - clear NECK: Supple, no JVD, no LN LUNGS: mild wheeze HEART: S1S2, no gallop, no murmur ABD: Soft, NT, no organomegaly, no rebound EXT: No edema, no cyanosis SENIOR ECONOMIST: Alert, oriented x 3, no focal neurologic deficit SKIN: No rash IV: ok Labs Lab Laboratory Tests Test 07/17/16 13:50 07/18/16 04:25 Influenza Type A Antigen Negative (NEGATIVE) Influenza Type B Antigen Negative (NEGATIVE) White Blood Count 9.1x10^3/uL (4.0-11.0) Red Blood Count 3.50x10^6/uL (4.30-5.70) Hemoglobin 10.4g/dL (13.0-17.5) Hematocrit 32.4% (39.0-53.0) Mean Corpuscular Volume 93fL (79-100) Mean Corpuscular Hemoglobin 30pg (25-35) Mean Corpuscular Hemoglobin Concent 32g/dL (31-37) Red Cell Distribution Width 14.2% (11.5-14.5) Platelet Count 161x10^3/uL (140-400) Neutrophils (%) (Auto) 83% (31-73) Lymphocytes (%) (Auto) 7% (24-48) Monocytes (%) (Auto) 8% (0-9) Eosinophils (%) (Auto) 2% (0-3) Basophils (%) (Auto) 1% (0-3) Neutrophils # (Auto) 7.5x10^3uL (1.8-7.7) Lymphocytes # (Auto) 0.6x10^3/uL (1.0-4.8) Monocytes # (Auto) 0.7x10^3/uL (0.0-1.1) Eosinophils # (Auto) 0.2x10^3/uL (0.0-0.7) Basophils # (Auto) 0.1x10^3/uL (0.0-0.2) Sodium Level 138mmol/L (136-145) Potassium Level 4.2mmol/L (3.5-5.1) Chloride Level 104mmol/L (98-107) Carbon Dioxide Level 23mmol/L (21-32) Anion Gap 11 (6-14) Blood Urea Nitrogen 15mg/dL (8-26) Creatinine 1.0mg/dL (0.7-1.3) Estimated GFR (Cockcroft-Gault) 71.9 Glucose Level 108mg/dL (70-99) Calcium Level 8.0mg/dL (8.5-10.1) Objective Assessment Fever better - Influenza neg. C-diff + + C-diff 1/3 Leukocytosis - better HCAP ABx allergies H/o stenotrophomonas Foot wound - not infected Plan Plan of Care D/c Tamiflu with flu ruled out Contact isolation Cont Vanc/Bactrim/Aztreonam D/c Azithro after today Cont po Vanc F/u labs and cults VENKATA PARKS MD Jul 18, 2016 09:26
[2016-07-18 11:25] VITALS: BP 114/57
[2016-07-18] MEDS: ENOXAPARIN 40 MG/0.4 ML DISP.SYRIN. SQ SCH (12:50)
[2016-07-18] MEDS: ACETAMINOPHEN 325 MG TABLET. PO PRN ×2 (12:50→22:59)
--- NOTE | 2016-07-18 12:56 | PDOC ---
PULMONARY PROGRESS NOTES Subjective better today Vitals Vital Signs Date Time Temp Pulse Resp B/P Pulse Ox O2 Delivery O2 Flow Rate FiO2 07/18/16 12:00 Nasal Cannula 2.0 07/18/16 11:25 100.2 110 20 114/57 98 100.2 General: Alert Lungs: Crackles (left basilar crakles., rhonchis) Cardiovascular: S1, S2 Abdomen: Soft, Non-tender Neuro Exam: Alert Extremities: No Edema Skin: Warm Labs Laboratory Tests Test 07/16/16 14:45 07/17/16 00:30 07/17/16 05:40 07/17/16 13:50 Clostridium difficile Toxin (PCR) Positive (Negative) O2 Saturation 93% (92-99) Arterial Blood pH 7.45 (7.35-7.45) Arterial Blood pH (Temp corrected) 7.44 Arterial Blood pCO2 at Patient Temp 33mmHg (35-46) Arterial Blood pCO2 (Temp correct) 35mmHg Arterial Blood pO2 at Patient Temp 61mmHg (65-108) Arterial Blood pO2 (Temp corrected) 65mmHg Arterial Blood HCO3 23mmol/L (21-28) Arterial Blood Base Excess -1mmol/L (-3-3) FiO2 32 White Blood Count 13.5x10^3/uL (4.0-11.0) Red Blood Count 4.00x10^6/uL (4.30-5.70) Hemoglobin 11.8g/dL (13.0-17.5) Hematocrit 36.2% (39.0-53.0) Mean Corpuscular Volume 91fL (79-100) Mean Corpuscular Hemoglobin 30pg (25-35) Mean Corpuscular Hemoglobin Concent 33g/dL (31-37) Red Cell Distribution Width 14.2% (11.5-14.5) Platelet Count 176x10^3/uL (140-400) Neutrophils (%) (Auto) 89% (31-73) Lymphocytes (%) (Auto) 4% (24-48) Monocytes (%) (Auto) 5% (0-9) Eosinophils (%) (Auto) 1% (0-3) Basophils (%) (Auto) 1% (0-3) Neutrophils # (Auto) 12.0x10^3uL (1.8-7.7) Lymphocytes # (Auto) 0.6x10^3/uL (1.0-4.8) Monocytes # (Auto) 0.7x10^3/uL (0.0-1.1) Eosinophils # (Auto) 0.1x10^3/uL (0.0-0.7) Basophils # (Auto) 0.1x10^3/uL (0.0-0.2) Segmented Neutrophils % 92% (35-66) Band Neutrophils % 2% (0-9) Lymphocytes % 2% (24-48) Monocytes % 4% (0-10) Platelet Estimate Adequate (ADEQUATE) Sodium Level 139mmol/L (136-145) Potassium Level 3.9mmol/L (3.5-5.1) Chloride Level 103mmol/L (98-107) Carbon Dioxide Level 29mmol/L (21-32) Anion Gap 7 (6-14) Blood Urea Nitrogen 14mg/dL (8-26) Creatinine 1.3mg/dL (0.7-1.3) Estimated GFR (Cockcroft-Gault) 53.1 Glucose Level 147mg/dL (70-99) Calcium Level 8.3mg/dL (8.5-10.1) Vancomycin Level Trough 19.1mcg/mL (10.0-20.0) Vancomycin Last Dose Date 07/16/16 Vancomycin Last Dose Time 1800 Influenza Type A Antigen Negative (NEGATIVE) Influenza Type B Antigen Negative (NEGATIVE) Test 07/18/16 04:25 White Blood Count 9.1x10^3/uL (4.0-11.0) Red Blood Count 3.50x10^6/uL (4.30-5.70) Hemoglobin 10.4g/dL (13.0-17.5) Hematocrit 32.4% (39.0-53.0) Mean Corpuscular Volume 93fL (79-100) Mean Corpuscular Hemoglobin 30pg (25-35) Mean Corpuscular Hemoglobin Concent 32g/dL (31-37) Red Cell Distribution Width 14.2% (11.5-14.5) Platelet Count 161x10^3/uL (140-400) Neutrophils (%) (Auto) 83% (31-73) Lymphocytes (%) (Auto) 7% (24-48) Monocytes (%) (Auto) 8% (0-9) Eosinophils (%) (Auto) 2% (0-3) Basophils (%) (Auto) 1% (0-3) Neutrophils # (Auto) 7.5x10^3uL (1.8-7.7) Lymphocytes # (Auto) 0.6x10^3/uL (1.0-4.8) Monocytes # (Auto) 0.7x10^3/uL (0.0-1.1) Eosinophils # (Auto) 0.2x10^3/uL (0.0-0.7) Basophils # (Auto) 0.1x10^3/uL (0.0-0.2) Sodium Level 138mmol/L (136-145) Potassium Level 4.2mmol/L (3.5-5.1) Chloride Level 104mmol/L (98-107) Carbon Dioxide Level 23mmol/L (21-32) Anion Gap 11 (6-14) Blood Urea Nitrogen 15mg/dL (8-26) Creatinine 1.0mg/dL (0.7-1.3) Estimated GFR (Cockcroft-Gault) 71.9 Glucose Level 108mg/dL (70-99) Calcium Level 8.0mg/dL (8.5-10.1) Laboratory Tests Test 07/17/16 13:50 07/18/16 04:25 Influenza Type A Antigen Negative (NEGATIVE) Influenza Type B Antigen Negative (NEGATIVE) White Blood Count 9.1x10^3/uL (4.0-11.0) Red Blood Count 3.50x10^6/uL (4.30-5.70) Hemoglobin 10.4g/dL (13.0-17.5) Hematocrit 32.4% (39.0-53.0) Mean Corpuscular Volume 93fL (79-100) Mean Corpuscular Hemoglobin 30pg (25-35) Mean Corpuscular Hemoglobin Concent 32g/dL (31-37) Red Cell Distribution Width 14.2% (11.5-14.5) Platelet Count 161x10^3/uL (140-400) Neutrophils (%) (Auto) 83% (31-73) Lymphocytes (%) (Auto) 7% (24-48) Monocytes (%) (Auto) 8% (0-9) Eosinophils (%) (Auto) 2% (0-3) Basophils (%) (Auto) 1% (0-3) Neutrophils # (Auto) 7.5x10^3uL (1.8-7.7) Lymphocytes # (Auto) 0.6x10^3/uL (1.0-4.8) Monocytes # (Auto) 0.7x10^3/uL (0.0-1.1) Eosinophils # (Auto) 0.2x10^3/uL (0.0-0.7) Basophils # (Auto) 0.1x10^3/uL (0.0-0.2) Sodium Level 138mmol/L (136-145) Potassium Level 4.2mmol/L (3.5-5.1) Chloride Level 104mmol/L (98-107) Carbon Dioxide Level 23mmol/L (21-32) Anion Gap 11 (6-14) Blood Urea Nitrogen 15mg/dL (8-26) Creatinine 1.0mg/dL (0.7-1.3) Estimated GFR (Cockcroft-Gault) 71.9 Glucose Level 108mg/dL (70-99) Calcium Level 8.0mg/dL (8.5-10.1) Medications Active Scripts Medications Dose Route/Sig Days Date Category Vitamin D2 (Ergocalciferol (Vitamin D2)) 50,000 Unit Capsule 50,000 Unit PO WEEKLY 06/18/16 Rx Albuterol Sulfate Neb Soln (Albuterol Sulfate) 0.63 Mg/3 Ml Vial.neb 1 Vial NEB PRN QID PRN 06/10/16 Reported Advair 500-50 Diskus (Fluticasone/Salmeterol) 1 Each Disk.w.dev 1 Inh IH PRN PRN 06/10/16 Reported Impression . 1. Acute respiratory failure secondary to left lower lobe pneumonia. 2. Left lower lobe pneumonia in a patient with a history of Stenotrophomonas, recently admitted to the hospital, possible gram-positive, gram-negative pneumonia. 3. Acute exacerbation of chronic obstructive pulmonary disease. 4. Mild protein malnutrition, present upon admission. 5. Fever improved 6. C-Diff Plan . antibx per ID [id number] nebs improving MAUREEN LINDER MD Jul 18, 2016 12:56
--- NOTE | 2016-07-18 12:56 | PDOC ---
PROGRESS NOTES Chief Complaint Chief Complaint COUGH sepsis with HCAP HCAP Loose stools ABx allergies H/o stenotrophomonas PNA in the past month Foot wound COPD stable diastolic CHF plan: 1. FU WITH ID, PUlm 2. on multipl abx , bactrium, doxy, po vanco, rachael, IV vanco, iv azactam 3. check cdiff, sputum cx 4. duoneb dvt ppx PTOT flu neg, off tamiflu gental IVF for today History of Present Illness History of Present Illness cough, sob, fever, tachycardia 07/16/ 07/17, better 07/18, still fever tho neg flu diarrhea 1 week, watery, + cdiff Vitals Vitals Vital Signs Date Time Temp Pulse Resp B/P Pulse Ox O2 Delivery O2 Flow Rate FiO2 07/18/16 12:00 Nasal Cannula 2.0 07/18/16 11:25 100.2 110 20 114/57 98 100.2 Physical Exam General: Alert, Oriented X3, Cooperative Heart: Regular rate Lungs: Crackles (left basilar crakles., rhonchis) Extremities: No clubbing, No cyanosis Labs LABS Laboratory Tests Test 07/17/16 13:50 07/18/16 04:25 Influenza Type A Antigen Negative (NEGATIVE) Influenza Type B Antigen Negative (NEGATIVE) White Blood Count 9.1x10^3/uL (4.0-11.0) Red Blood Count 3.50x10^6/uL (4.30-5.70) Hemoglobin 10.4g/dL (13.0-17.5) Hematocrit 32.4% (39.0-53.0) Mean Corpuscular Volume 93fL (79-100) Mean Corpuscular Hemoglobin 30pg (25-35) Mean Corpuscular Hemoglobin Concent 32g/dL (31-37) Red Cell Distribution Width 14.2% (11.5-14.5) Platelet Count 161x10^3/uL (140-400) Neutrophils (%) (Auto) 83% (31-73) Lymphocytes (%) (Auto) 7% (24-48) Monocytes (%) (Auto) 8% (0-9) Eosinophils (%) (Auto) 2% (0-3) Basophils (%) (Auto) 1% (0-3) Neutrophils # (Auto) 7.5x10^3uL (1.8-7.7) Lymphocytes # (Auto) 0.6x10^3/uL (1.0-4.8) Monocytes # (Auto) 0.7x10^3/uL (0.0-1.1) Eosinophils # (Auto) 0.2x10^3/uL (0.0-0.7) Basophils # (Auto) 0.1x10^3/uL (0.0-0.2) Sodium Level 138mmol/L (136-145) Potassium Level 4.2mmol/L (3.5-5.1) Chloride Level 104mmol/L (98-107) Carbon Dioxide Level 23mmol/L (21-32) Anion Gap 11 (6-14) Blood Urea Nitrogen 15mg/dL (8-26) Creatinine 1.0mg/dL (0.7-1.3) Estimated GFR (Cockcroft-Gault) 71.9 Glucose Level 108mg/dL (70-99) Calcium Level 8.0mg/dL (8.5-10.1) Review of Systems Review of Systems No fever, chills, chest pain Assessment and Plan Assessmemt and Plan Problems Medical Problems: (1) Diarrhea Status: Acute (2) Hospital-acquired pneumonia Status: Acute Problems: Comment Review of Relevant I have reviewed the following items urban (where applicable) has been applied. Labs Laboratory Tests Test 07/16/16 14:45 07/17/16 00:30 07/17/16 05:40 07/17/16 13:50 Clostridium difficile Toxin (PCR) Positive (Negative) O2 Saturation 93% (92-99) Arterial Blood pH 7.45 (7.35-7.45) Arterial Blood pH (Temp corrected) 7.44 Arterial Blood pCO2 at Patient Temp 33mmHg (35-46) Arterial Blood pCO2 (Temp correct) 35mmHg Arterial Blood pO2 at Patient Temp 61mmHg (65-108) Arterial Blood pO2 (Temp corrected) 65mmHg Arterial Blood HCO3 23mmol/L (21-28) Arterial Blood Base Excess -1mmol/L (-3-3) FiO2 32 White Blood Count 13.5x10^3/uL (4.0-11.0) Red Blood Count 4.00x10^6/uL (4.30-5.70) Hemoglobin 11.8g/dL (13.0-17.5) Hematocrit 36.2% (39.0-53.0) Mean Corpuscular Volume 91fL (79-100) Mean Corpuscular Hemoglobin 30pg (25-35) Mean Corpuscular Hemoglobin Concent 33g/dL (31-37) Red Cell Distribution Width 14.2% (11.5-14.5) Platelet Count 176x10^3/uL (140-400) Neutrophils (%) (Auto) 89% (31-73) Lymphocytes (%) (Auto) 4% (24-48) Monocytes (%) (Auto) 5% (0-9) Eosinophils (%) (Auto) 1% (0-3) Basophils (%) (Auto) 1% (0-3) Neutrophils # (Auto) 12.0x10^3uL (1.8-7.7) Lymphocytes # (Auto) 0.6x10^3/uL (1.0-4.8) Monocytes # (Auto) 0.7x10^3/uL (0.0-1.1) Eosinophils # (Auto) 0.1x10^3/uL (0.0-0.7) Basophils # (Auto) 0.1x10^3/uL (0.0-0.2) Segmented Neutrophils % 92% (35-66) Band Neutrophils % 2% (0-9) Lymphocytes % 2% (24-48) Monocytes % 4% (0-10) Platelet Estimate Adequate (ADEQUATE) Sodium Level 139mmol/L (136-145) Potassium Level 3.9mmol/L (3.5-5.1) Chloride Level 103mmol/L (98-107) Carbon Dioxide Level 29mmol/L (21-32) Anion Gap 7 (6-14) Blood Urea Nitrogen 14mg/dL (8-26) Creatinine 1.3mg/dL (0.7-1.3) Estimated GFR (Cockcroft-Gault) 53.1 Glucose Level 147mg/dL (70-99) Calcium Level 8.3mg/dL (8.5-10.1) Vancomycin Level Trough 19.1mcg/mL (10.0-20.0) Vancomycin Last Dose Date 07/16/16 Vancomycin Last Dose Time 1800 Influenza Type A Antigen Negative (NEGATIVE) Influenza Type B Antigen Negative (NEGATIVE) Test 07/18/16 04:25 White Blood Count 9.1x10^3/uL (4.0-11.0) Red Blood Count 3.50x10^6/uL (4.30-5.70) Hemoglobin 10.4g/dL (13.0-17.5) Hematocrit 32.4% (39.0-53.0) Mean Corpuscular Volume 93fL (79-100) Mean Corpuscular Hemoglobin 30pg (25-35) Mean Corpuscular Hemoglobin Concent 32g/dL (31-37) Red Cell Distribution Width 14.2% (11.5-14.5) Platelet Count 161x10^3/uL (140-400) Neutrophils (%) (Auto) 83% (31-73) Lymphocytes (%) (Auto) 7% (24-48) Monocytes (%) (Auto) 8% (0-9) Eosinophils (%) (Auto) 2% (0-3) Basophils (%) (Auto) 1% (0-3) Neutrophils # (Auto) 7.5x10^3uL (1.8-7.7) Lymphocytes # (Auto) 0.6x10^3/uL (1.0-4.8) Monocytes # (Auto) 0.7x10^3/uL (0.0-1.1) Eosinophils # (Auto) 0.2x10^3/uL (0.0-0.7) Basophils # (Auto) 0.1x10^3/uL (0.0-0.2) Sodium Level 138mmol/L (136-145) Potassium Level 4.2mmol/L (3.5-5.1) Chloride Level 104mmol/L (98-107) Carbon Dioxide Level 23mmol/L (21-32) Anion Gap 11 (6-14) Blood Urea Nitrogen 15mg/dL (8-26) Creatinine 1.0mg/dL (0.7-1.3) Estimated GFR (Cockcroft-Gault) 71.9 Glucose Level 108mg/dL (70-99) Calcium Level 8.0mg/dL (8.5-10.1) Laboratory Tests Test 07/17/16 13:50 07/18/16 04:25 Influenza Type A Antigen Negative (NEGATIVE) Influenza Type B Antigen Negative (NEGATIVE) White Blood Count 9.1x10^3/uL (4.0-11.0) Red Blood Count 3.50x10^6/uL (4.30-5.70) Hemoglobin 10.4g/dL (13.0-17.5) Hematocrit 32.4% (39.0-53.0) Mean Corpuscular Volume 93fL (79-100) Mean Corpuscular Hemoglobin 30pg (25-35) Mean Corpuscular Hemoglobin Concent 32g/dL (31-37) Red Cell Distribution Width 14.2% (11.5-14.5) Platelet Count 161x10^3/uL (140-400) Neutrophils (%) (Auto) 83% (31-73) Lymphocytes (%) (Auto) 7% (24-48) Monocytes (%) (Auto) 8% (0-9) Eosinophils (%) (Auto) 2% (0-3) Basophils (%) (Auto) 1% (0-3) Neutrophils # (Auto) 7.5x10^3uL (1.8-7.7) Lymphocytes # (Auto) 0.6x10^3/uL (1.0-4.8) Monocytes # (Auto) 0.7x10^3/uL (0.0-1.1) Eosinophils # (Auto) 0.2x10^3/uL (0.0-0.7) Basophils # (Auto) 0.1x10^3/uL (0.0-0.2) Sodium Level 138mmol/L (136-145) Potassium Level 4.2mmol/L (3.5-5.1) Chloride Level 104mmol/L (98-107) Carbon Dioxide Level 23mmol/L (21-32) Anion Gap 11 (6-14) Blood Urea Nitrogen 15mg/dL (8-26) Creatinine 1.0mg/dL (0.7-1.3) Estimated GFR (Cockcroft-Gault) 71.9 Glucose Level 108mg/dL (70-99) Calcium Level 8.0mg/dL (8.5-10.1) Microbiology 07/15/16 Blood Culture - Preliminary, Resulted NO GROWTH AFTER 2 DAYS Medications Current Medications Levofloxacin/ Dextrose 150 ml @ 100 mls/hr 1X ONCE IV Last administered on 20:17; Start 07/15/16 at 16:45; Stop 07/15/16 at 18:14; Status DC Sodium Chloride (Iv Sodium Chloride 0.9% 1000ml Bag) 1,000 ml @ 1,000 mls/hr 1X ONCE IV Last administered on 07/15/16 16:48; Start 07/15/16 at 16:45; Stop 07/15/16 at 17:44; Status DC Vancomycin HCl 1 each 1 each PRN DAILY PRN MC SEE COMMENTS Last administered on 07/17/16 07:40; Start 07/15/16 at 16:45 Vancomycin HCl/ Sodium Chloride (Iv Sodium Chloride 0.9% 500ml Bag) 500 ml @ 250 mls/hr 1X ONCE IV Last administered on 07/15/16 17:24; Start 07/15/16 at 17 :00; Stop 07/15/16 at 18:59; Status DC Ondansetron HCl 4 mg 4 mg PRN Q8HRS PRN IV NAUSEA/VOMITING; Start 07/15/16 at 17 :00; Stop 07/16/16 at 10:32; Status DC Sodium Chloride (Iv Sodium Chloride 0.9% 1000ml Bag) 1,000 ml @ 100 mls/hr Q10H IV Last administered on 07/16/16 18:15; Start 07/15/16 at 16:54; Stop at 16:53; Status DC Acetaminophen (Tylenol) 650 mg PRN Q4HRS PRN PO FEVER Last administered on 08:08; Start 07/15/16 at 17:00; Stop 07/16/16 at 10:32; Status DC Albuterol/ Ipratropium 3 ml 3 ml RTQID NEB Last administered on 07/16/16 07:21 ; Start 07/15/16 at 17:00; Stop 07/16/16 at 10:32; Status DC Vancomycin HCl/ Sodium Chloride (Iv Sodium Chloride 0.9% 250ml) 250 ml @ 167 mls/hr Q12H IV Last administered on 07/18/16 06:44; Start 07/16/16 at 06:00 Vancomycin HCl 1 each 1X ONCE MC Last administered on 07/17/16 05:30; Start at 05:30; Stop 07/17/16 at 05:31; Status DC Trimethoprim/ Sulfamethoxazole 1 tab 1 tab TID PO Last administered on 08:40; Start 07/16/16 at 10:30 Aztreonam/Sodium Chloride (Azactam/Iv Sodium Chloride 0.9% 50ml) 50 ml @ 100 mls/hr Q6HRS IV Last administered on 07/18/16 12:51; Start 07/16/16 at 12:00 Azithromycin (Zithromax) 500 mg DAILY PO Last administered on 07/18/16 08:39; Start 07/16/16 at 10:30 Vancomycin HCl 125 mg [id number] PO Last administered on 07/18/16 12:51; Start 07/16/16 at 10:30 Lactobacillus Acidophilus (Bacid, Majo-Bid) 1 tab TIDWMEALS PO Last administered on 07/18/16 12:51; Start 07/16/16 at 12:00 Ergocalciferol (Vitamin D2) 50,000 unit WEEKLY PO ; Start 07/22/16 at 09:00 Non-Formulary Medication 1 vial PRN QID PRN NEB SHORTNESS OF BREATH; Start 07/16 at 10:30; Stop 07/16/16 at 10:34; Status DC Non-Formulary Medication 1 inh PRN PRN IH SHORTNESS OF BREATH; Start 07/16/16 at 10:30; Stop 07/16/16 at 10:34; Status DC Albuterol/ Ipratropium (Duoneb) 3 ml RTQID NEB Last administered on 07/18/16 12 :00; Start 07/16/16 at 12:00 Acetaminophen (Tylenol) 650 mg PRN Q6HRS PRN PO MILD PAIN / TEMP Last administered on 07/18/16 12:50; Start 07/16/16 at 10:30 Ondansetron HCl (Zofran) 4 mg PRN Q6HRS PRN IV NAUSEA/VOMITING; Start 07/16/16 at 10:30 Budesonide (Pulmicort) 0.5 mg RTBID NEB Last administered on 07/18/16 05:56; Start 07/16/16 at 11:30 Albuterol Sulfate (Ventolin Neb Soln) 2.5 mg PRN QID PRN NEB SHORTNESS OF BREATH Last administered on 07/17/16 00:14; Start 07/16/16 at 10:45 Enoxaparin Sodium (Lovenox 40mg Syringe) 40 mg Q24H SQ Last administered on 07/18 12:50; Start 07/16/16 at 13:00 Oseltamivir Phosphate (Tamiflu) 75 mg BID PO Last administered on 07/18/16 08: 40; Start 07/17/16 at 11:00; Stop 07/18/16 at 09:27; Status DC Active Scripts Active Vitamin D2 (Ergocalciferol (Vitamin D2)) 50,000 Unit Capsule 50,000 Unit PO WEEKLY Reported Albuterol Sulfate Neb Soln (Albuterol Sulfate) 0.63 Mg/3 Ml Vial.neb 1 Vial NEB PRN QID PRN Advair 500-50 Diskus (Fluticasone/Salmeterol) 1 Each Disk.w.dev 1 Inh IH PRN PRN Vitals/I & O Vital Sign - Last 24 Hours 07/17/16 07/17/16 07/17/16 07/17/16 15:00 16:20 19:00 19:05 Temp 102.2 99.2 102.2 99.2 Pulse 112 106 Resp 32 20 B/P 111/60 114/53 Pulse Ox 99 98 99 O2 Delivery Venturi Mask Venturi Mask Venturi Mask Venturi Mask O2 Flow Rate 9.0 10.0 9.0 10.0 07/17/16 07/17/16 07/17/16 07/18/16 19:05 20:00 23:10 03:00 Temp 98.2 98.1 98.2 98.1 Pulse 98 108 Resp 22 22 B/P 100/50 120/69 Pulse Ox 99 98 98 O2 Delivery Venturi Mask Venturi Mask Venturi Mask Venturi Mask O2 Flow Rate 10.0 10.0 9.0 9.0 07/18/16 07/18/16 07/18/16 07/18/16 05:57 06:01 07:00 08:00 Temp 99.7 99.7 Pulse 114 Resp 24 B/P 108/59 Pulse Ox 99 99 95 O2 Delivery Venturi Mask Venturi Mask Nasal Cannula Nasal Cannula O2 Flow Rate 10.0 10.0 3.0 3.0 07/18/16 07/18/16 11:25 12:00 Temp 100.2 100.2 Pulse 110 Resp 20 B/P 114/57 Pulse Ox 98 O2 Delivery Nasal Cannula Nasal Cannula O2 Flow Rate 3.0 2.0 Intake and Output 07/17/16 07/17/16 07/18/16 15:00 23:00 07:00 Intake Total 600 ml 150 ml Balance 600 ml 150 ml LAWRENCE BARR MD Jul 18, 2016 12:56
[2016-07-18] MEDS ORDERED: IV NORMAL SALINE 1000ML BAG 1,000 ML IV ONE (13:00)
[2016-07-18 15:00] VITALS: BP 96/54
[2016-07-18 19:55] VITALS: BP 122/66
[2016-07-18 23:41] VITALS: BP 105/50
[2016-07-19] MEDS: AZTREONAM 1 GM in IV NORMAL SALINE 50ML 50 ML IV SCH ×4 (00:08→17:40)
[2016-07-19] MEDS: DIPHENHYDRAMINE HCL 25 MG CAPSULE PO PRN ×2 (01:11→21:08)
[2016-07-19 03:47] VITALS: BP 106/59
[2016-07-19 04:53] LABS: CALCIUM 8.3 mg/dL (8.5-10.1); CREATININE 1.2 mg/dL (0.7-1.3); GFR 58.3; POTASSIUM 3.7 mmol/L (3.5-5.1)
[2016-07-19] MEDS: VANCOMYCIN 1.25 GM in IV NORMAL SALINE 250ML 250 ML IV SCH (05:17)
[2016-07-19 07:00] VITALS: BP 124/67
[2016-07-19] MEDS: IPRATRPIUM/ALBUTEROL 0.5/2.5MG 3 ML NEBU. NEB SCH ×4 (07:04→19:38)
[2016-07-19] MEDS: BUDESONIDE 0.5 MG/2 ML NEBU NEB SCH ×2 (07:04→19:38)
[2016-07-19] MEDS: SMZ/TMP 800/160MG TABLET. PO SCH ×3 (07:56→21:07)
[2016-07-19] MEDS: LACTOBACILLUS ACIDOPH & BULGAR 1 TABLET. PO SCH ×3 (07:56→17:37)
[2016-07-19] MEDS: VANCOMYCIN 125 MG/2.5 ML ORAL SOLUTION. PO SCH ×4 (07:56→21:00)
[2016-07-19] MEDS: AZITHROMYCIN 250 MG TABLET PO SCH (07:57)
--- NOTE | 2016-07-19 08:30 | PDOC ---
Infectious Disease Note Subjective Subjective Some better yet. Less SOA Occ loose stool but forming - only 2 ROS ROS GEN: Denies fevers, chills, sweats HEENT: Denies blurred vision, sore throat CV: Denies chest pain RESP: Denies shortness of air, cough GI: Denies n/v/d NEURO: Denies confusion, dizziness MSK: Denies weakness, joint pain/swelling Vital Sign Vital Signs Vital Signs Date Time Temp Pulse Resp B/P Pulse Ox O2 Delivery O2 Flow Rate FiO2 07/19/16 08:00 Nasal Cannula 2.0 07/19/16 07:05 97 07/19/16 07:00 97.9 74 22 124/67 97.9 Physical Exam PHYSICAL EXAM GENERAL: NAD, Alert - looks better HEENT: PERRL, OC/OP - ? early thrush NECK: Supple, no JVD, no LN LUNGS: Improved. 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 C-diff + + C-diff 1/3 Leukocytosis - better HCAP - improving clinically ABx allergies H/o stenotrophomonas Foot wound - not infected Plan Plan of Care Po Nystatin Contact isolation Cont Bactrim/Aztreonam D/c Vanc D/c'd Azithro this am (had 3 doses of 500 mg) Cont po Vanc F/u labs (BMP in am) and cults/Temp VENKATA PARKS MD Jul 19, 2016 08:29
[2016-07-19] MEDS: NYSTATIN 100,000 UNITS/ML 5 ML ORAL.SUSP. SWSW SCH ×4 (11:01→21:08)
[2016-07-19 11:29] LABS: BASO # 0.1 x10^3/uL (0.0-0.2); BASO % 1 % (0-3); EOS % 2 % (0-3); HEMATOCRIT 29.8 % (39.0-53.0); HEMOGLOBIN 9.8 g/dL (13.0-17.5); LYMPH # 0.8 x10^3/uL (1.0-4.8); LYMPH % 12 % (24-48); MEAN CORPUSCULAR HEMOGLOBIN 30 pg (25-35); MEAN CORPUSCULAR HGB CONC 33 g/dL (31-37); MEAN CORPUSCULAR VOLUME 90 fL (79-100); MONO % 10 % (0-9); NEUT % 75 % (31-73); PLATELET COUNT 201 x10^3/uL (140-400); RED CELL DISTRIBUTION WIDTH 14.1 % (11.5-14.5); WHITE BLOOD COUNT 6.4 x10^3/uL (4.0-11.0)
[2016-07-19 11:52] VITALS: BP 127/80
[2016-07-19] MEDS: ENOXAPARIN 40 MG/0.4 ML DISP.SYRIN. SQ SCH (12:40)
--- NOTE | 2016-07-19 13:25 | PDOC ---
PULMONARY PROGRESS NOTES Subjective better today Vitals Vital Signs Date Time Temp Pulse Resp B/P Pulse Ox O2 Delivery O2 Flow Rate FiO2 07/19/16 11:53 Nasal Cannula 2.0 07/19/16 11:52 97.9 85 22 127/80 95 97.9 General: Alert Lungs: Crackles (left basilar crakles., rhonchis) Cardiovascular: S1, S2 Abdomen: Soft, Non-tender Neuro Exam: Alert Extremities: No Edema Skin: Warm Labs Laboratory Tests Test 07/17/16 13:50 07/18/16 04:25 07/19/16 04:20 Influenza Type A Antigen Negative (NEGATIVE) Influenza Type B Antigen Negative (NEGATIVE) White Blood Count 9.1x10^3/uL (4.0-11.0) 6.4x10^3/uL (4.0-11.0) Red Blood Count 3.50x10^6/uL (4.30-5.70) 3.30x10^6/uL (4.30-5.70) Hemoglobin 10.4g/dL (13.0-17.5) 9.8g/dL (13.0-17.5) Hematocrit 32.4% (39.0-53.0) 29.8% (39.0-53.0) Mean Corpuscular Volume 93fL (79-100) 90fL (79-100) Mean Corpuscular Hemoglobin 30pg (25-35) 30pg (25-35) Mean Corpuscular Hemoglobin Concent 32g/dL (31-37) 33g/dL (31-37) Red Cell Distribution Width 14.2% (11.5-14.5) 14.1% (11.5-14.5) Platelet Count 161x10^3/uL (140-400) 201x10^3/uL (140-400) Neutrophils (%) (Auto) 83% (31-73) 75% (31-73) Lymphocytes (%) (Auto) 7% (24-48) 12% (24-48) Monocytes (%) (Auto) 8% (0-9) 10% (0-9) Eosinophils (%) (Auto) 2% (0-3) 2% (0-3) Basophils (%) (Auto) 1% (0-3) 1% (0-3) Neutrophils # (Auto) 7.5x10^3uL (1.8-7.7) 4.8x10^3uL (1.8-7.7) Lymphocytes # (Auto) 0.6x10^3/uL (1.0-4.8) 0.8x10^3/uL (1.0-4.8) Monocytes # (Auto) 0.7x10^3/uL (0.0-1.1) 0.6x10^3/uL (0.0-1.1) Eosinophils # (Auto) 0.2x10^3/uL (0.0-0.7) 0.1x10^3/uL (0.0-0.7) Basophils # (Auto) 0.1x10^3/uL (0.0-0.2) 0.1x10^3/uL (0.0-0.2) Sodium Level 138mmol/L (136-145) 138mmol/L (136-145) Potassium Level 4.2mmol/L (3.5-5.1) 3.7mmol/L (3.5-5.1) Chloride Level 104mmol/L (98-107) 104mmol/L (98-107) Carbon Dioxide Level 23mmol/L (21-32) 29mmol/L (21-32) Anion Gap 11 (6-14) 5 (6-14) Blood Urea Nitrogen 15mg/dL (8-26) 15mg/dL (8-26) Creatinine 1.0mg/dL (0.7-1.3) 1.2mg/dL (0.7-1.3) Estimated GFR (Cockcroft-Gault) 71.9 58.3 Glucose Level 108mg/dL (70-99) 97mg/dL (70-99) Calcium Level 8.0mg/dL (8.5-10.1) 8.3mg/dL (8.5-10.1) Laboratory Tests Test 07/19/16 04:20 White Blood Count 6.4x10^3/uL (4.0-11.0) Red Blood Count 3.30x10^6/uL (4.30-5.70) Hemoglobin 9.8g/dL (13.0-17.5) Hematocrit 29.8% (39.0-53.0) Mean Corpuscular Volume 90fL (79-100) Mean Corpuscular Hemoglobin 30pg (25-35) Mean Corpuscular Hemoglobin Concent 33g/dL (31-37) Red Cell Distribution Width 14.1% (11.5-14.5) Platelet Count 201x10^3/uL (140-400) Neutrophils (%) (Auto) 75% (31-73) Lymphocytes (%) (Auto) 12% (24-48) Monocytes (%) (Auto) 10% (0-9) Eosinophils (%) (Auto) 2% (0-3) Basophils (%) (Auto) 1% (0-3) Neutrophils # (Auto) 4.8x10^3uL (1.8-7.7) Lymphocytes # (Auto) 0.8x10^3/uL (1.0-4.8) Monocytes # (Auto) 0.6x10^3/uL (0.0-1.1) Eosinophils # (Auto) 0.1x10^3/uL (0.0-0.7) Basophils # (Auto) 0.1x10^3/uL (0.0-0.2) Sodium Level 138mmol/L (136-145) Potassium Level 3.7mmol/L (3.5-5.1) Chloride Level 104mmol/L (98-107) Carbon Dioxide Level 29mmol/L (21-32) Anion Gap 5 (6-14) Blood Urea Nitrogen 15mg/dL (8-26) Creatinine 1.2mg/dL (0.7-1.3) Estimated GFR (Cockcroft-Gault) 58.3 Glucose Level 97mg/dL (70-99) Calcium Level 8.3mg/dL (8.5-10.1) Medications Active Scripts Medications Dose Route/Sig Days Date Category Vitamin D2 (Ergocalciferol (Vitamin D2)) 50,000 Unit Capsule 50,000 Unit PO WEEKLY 06/18/16 Rx Albuterol Sulfate Neb Soln (Albuterol Sulfate) 0.63 Mg/3 Ml Vial.neb 1 Vial NEB PRN QID PRN 06/10/16 Reported Advair 500-50 Diskus (Fluticasone/Salmeterol) 1 Each Disk.w.dev 1 Inh IH PRN PRN 06/10/16 Reported Impression . 1. Acute respiratory failure secondary to left lower lobe pneumonia. 2. Left lower lobe pneumonia in a patient with a history of Stenotrophomonas, recently admitted to the hospital, possible gram-positive, gram-negative pneumonia. 3. Acute exacerbation of chronic obstructive pulmonary disease. 4. Mild protein malnutrition, present upon admission. 5. Fever improved 6. C-Diff Plan . continue the same stools loose at times, for C dill antibx per ID [id number] MAUREEN Kyle MD Jul 19, 2016 13:25
--- NOTE | 2016-07-19 13:49 | PDOC ---
PROGRESS NOTES Chief Complaint Chief Complaint COUGH sepsis with HCAP HCAP Loose stools ABx allergies H/o stenotrophomonas PNA in the past month Foot wound COPD stable diastolic CHF plan: 1. FU WITH ID, PUlm 2. on multipl abx , bactrium, off doxy, po vanco, rachael, off vanco, iv azactam 3. check cdiff, sputum cx 4. duoneb dvt ppx PTOT flu neg, off tamiflu History of Present Illness History of Present Illness cough, sob, fever, tachycardia 07/16/ 07/17, better 07/18, still fever tho neg flu diarrhea 1 week, watery, + cdiff. diarrhea better with loose stool now low grade fever overnight Vitals Vitals Vital Signs Date Time Temp Pulse Resp B/P Pulse Ox O2 Delivery O2 Flow Rate FiO2 07/19/16 11:53 Nasal Cannula 2.0 07/19/16 11:52 97.9 85 22 127/80 95 97.9 Physical Exam General: Alert, Oriented X3, Cooperative Heart: Regular rate Lungs: Crackles (left basilar crakles., rhonchis) Extremities: No clubbing, No cyanosis Labs LABS Laboratory Tests Test 07/19/16 04:20 White Blood Count 6.4x10^3/uL (4.0-11.0) Red Blood Count 3.30x10^6/uL (4.30-5.70) Hemoglobin 9.8g/dL (13.0-17.5) Hematocrit 29.8% (39.0-53.0) Mean Corpuscular Volume 90fL (79-100) Mean Corpuscular Hemoglobin 30pg (25-35) Mean Corpuscular Hemoglobin Concent 33g/dL (31-37) Red Cell Distribution Width 14.1% (11.5-14.5) Platelet Count 201x10^3/uL (140-400) Neutrophils (%) (Auto) 75% (31-73) Lymphocytes (%) (Auto) 12% (24-48) Monocytes (%) (Auto) 10% (0-9) Eosinophils (%) (Auto) 2% (0-3) Basophils (%) (Auto) 1% (0-3) Neutrophils # (Auto) 4.8x10^3uL (1.8-7.7) Lymphocytes # (Auto) 0.8x10^3/uL (1.0-4.8) Monocytes # (Auto) 0.6x10^3/uL (0.0-1.1) Eosinophils # (Auto) 0.1x10^3/uL (0.0-0.7) Basophils # (Auto) 0.1x10^3/uL (0.0-0.2) Sodium Level 138mmol/L (136-145) Potassium Level 3.7mmol/L (3.5-5.1) Chloride Level 104mmol/L (98-107) Carbon Dioxide Level 29mmol/L (21-32) Anion Gap 5 (6-14) Blood Urea Nitrogen 15mg/dL (8-26) Creatinine 1.2mg/dL (0.7-1.3) Estimated GFR (Cockcroft-Gault) 58.3 Glucose Level 97mg/dL (70-99) Calcium Level 8.3mg/dL (8.5-10.1) Review of Systems Review of Systems no chills, chest pain Assessment and Plan Assessmemt and Plan Problems Medical Problems: (1) Diarrhea Status: Acute (2) Hospital-acquired pneumonia Status: Acute Problems: Comment Review of Relevant I have reviewed the following items urban (where applicable) has been applied. Labs Laboratory Tests Test 07/17/16 13:50 07/18/16 04:25 07/19/16 04:20 Influenza Type A Antigen Negative (NEGATIVE) Influenza Type B Antigen Negative (NEGATIVE) White Blood Count 9.1x10^3/uL (4.0-11.0) 6.4x10^3/uL (4.0-11.0) Red Blood Count 3.50x10^6/uL (4.30-5.70) 3.30x10^6/uL (4.30-5.70) Hemoglobin 10.4g/dL (13.0-17.5) 9.8g/dL (13.0-17.5) Hematocrit 32.4% (39.0-53.0) 29.8% (39.0-53.0) Mean Corpuscular Volume 93fL (79-100) 90fL (79-100) Mean Corpuscular Hemoglobin 30pg (25-35) 30pg (25-35) Mean Corpuscular Hemoglobin Concent 32g/dL (31-37) 33g/dL (31-37) Red Cell Distribution Width 14.2% (11.5-14.5) 14.1% (11.5-14.5) Platelet Count 161x10^3/uL (140-400) 201x10^3/uL (140-400) Neutrophils (%) (Auto) 83% (31-73) 75% (31-73) Lymphocytes (%) (Auto) 7% (24-48) 12% (24-48) Monocytes (%) (Auto) 8% (0-9) 10% (0-9) Eosinophils (%) (Auto) 2% (0-3) 2% (0-3) Basophils (%) (Auto) 1% (0-3) 1% (0-3) Neutrophils # (Auto) 7.5x10^3uL (1.8-7.7) 4.8x10^3uL (1.8-7.7) Lymphocytes # (Auto) 0.6x10^3/uL (1.0-4.8) 0.8x10^3/uL (1.0-4.8) Monocytes # (Auto) 0.7x10^3/uL (0.0-1.1) 0.6x10^3/uL (0.0-1.1) Eosinophils # (Auto) 0.2x10^3/uL (0.0-0.7) 0.1x10^3/uL (0.0-0.7) Basophils # (Auto) 0.1x10^3/uL (0.0-0.2) 0.1x10^3/uL (0.0-0.2) Sodium Level 138mmol/L (136-145) 138mmol/L (136-145) Potassium Level 4.2mmol/L (3.5-5.1) 3.7mmol/L (3.5-5.1) Chloride Level 104mmol/L (98-107) 104mmol/L (98-107) Carbon Dioxide Level 23mmol/L (21-32) 29mmol/L (21-32) Anion Gap 11 (6-14) 5 (6-14) Blood Urea Nitrogen 15mg/dL (8-26) 15mg/dL (8-26) Creatinine 1.0mg/dL (0.7-1.3) 1.2mg/dL (0.7-1.3) Estimated GFR (Cockcroft-Gault) 71.9 58.3 Glucose Level 108mg/dL (70-99) 97mg/dL (70-99) Calcium Level 8.0mg/dL (8.5-10.1) 8.3mg/dL (8.5-10.1) Laboratory Tests Test 07/19/16 04:20 White Blood Count 6.4x10^3/uL (4.0-11.0) Red Blood Count 3.30x10^6/uL (4.30-5.70) Hemoglobin 9.8g/dL (13.0-17.5) Hematocrit 29.8% (39.0-53.0) Mean Corpuscular Volume 90fL (79-100) Mean Corpuscular Hemoglobin 30pg (25-35) Mean Corpuscular Hemoglobin Concent 33g/dL (31-37) Red Cell Distribution Width 14.1% (11.5-14.5) Platelet Count 201x10^3/uL (140-400) Neutrophils (%) (Auto) 75% (31-73) Lymphocytes (%) (Auto) 12% (24-48) Monocytes (%) (Auto) 10% (0-9) Eosinophils (%) (Auto) 2% (0-3) Basophils (%) (Auto) 1% (0-3) Neutrophils # (Auto) 4.8x10^3uL (1.8-7.7) Lymphocytes # (Auto) 0.8x10^3/uL (1.0-4.8) Monocytes # (Auto) 0.6x10^3/uL (0.0-1.1) Eosinophils # (Auto) 0.1x10^3/uL (0.0-0.7) Basophils # (Auto) 0.1x10^3/uL (0.0-0.2) Sodium Level 138mmol/L (136-145) Potassium Level 3.7mmol/L (3.5-5.1) Chloride Level 104mmol/L (98-107) Carbon Dioxide Level 29mmol/L (21-32) Anion Gap 5 (6-14) Blood Urea Nitrogen 15mg/dL (8-26) Creatinine 1.2mg/dL (0.7-1.3) Estimated GFR (Cockcroft-Gault) 58.3 Glucose Level 97mg/dL (70-99) Calcium Level 8.3mg/dL (8.5-10.1) Microbiology 07/15/16 Blood Culture - Preliminary, Resulted NO GROWTH AFTER 3 DAYS Medications Current Medications Levofloxacin/ Dextrose 150 ml @ 100 mls/hr 1X ONCE IV Last administered on 20:17; Start 07/15/16 at 16:45; Stop 07/15/16 at 18:14; Status DC Sodium Chloride (Iv Sodium Chloride 0.9% 1000ml Bag) 1,000 ml @ 1,000 mls/hr 1X ONCE IV Last administered on 07/15/16 16:48; Start 07/15/16 at 16:45; Stop 07/15/16 at 17:44; Status DC Vancomycin HCl 1 each 1 each PRN DAILY PRN MC SEE COMMENTS Last administered on 07/17/16 07:40; Start 07/15/16 at 16:45; Stop 07/19/16 at 08:29; Status DC Vancomycin HCl/ Sodium Chloride (Iv Sodium Chloride 0.9% 500ml Bag) 500 ml @ 250 mls/hr 1X ONCE IV Last administered on 07/15/16 17:24; Start 07/15/16 at 17 :00; Stop 07/15/16 at 18:59; Status DC Ondansetron HCl 4 mg 4 mg PRN Q8HRS PRN IV NAUSEA/VOMITING; Start 07/15/16 at 17 :00; Stop 07/16/16 at 10:32; Status DC Sodium Chloride (Iv Sodium Chloride 0.9% 1000ml Bag) 1,000 ml @ 100 mls/hr Q10H IV Last administered on 07/16/16 18:15; Start 07/15/16 at 16:54; Stop at 16:53; Status DC Acetaminophen (Tylenol) 650 mg PRN Q4HRS PRN PO FEVER Last administered on 08:08; Start 07/15/16 at 17:00; Stop 07/16/16 at 10:32; Status DC Albuterol/ Ipratropium 3 ml 3 ml RTQID NEB Last administered on 07/16/16 07:21 ; Start 07/15/16 at 17:00; Stop 07/16/16 at 10:32; Status DC Vancomycin HCl/ Sodium Chloride (Iv Sodium Chloride 0.9% 250ml) 250 ml @ 167 mls/hr Q12H IV Last administered on 07/19/16 05:17; Start 07/16/16 at 06:00; Stop 07/19/16 at 08:29; Status DC Vancomycin HCl 1 each 1X ONCE MC Last administered on 07/17/16 05:30; Start at 05:30; Stop 07/17/16 at 05:31; Status DC Trimethoprim/ Sulfamethoxazole 1 tab 1 tab TID PO Last administered on 07:56; Start 07/16/16 at 10:30 Aztreonam/Sodium Chloride (Azactam/Iv Sodium Chloride 0.9% 50ml) 50 ml @ 100 mls/hr Q6HRS IV Last administered on 07/19/16 12:39; Start 07/16/16 at 12:00 Azithromycin (Zithromax) 500 mg DAILY PO Last administered on 07/19/16 07:57; Start 07/16/16 at 10:30; Stop 07/19/16 at 08:06; Status DC Vancomycin HCl 125 mg [id number] PO Last administered on 07/19/16 12:40; Start 07/16/16 at 10:30 Lactobacillus Acidophilus (Bacid, Majo-Bid) 1 tab TIDWMEALS PO Last administered on 07/19/16 12:40; Start 07/16/16 at 12:00 Ergocalciferol (Vitamin D2) 50,000 unit WEEKLY PO ; Start 07/22/16 at 09:00 Non-Formulary Medication 1 vial PRN QID PRN NEB SHORTNESS OF BREATH; Start 07/16 at 10:30; Stop 07/16/16 at 10:34; Status DC Non-Formulary Medication 1 inh PRN PRN IH SHORTNESS OF BREATH; Start 07/16/16 at 10:30; Stop 07/16/16 at 10:34; Status DC Albuterol/ Ipratropium (Duoneb) 3 ml RTQID NEB Last administered on 07/19/16 11 :53; Start 07/16/16 at 12:00 Acetaminophen (Tylenol) 650 mg PRN Q6HRS PRN PO MILD PAIN / TEMP Last administered on 07/18/16 22:59; Start 07/16/16 at 10:30 Ondansetron HCl (Zofran) 4 mg PRN Q6HRS PRN IV NAUSEA/VOMITING; Start 07/16/16 at 10:30 Budesonide (Pulmicort) 0.5 mg RTBID NEB Last administered on 07/19/16 07:04; Start 07/16/16 at 11:30 Albuterol Sulfate (Ventolin Neb Soln) 2.5 mg PRN QID PRN NEB SHORTNESS OF BREATH Last administered on 07/17/16 00:14; Start 07/16/16 at 10:45 Enoxaparin Sodium (Lovenox 40mg Syringe) 40 mg Q24H SQ Last administered on 07/19 12:40; Start 07/16/16 at 13:00 Oseltamivir Phosphate 75 mg 75 mg BID PO Last administered on 07/18/16 08:40; Start 07/17/16 at 11:00; Stop 07/18/16 at 09:27; Status DC Sodium Chloride (Iv Sodium Chloride 0.9% 1000ml Bag) 1,000 ml @ 75 mls/hr 1X ONCE IV Last administered on 07/18/16 13:00; Start 07/18/16 at 13:00; Stop at 02:19; Status DC Diphenhydramine HCl (Benadryl) 50 mg PRN QHS PRN PO ITCHING Last administered on 07/19/16 01:11; Start 07/19/16 at 01:15 Nystatin 5 ml [id number] Last administered on 07/19/16 12:40; Start 07/19/16 at 09:00 Active Scripts Active Vitamin D2 (Ergocalciferol (Vitamin D2)) 50,000 Unit Capsule 50,000 Unit PO WEEKLY Reported Albuterol Sulfate Neb Soln (Albuterol Sulfate) 0.63 Mg/3 Ml Vial.neb 1 Vial NEB PRN QID PRN Advair 500-50 Diskus (Fluticasone/Salmeterol) 1 Each Disk.w.dev 1 Inh IH PRN PRN Vitals/I & O Vital Sign - Last 24 Hours 07/18/16 07/18/16 07/18/16 07/18/16 15:00 15:52 19:39 19:47 Temp 98.8 98.8 Pulse 109 Resp 20 B/P 96/54 Pulse Ox 95 97 97 O2 Delivery Nasal Cannula Nasal Cannula Nasal Cannula Nasal Cannula O2 Flow Rate 3.0 2.0 2.0 2.0 07/18/16 07/18/16 07/18/16 07/19/16 19:55 20:16 23:41 03:47 Temp 100.4 100.8 97.7 100.4 100.8 97.7 Pulse 116 115 99 Resp 18 20 20 B/P 122/66 105/50 106/59 Pulse Ox 96 93 98 O2 Delivery Nasal Cannula Nasal Cannula Nasal Cannula Nasal Cannula O2 Flow Rate 3.0 2.0 2.0 2.0 07/19/16 07/19/16 07/19/16 07/19/16 07:00 07:05 08:00 11:52 Temp 97.9 97.9 97.9 97.9 Pulse 74 85 Resp 22 22 B/P 124/67 127/80 Pulse Ox 93 97 95 O2 Delivery Nasal Cannula Nasal Cannula Nasal Cannula Nasal Cannula O2 Flow Rate 3.0 2.0 2.0 3.0 07/19/16 11:53 O2 Delivery Nasal Cannula O2 Flow Rate 2.0 Intake and Output 07/18/16 07/18/16 07/19/16 15:00 23:00 07:00 Intake Total 180 ml 1250 ml Balance 180 ml 1250 ml LAWRENCE BARR MD Jul 19, 2016 13:49
[2016-07-19 14:58] VITALS: BP 132/69
[2016-07-19 19:25] VITALS: BP 119/62
[2016-07-19] MEDS: HYDROCODONE/APAP 5/325MG TABLET. PO PRN (21:07)
[2016-07-19 23:35] VITALS: BP 112/56
[2016-07-20] MEDS: AZTREONAM 1 GM in IV NORMAL SALINE 50ML 50 ML IV SCH ×4 (00:49→17:39)
[2016-07-20 03:55] VITALS: BP 127/61
[2016-07-20 05:12] LABS: BASO % 1 % (0-3); EOS % 5 % (0-3); HEMATOCRIT 30.2 % (39.0-53.0); HEMOGLOBIN 9.9 g/dL (13.0-17.5); LYMPH # 0.7 x10^3/uL (1.0-4.8); LYMPH % 13 % (24-48); MEAN CORPUSCULAR HEMOGLOBIN 30 pg (25-35); MEAN CORPUSCULAR HGB CONC 33 g/dL (31-37); MEAN CORPUSCULAR VOLUME 91 fL (79-100); MONO % 9 % (0-9); NEUT % 73 % (31-73); PLATELET COUNT 230 x10^3/uL (140-400); RED BLOOD COUNT 3.31 x10^6/uL (4.30-5.70); RED CELL DISTRIBUTION WIDTH 13.9 % (11.5-14.5); WHITE BLOOD COUNT 5.3 x10^3/uL (4.0-11.0)
[2016-07-20 05:57] LABS: CALCIUM 8.4 mg/dL (8.5-10.1); CREATININE 1.2 mg/dL (0.7-1.3); GFR 58.3; POTASSIUM 3.8 mmol/L (3.5-5.1)
[2016-07-20 07:00] VITALS: BP 117/69
[2016-07-20] MEDS: IPRATRPIUM/ALBUTEROL 0.5/2.5MG 3 ML NEBU. NEB SCH ×4 (07:26→20:55)
[2016-07-20] MEDS: BUDESONIDE 0.5 MG/2 ML NEBU NEB SCH ×2 (07:27→20:53)
[2016-07-20] MEDS: SMZ/TMP 800/160MG TABLET. PO SCH ×3 (08:40→21:00)
[2016-07-20] MEDS: NYSTATIN 100,000 UNITS/ML 5 ML ORAL.SUSP. SWSW SCH ×4 (08:40→21:32)
[2016-07-20] MEDS: VANCOMYCIN 125 MG/2.5 ML ORAL SOLUTION. PO SCH ×4 (08:40→21:33)
[2016-07-20] MEDS: LACTOBACILLUS ACIDOPH & BULGAR 1 TABLET. PO SCH ×3 (08:40→17:38)
[2016-07-20 11:00] VITALS: BP 108/59
--- NOTE | 2016-07-20 12:49 | PDOC ---
PROGRESS NOTES Chief Complaint Chief Complaint COUGH ASSESSMENT AND PLAN: 1. HCAP: recurrent vs persistent with recent Stenotrophomonas PNA; Flu neg. on Bactrim, aztreonam. ID following 2. Sepsis: slowly improving, VS labile 3. COPD: Dr Tobar following. nebs PRN 4. CHF: chronic diastolic. 5. C. diff colitis: on PO vanco, lactobacillus 6. Foot wound 7. prophylaxis: lovenox History of Present Illness History of Present Illness Vitals Vitals Vital Signs Date Time Temp Pulse Resp B/P Pulse Ox O2 Delivery O2 Flow Rate FiO2 07/20/16 11:59 96 Nasal Cannula 2.0 07/20/16 11:00 99.5 65 24 108/59 99.5 Physical Exam General: Alert, Oriented X3, Cooperative Heart: Regular rate Lungs: Crackles (left basilar crakles., rhonchis) Extremities: No clubbing, No cyanosis Labs LABS Laboratory Tests Test 07/20/16 04:45 White Blood Count 5.3x10^3/uL (4.0-11.0) Red Blood Count 3.31x10^6/uL (4.30-5.70) Hemoglobin 9.9g/dL (13.0-17.5) Hematocrit 30.2% (39.0-53.0) Mean Corpuscular Volume 91fL (79-100) Mean Corpuscular Hemoglobin 30pg (25-35) Mean Corpuscular Hemoglobin Concent 33g/dL (31-37) Red Cell Distribution Width 13.9% (11.5-14.5) Platelet Count 230x10^3/uL (140-400) Neutrophils (%) (Auto) 73% (31-73) Lymphocytes (%) (Auto) 13% (24-48) Monocytes (%) (Auto) 9% (0-9) Eosinophils (%) (Auto) 5% (0-3) Basophils (%) (Auto) 1% (0-3) Neutrophils # (Auto) 3.9x10^3uL (1.8-7.7) Lymphocytes # (Auto) 0.7x10^3/uL (1.0-4.8) Monocytes # (Auto) 0.5x10^3/uL (0.0-1.1) Eosinophils # (Auto) 0.2x10^3/uL (0.0-0.7) Basophils # (Auto) 0.0x10^3/uL (0.0-0.2) Sodium Level 137mmol/L (136-145) Potassium Level 3.8mmol/L (3.5-5.1) Chloride Level 103mmol/L (98-107) Carbon Dioxide Level 30mmol/L (21-32) Anion Gap 4 (6-14) Blood Urea Nitrogen 14mg/dL (8-26) Creatinine 1.2mg/dL (0.7-1.3) Estimated GFR (Cockcroft-Gault) 58.3 Glucose Level 89mg/dL (70-99) Calcium Level 8.4mg/dL (8.5-10.1) Review of Systems Review of Systems mild SOB at rest, severe PERLA Comment Review of Relevant I have reviewed the following items urban (where applicable) has been applied. Labs Laboratory Tests Test 07/19/16 04:20 07/20/16 04:45 White Blood Count 6.4x10^3/uL (4.0-11.0) 5.3x10^3/uL (4.0-11.0) Red Blood Count 3.30x10^6/uL (4.30-5.70) 3.31x10^6/uL (4.30-5.70) Hemoglobin 9.8g/dL (13.0-17.5) 9.9g/dL (13.0-17.5) Hematocrit 29.8% (39.0-53.0) 30.2% (39.0-53.0) Mean Corpuscular Volume 90fL (79-100) 91fL (79-100) Mean Corpuscular Hemoglobin 30pg (25-35) 30pg (25-35) Mean Corpuscular Hemoglobin Concent 33g/dL (31-37) 33g/dL (31-37) Red Cell Distribution Width 14.1% (11.5-14.5) 13.9% (11.5-14.5) Platelet Count 201x10^3/uL (140-400) 230x10^3/uL (140-400) Neutrophils (%) (Auto) 75% (31-73) 73% (31-73) Lymphocytes (%) (Auto) 12% (24-48) 13% (24-48) Monocytes (%) (Auto) 10% (0-9) 9% (0-9) Eosinophils (%) (Auto) 2% (0-3) 5% (0-3) Basophils (%) (Auto) 1% (0-3) 1% (0-3) Neutrophils # (Auto) 4.8x10^3uL (1.8-7.7) 3.9x10^3uL (1.8-7.7) Lymphocytes # (Auto) 0.8x10^3/uL (1.0-4.8) 0.7x10^3/uL (1.0-4.8) Monocytes # (Auto) 0.6x10^3/uL (0.0-1.1) 0.5x10^3/uL (0.0-1.1) Eosinophils # (Auto) 0.1x10^3/uL (0.0-0.7) 0.2x10^3/uL (0.0-0.7) Basophils # (Auto) 0.1x10^3/uL (0.0-0.2) 0.0x10^3/uL (0.0-0.2) Sodium Level 138mmol/L (136-145) 137mmol/L (136-145) Potassium Level 3.7mmol/L (3.5-5.1) 3.8mmol/L (3.5-5.1) Chloride Level 104mmol/L (98-107) 103mmol/L (98-107) Carbon Dioxide Level 29mmol/L (21-32) 30mmol/L (21-32) Anion Gap 5 (6-14) 4 (6-14) Blood Urea Nitrogen 15mg/dL (8-26) 14mg/dL (8-26) Creatinine 1.2mg/dL (0.7-1.3) 1.2mg/dL (0.7-1.3) Estimated GFR (Cockcroft-Gault) 58.3 58.3 Glucose Level 97mg/dL (70-99) 89mg/dL (70-99) Calcium Level 8.3mg/dL (8.5-10.1) 8.4mg/dL (8.5-10.1) Laboratory Tests Test 07/20/16 04:45 White Blood Count 5.3x10^3/uL (4.0-11.0) Red Blood Count 3.31x10^6/uL (4.30-5.70) Hemoglobin 9.9g/dL (13.0-17.5) Hematocrit 30.2% (39.0-53.0) Mean Corpuscular Volume 91fL (79-100) Mean Corpuscular Hemoglobin 30pg (25-35) Mean Corpuscular Hemoglobin Concent 33g/dL (31-37) Red Cell Distribution Width 13.9% (11.5-14.5) Platelet Count 230x10^3/uL (140-400) Neutrophils (%) (Auto) 73% (31-73) Lymphocytes (%) (Auto) 13% (24-48) Monocytes (%) (Auto) 9% (0-9) Eosinophils (%) (Auto) 5% (0-3) Basophils (%) (Auto) 1% (0-3) Neutrophils # (Auto) 3.9x10^3uL (1.8-7.7) Lymphocytes # (Auto) 0.7x10^3/uL (1.0-4.8) Monocytes # (Auto) 0.5x10^3/uL (0.0-1.1) Eosinophils # (Auto) 0.2x10^3/uL (0.0-0.7) Basophils # (Auto) 0.0x10^3/uL (0.0-0.2) Sodium Level 137mmol/L (136-145) Potassium Level 3.8mmol/L (3.5-5.1) Chloride Level 103mmol/L (98-107) Carbon Dioxide Level 30mmol/L (21-32) Anion Gap 4 (6-14) Blood Urea Nitrogen 14mg/dL (8-26) Creatinine 1.2mg/dL (0.7-1.3) Estimated GFR (Cockcroft-Gault) 58.3 Glucose Level 89mg/dL (70-99) Calcium Level 8.4mg/dL (8.5-10.1) Microbiology 07/15/16 Blood Culture - Preliminary, Resulted NO GROWTH AFTER 4 DAYS Medications Current Medications Levofloxacin/ Dextrose 150 ml @ 100 mls/hr 1X ONCE IV Last administered on 20:17; Start 07/15/16 at 16:45; Stop 07/15/16 at 18:14; Status DC Sodium Chloride (Iv Sodium Chloride 0.9% 1000ml Bag) 1,000 ml @ 1,000 mls/hr 1X ONCE IV Last administered on 07/15/16 16:48; Start 07/15/16 at 16:45; Stop 07/15/16 at 17:44; Status DC Vancomycin HCl 1 each 1 each PRN DAILY PRN MC SEE COMMENTS Last administered on 07/17/16 07:40; Start 07/15/16 at 16:45; Stop 07/19/16 at 08:29; Status DC Vancomycin HCl/ Sodium Chloride (Iv Sodium Chloride 0.9% 500ml Bag) 500 ml @ 250 mls/hr 1X ONCE IV Last administered on 07/15/16 17:24; Start 07/15/16 at 17 :00; Stop 07/15/16 at 18:59; Status DC Ondansetron HCl 4 mg 4 mg PRN Q8HRS PRN IV NAUSEA/VOMITING; Start 07/15/16 at 17 :00; Stop 07/16/16 at 10:32; Status DC Sodium Chloride (Iv Sodium Chloride 0.9% 1000ml Bag) 1,000 ml @ 100 mls/hr Q10H IV Last administered on 07/16/16 18:15; Start 07/15/16 at 16:54; Stop at 16:53; Status DC Acetaminophen (Tylenol) 650 mg PRN Q4HRS PRN PO FEVER Last administered on 08:08; Start 07/15/16 at 17:00; Stop 07/16/16 at 10:32; Status DC Albuterol/ Ipratropium 3 ml 3 ml RTQID NEB Last administered on 07/16/16 07:21 ; Start 07/15/16 at 17:00; Stop 07/16/16 at 10:32; Status DC Vancomycin HCl/ Sodium Chloride (Iv Sodium Chloride 0.9% 250ml) 250 ml @ 167 mls/hr Q12H IV Last administered on 07/19/16 05:17; Start 07/16/16 at 06:00; Stop 07/19/16 at 08:29; Status DC Vancomycin HCl 1 each 1X ONCE MC Last administered on 07/17/16 05:30; Start at 05:30; Stop 07/17/16 at 05:31; Status DC Trimethoprim/ Sulfamethoxazole 1 tab 1 tab TID PO Last administered on 08:40; Start 07/16/16 at 10:30 Aztreonam/Sodium Chloride (Azactam/Iv Sodium Chloride 0.9% 50ml) 50 ml @ 100 mls/hr Q6HRS IV Last administered on 07/20/16 11:56; Start 07/16/16 at 12:00 Azithromycin (Zithromax) 500 mg DAILY PO Last administered on 07/19/16 07:57; Start 07/16/16 at 10:30; Stop 07/19/16 at 08:06; Status DC Vancomycin HCl 125 mg [id number] PO Last administered on 07/20/16 08:40; Start 07/16/16 at 10:30 Lactobacillus Acidophilus (Bacid, Majo-Bid) 1 tab TIDWMEALS PO Last administered on 07/20/16 11:56; Start 07/16/16 at 12:00 Ergocalciferol (Vitamin D2) 50,000 unit WEEKLY PO ; Start 07/22/16 at 09:00 Non-Formulary Medication 1 vial PRN QID PRN NEB SHORTNESS OF BREATH; Start 07/16 at 10:30; Stop 07/16/16 at 10:34; Status DC Non-Formulary Medication 1 inh PRN PRN IH SHORTNESS OF BREATH; Start 07/16/16 at 10:30; Stop 07/16/16 at 10:34; Status DC Albuterol/ Ipratropium (Duoneb) 3 ml RTQID NEB Last administered on 07/20/16 11 :59; Start 07/16/16 at 12:00 Acetaminophen (Tylenol) 650 mg PRN Q6HRS PRN PO MILD PAIN / TEMP Last administered on 07/18/16 22:59; Start 07/16/16 at 10:30 Ondansetron HCl (Zofran) 4 mg PRN Q6HRS PRN IV NAUSEA/VOMITING; Start 07/16/16 at 10:30 Budesonide (Pulmicort) 0.5 mg RTBID NEB Last administered on 07/20/16 07:27; Start 07/16/16 at 11:30 Albuterol Sulfate (Ventolin Neb Soln) 2.5 mg PRN QID PRN NEB SHORTNESS OF BREATH Last administered on 07/17/16 00:14; Start 07/16/16 at 10:45 Enoxaparin Sodium (Lovenox 40mg Syringe) 40 mg Q24H SQ Last administered on 07/19 12:40; Start 07/16/16 at 13:00 Oseltamivir Phosphate 75 mg 75 mg BID PO Last administered on 07/18/16 08:40; Start 07/17/16 at 11:00; Stop 07/18/16 at 09:27; Status DC Sodium Chloride (Iv Sodium Chloride 0.9% 1000ml Bag) 1,000 ml @ 75 mls/hr 1X ONCE IV Last administered on 07/18/16 13:00; Start 07/18/16 at 13:00; Stop at 02:19; Status DC Diphenhydramine HCl (Benadryl) 50 mg PRN QHS PRN PO ITCHING Last administered on 07/19/16 21:08; Start 07/19/16 at 01:15 Nystatin 5 ml [id number] Last administered on 07/20/16 08:40; Start 07/19/16 at 09:00 Acetaminophen/ Hydrocodone Bitart (Lortab 5/325) 1 tab PRN Q4HRS PRN PO PAIN MILD TO MOD Last administered on 07/19/16 21:07; Start 07/19/16 at 19:30 Active Scripts Active Vitamin D2 (Ergocalciferol (Vitamin D2)) 50,000 Unit Capsule 50,000 Unit PO WEEKLY Reported Albuterol Sulfate Neb Soln (Albuterol Sulfate) 0.63 Mg/3 Ml Vial.neb 1 Vial NEB PRN QID PRN Advair 500-50 Diskus (Fluticasone/Salmeterol) 1 Each Disk.w.dev 1 Inh IH PRN PRN Vitals/I & O Vital Sign - Last 24 Hours 1/6/07/19/16 07/19/16 07/19/16 14:58 15:44 19:25 19:40 Temp 99.7 100.4 99.7 100.4 Pulse 119 91 Resp 22 22 B/P 132/69 119/62 Pulse Ox 94 93 94 O2 Delivery Nasal Cannula Nasal Cannula Nasal Cannula Nasal Cannula O2 Flow Rate 3.0 2.0 3.0 2.0 07/19/16 07/19/16 07/19/16 07/19/16 19:40 21:07 22:07 23:35 Temp 98.1 98.1 Pulse 99 Resp 20 18 20 B/P 112/56 Pulse Ox 94 3 96 97 O2 Delivery Nasal Cannula Nasal Cannula Room Air Nasal Cannula O2 Flow Rate 2.0 3.0 07/20/16 07/20/16 07/20/16 07/20/16 03:55 07:00 07:29 08:00 Temp 98.1 97.9 98.1 97.9 Pulse 110 74 Resp 24 22 B/P 127/61 117/69 Pulse Ox 93 96 95 O2 Delivery Nasal Cannula Room Air Nasal Cannula Nasal Cannula O2 Flow Rate 3.0 2.0 2.0 07/20/16 07/20/16 11:00 11:59 Temp 99.5 99.5 Pulse 65 Resp 24 B/P 108/59 Pulse Ox 96 96 O2 Delivery Nasal Cannula Nasal Cannula O2 Flow Rate 3.0 2.0 Intake and Output 07/19/16 07/19/16 07/20/16 15:00 23:00 07:00 Intake Total 200 ml Output Total 200 ml Balance 0 ml MICHELE KURTZ MD Jul 20, 2016 12:48
--- NOTE | 2016-07-20 12:59 | PDOC ---
Infectious Disease Note Subjective Subjective Productive cough, denies CP or SOA Loose stools Diminished appetite Fever 100.4, none so far today ROS ROS GEN: Denies chills, sweats GI: Denies n/v Vital Sign Vital Signs Vital Signs Date Time Temp Pulse Resp B/P Pulse Ox O2 Delivery O2 Flow Rate FiO2 07/20/16 11:59 96 Nasal Cannula 2.0 07/20/16 11:00 99.5 65 24 108/59 99.5 Physical Exam PHYSICAL EXAM GENERAL: Propped up in bed, NAD HEENT: Oral cavity clear NECK: Supple, no JVD. LUNGS: Clear HEART: S1 and S2. ABDOMEN: Soft, nontender and BS present EXTREMITIES: BLE edema. Callused area plantar aspect of the mid right forefoot. SKIN:0 Warm to touch without signs of rash. NEUROLOGIC: Alert and oriented. Labs Lab Laboratory Tests Test 07/20/16 04:45 White Blood Count 5.3x10^3/uL (4.0-11.0) Red Blood Count 3.31x10^6/uL (4.30-5.70) Hemoglobin 9.9g/dL (13.0-17.5) Hematocrit 30.2% (39.0-53.0) Mean Corpuscular Volume 91fL (79-100) Mean Corpuscular Hemoglobin 30pg (25-35) Mean Corpuscular Hemoglobin Concent 33g/dL (31-37) Red Cell Distribution Width 13.9% (11.5-14.5) Platelet Count 230x10^3/uL (140-400) Neutrophils (%) (Auto) 73% (31-73) Lymphocytes (%) (Auto) 13% (24-48) Monocytes (%) (Auto) 9% (0-9) Eosinophils (%) (Auto) 5% (0-3) Basophils (%) (Auto) 1% (0-3) Neutrophils # (Auto) 3.9x10^3uL (1.8-7.7) Lymphocytes # (Auto) 0.7x10^3/uL (1.0-4.8) Monocytes # (Auto) 0.5x10^3/uL (0.0-1.1) Eosinophils # (Auto) 0.2x10^3/uL (0.0-0.7) Basophils # (Auto) 0.0x10^3/uL (0.0-0.2) Sodium Level 137mmol/L (136-145) Potassium Level 3.8mmol/L (3.5-5.1) Chloride Level 103mmol/L (98-107) Carbon Dioxide Level 30mmol/L (21-32) Anion Gap 4 (6-14) Blood Urea Nitrogen 14mg/dL (8-26) Creatinine 1.2mg/dL (0.7-1.3) Estimated GFR (Cockcroft-Gault) 58.3 Glucose Level 89mg/dL (70-99) Calcium Level 8.4mg/dL (8.5-10.1) Micro BLOOD CULTURE Preliminary NO GROWTH AFTER 4 DAYS Objective Assessment Fever low grade - Influenza neg. C-diff + + C-diff 1/3 Leukocytosis - better HCAP - improving clinically Multiple antibiotic allergies H/o Stenotrophomonas Foot wound - not infected Plan Plan of Care Po Nystatin Contact isolation Cont Bactrim/Aztreonam Completed 3-day course of Azithromax Cont po Vanc F/u labs and cults Monitor Temp Attending Co-Sign The patient was seen and interviewed as well as examined at the bedside. The chart was reviewed. The case was discussed. Agree with the plan of care. KIANA POWELL APRN Jul 20, 2016 12:59 WANDA SAENZ MD Jul 20, 2016 14:26
[2016-07-20] MEDS ORDERED: CONTRAST GIVEN MC PRN (13:45)
[2016-07-20] MEDS: ENOXAPARIN 40 MG/0.4 ML DISP.SYRIN. SQ SCH (14:02)
[2016-07-20 15:00] VITALS: BP 106/64
[2016-07-20 19:20] VITALS: BP 125/59
[2016-07-20] MEDS: ACETAMINOPHEN 325 MG TABLET. PO PRN (21:00)
[2016-07-20] MEDS: HYDROCODONE/APAP 5/325MG TABLET. PO PRN (21:00)
[2016-07-20] MEDS: DIPHENHYDRAMINE HCL 25 MG CAPSULE PO PRN (21:01)
[2016-07-20 23:15] VITALS: BP 94/44
[2016-07-21] MEDS: AZTREONAM 1 GM in IV NORMAL SALINE 50ML 50 ML IV SCH ×4 (00:16→17:43)
[2016-07-21 03:10] VITALS: BP 112/55
[2016-07-21 06:25] LABS: BASO % 1 % (0-3); EOS % 8 % (0-3); HEMATOCRIT 30.8 % (39.0-53.0); HEMOGLOBIN 10.2 g/dL (13.0-17.5); LYMPH # 0.7 x10^3/uL (1.0-4.8); LYMPH % 13 % (24-48); MEAN CORPUSCULAR HEMOGLOBIN 29 pg (25-35); MEAN CORPUSCULAR HGB CONC 33 g/dL (31-37); MEAN CORPUSCULAR VOLUME 89 fL (79-100); MONO % 8 % (0-9); NEUT % 71 % (31-73); PLATELET COUNT 295 x10^3/uL (140-400); RED BLOOD COUNT 3.46 x10^6/uL (4.30-5.70); RED CELL DISTRIBUTION WIDTH 13.9 % (11.5-14.5); WHITE BLOOD COUNT 5.5 x10^3/uL (4.0-11.0)
[2016-07-21 06:37] LABS: ALBUMIN 1.8 g/dL (3.4-5.0); ALBUMIN/GLOBULIN RATIO 0.5 (1.0-1.7); CALCIUM 8.3 mg/dL (8.5-10.1); CREATININE 1.2 mg/dL (0.7-1.3); GFR 58.3; POTASSIUM 3.9 mmol/L (3.5-5.1); TOTAL BILIRUBIN 0.3 mg/dL (0.2-1.0); TOTAL PROTEIN 5.1 g/dL (6.4-8.2)
[2016-07-21] MEDS: IPRATRPIUM/ALBUTEROL 0.5/2.5MG 3 ML NEBU. NEB SCH ×4 (07:20→18:13)
[2016-07-21] MEDS: BUDESONIDE 0.5 MG/2 ML NEBU NEB SCH ×2 (07:21→18:14)
[2016-07-21 07:40] VITALS: BP 132/66
[2016-07-21] MEDS: NYSTATIN 100,000 UNITS/ML 5 ML ORAL.SUSP. SWSW SCH ×4 (07:55→20:38)
[2016-07-21] MEDS: VANCOMYCIN 125 MG/2.5 ML ORAL SOLUTION. PO SCH ×4 (07:55→20:38)
[2016-07-21] MEDS: LACTOBACILLUS ACIDOPH & BULGAR 1 TABLET. PO SCH ×3 (07:55→17:44)
[2016-07-21] MEDS: SMZ/TMP 800/160MG TABLET. PO SCH ×3 (07:55→20:38)
--- NOTE | 2016-07-21 10:00 | PDOC ---
Infectious Disease Note Subjective Subjective Feeling alright this morning Less productive cough, denies CP or SOA Loose stools Appetite improved, ate breakfast Fever. Tmax 102.0 ROS ROS Vital Sign Vital Signs Vital Signs Date Time Temp Pulse Resp B/P Pulse Ox O2 Delivery O2 Flow Rate FiO2 07/21/16 08:00 Nasal Cannula 3.0 07/21/16 07:40 100.0 112 22 132/66 98 100.0 Physical Exam PHYSICAL EXAM GENERAL: Propped up in bed, NAD HEENT: Oral cavity clear NECK: Supple, no JVD. LUNGS: Clear HEART: S1 and S2. ABDOMEN: Soft, nontender and BS present EXTREMITIES: BLE edema, RUE edema SKIN:0 Warm to touch without signs of rash. NEUROLOGIC: Alert and oriented. Labs Lab Laboratory Tests Test 07/21/16 06:00 White Blood Count 5.5x10^3/uL (4.0-11.0) Red Blood Count 3.46x10^6/uL (4.30-5.70) Hemoglobin 10.2g/dL (13.0-17.5) Hematocrit 30.8% (39.0-53.0) Mean Corpuscular Volume 89fL (79-100) Mean Corpuscular Hemoglobin 29pg (25-35) Mean Corpuscular Hemoglobin Concent 33g/dL (31-37) Red Cell Distribution Width 13.9% (11.5-14.5) Platelet Count 295x10^3/uL (140-400) Neutrophils (%) (Auto) 71% (31-73) Lymphocytes (%) (Auto) 13% (24-48) Monocytes (%) (Auto) 8% (0-9) Eosinophils (%) (Auto) 8% (0-3) Basophils (%) (Auto) 1% (0-3) Neutrophils # (Auto) 3.9x10^3uL (1.8-7.7) Lymphocytes # (Auto) 0.7x10^3/uL (1.0-4.8) Monocytes # (Auto) 0.4x10^3/uL (0.0-1.1) Eosinophils # (Auto) 0.4x10^3/uL (0.0-0.7) Basophils # (Auto) 0.0x10^3/uL (0.0-0.2) Sodium Level 138mmol/L (136-145) Potassium Level 3.9mmol/L (3.5-5.1) Chloride Level 104mmol/L (98-107) Carbon Dioxide Level 28mmol/L (21-32) Anion Gap 6 (6-14) Blood Urea Nitrogen 14mg/dL (8-26) Creatinine 1.2mg/dL (0.7-1.3) Estimated GFR (Cockcroft-Gault) 58.3 BUN/Creatinine Ratio 12 (6-20) Glucose Level 96mg/dL (70-99) Calcium Level 8.3mg/dL (8.5-10.1) Total Bilirubin 0.3mg/dL (0.2-1.0) Aspartate Amino Transf (AST/SGOT) 53U/L (15-37) Alanine Aminotransferase (ALT/SGPT) 38U/L (16-63) Alkaline Phosphatase 119U/L (46-116) Total Protein 5.1g/dL (6.4-8.2) Albumin 1.8g/dL (3.4-5.0) Albumin/Globulin Ratio 0.5 (1.0-1.7) Micro BLOOD CULTURE Preliminary NO GROWTH AFTER 4 DAYS Objective Assessment Fever low grade - Influenza neg. C-diff + + C-diff 1/3 Leukocytosis - better HCAP - improving clinically Multiple antibiotic allergies H/o Stenotrophomonas Foot wound - not infected Plan Plan of Care Contact isolation Cont Bactrim/Aztreonam Completed 3-day course of Azithromax Cont po Vanc F/u labs and cults Monitor Temp Attending Co-Sign The patient was seen and interviewed as well as examined at the bedside. The chart was reviewed. The case was discussed. Agree with the plan of care. KIANA POWELL APRN Jul 21, 2016 10:00 WANDA SAENZ MD Jul 21, 2016 12:23
[2016-07-21 10:43] VITALS: BP 123/60
--- NOTE | 2016-07-21 11:23 | PDOC ---
PROGRESS NOTES Chief Complaint Chief Complaint COUGH ASSESSMENT AND PLAN: 1. HCAP: recurrent vs persistent with recent Stenotrophomonas PNA; Flu neg. on Bactrim, aztreonam. ID following 2. Sepsis: improving, remains tachy 3. COPD: Dr Tobar following. nebs PRN, O2 4. CHF: chronic diastolic. 5. C. diff colitis: on PO vanco, lactobacillus 6. Foot wound: wound care team following 7. prophylaxis: lovenox History of Present Illness History of Present Illness Vitals Vitals Vital Signs Date Time Temp Pulse Resp B/P Pulse Ox O2 Delivery O2 Flow Rate FiO2 07/21/16 10:43 98.9 107 22 123/60 98 Nasal Cannula 3.0 98.9 Physical Exam General: Alert, Oriented X3, Cooperative Heart: Regular rate Lungs: Crackles (left basilar crackles., rhonchi) Extremities: No clubbing, No cyanosis Labs LABS Laboratory Tests Test 07/21/16 06:00 White Blood Count 5.5x10^3/uL (4.0-11.0) Red Blood Count 3.46x10^6/uL (4.30-5.70) Hemoglobin 10.2g/dL (13.0-17.5) Hematocrit 30.8% (39.0-53.0) Mean Corpuscular Volume 89fL (79-100) Mean Corpuscular Hemoglobin 29pg (25-35) Mean Corpuscular Hemoglobin Concent 33g/dL (31-37) Red Cell Distribution Width 13.9% (11.5-14.5) Platelet Count 295x10^3/uL (140-400) Neutrophils (%) (Auto) 71% (31-73) Lymphocytes (%) (Auto) 13% (24-48) Monocytes (%) (Auto) 8% (0-9) Eosinophils (%) (Auto) 8% (0-3) Basophils (%) (Auto) 1% (0-3) Neutrophils # (Auto) 3.9x10^3uL (1.8-7.7) Lymphocytes # (Auto) 0.7x10^3/uL (1.0-4.8) Monocytes # (Auto) 0.4x10^3/uL (0.0-1.1) Eosinophils # (Auto) 0.4x10^3/uL (0.0-0.7) Basophils # (Auto) 0.0x10^3/uL (0.0-0.2) Sodium Level 138mmol/L (136-145) Potassium Level 3.9mmol/L (3.5-5.1) Chloride Level 104mmol/L (98-107) Carbon Dioxide Level 28mmol/L (21-32) Anion Gap 6 (6-14) Blood Urea Nitrogen 14mg/dL (8-26) Creatinine 1.2mg/dL (0.7-1.3) Estimated GFR (Cockcroft-Gault) 58.3 BUN/Creatinine Ratio 12 (6-20) Glucose Level 96mg/dL (70-99) Calcium Level 8.3mg/dL (8.5-10.1) Total Bilirubin 0.3mg/dL (0.2-1.0) Aspartate Amino Transf (AST/SGOT) 53U/L (15-37) Alanine Aminotransferase (ALT/SGPT) 38U/L (16-63) Alkaline Phosphatase 119U/L (46-116) Total Protein 5.1g/dL (6.4-8.2) Albumin 1.8g/dL (3.4-5.0) Albumin/Globulin Ratio 0.5 (1.0-1.7) Review of Systems Review of Systems essentially unchanged. ++PERLA Comment Review of Relevant I have reviewed the following items urban (where applicable) has been applied. Labs Laboratory Tests Test 07/20/16 04:45 07/21/16 06:00 White Blood Count 5.3x10^3/uL (4.0-11.0) 5.5x10^3/uL (4.0-11.0) Red Blood Count 3.31x10^6/uL (4.30-5.70) 3.46x10^6/uL (4.30-5.70) Hemoglobin 9.9g/dL (13.0-17.5) 10.2g/dL (13.0-17.5) Hematocrit 30.2% (39.0-53.0) 30.8% (39.0-53.0) Mean Corpuscular Volume 91fL (79-100) 89fL (79-100) Mean Corpuscular Hemoglobin 30pg (25-35) 29pg (25-35) Mean Corpuscular Hemoglobin Concent 33g/dL (31-37) 33g/dL (31-37) Red Cell Distribution Width 13.9% (11.5-14.5) 13.9% (11.5-14.5) Platelet Count 230x10^3/uL (140-400) 295x10^3/uL (140-400) Neutrophils (%) (Auto) 73% (31-73) 71% (31-73) Lymphocytes (%) (Auto) 13% (24-48) 13% (24-48) Monocytes (%) (Auto) 9% (0-9) 8% (0-9) Eosinophils (%) (Auto) 5% (0-3) 8% (0-3) Basophils (%) (Auto) 1% (0-3) 1% (0-3) Neutrophils # (Auto) 3.9x10^3uL (1.8-7.7) 3.9x10^3uL (1.8-7.7) Lymphocytes # (Auto) 0.7x10^3/uL (1.0-4.8) 0.7x10^3/uL (1.0-4.8) Monocytes # (Auto) 0.5x10^3/uL (0.0-1.1) 0.4x10^3/uL (0.0-1.1) Eosinophils # (Auto) 0.2x10^3/uL (0.0-0.7) 0.4x10^3/uL (0.0-0.7) Basophils # (Auto) 0.0x10^3/uL (0.0-0.2) 0.0x10^3/uL (0.0-0.2) Sodium Level 137mmol/L (136-145) 138mmol/L (136-145) Potassium Level 3.8mmol/L (3.5-5.1) 3.9mmol/L (3.5-5.1) Chloride Level 103mmol/L (98-107) 104mmol/L (98-107) Carbon Dioxide Level 30mmol/L (21-32) 28mmol/L (21-32) Anion Gap 4 (6-14) 6 (6-14) Blood Urea Nitrogen 14mg/dL (8-26) 14mg/dL (8-26) Creatinine 1.2mg/dL (0.7-1.3) 1.2mg/dL (0.7-1.3) Estimated GFR (Cockcroft-Gault) 58.3 58.3 Glucose Level 89mg/dL (70-99) 96mg/dL (70-99) Calcium Level 8.4mg/dL (8.5-10.1) 8.3mg/dL (8.5-10.1) BUN/Creatinine Ratio 12 (6-20) Total Bilirubin 0.3mg/dL (0.2-1.0) Aspartate Amino Transf (AST/SGOT) 53U/L (15-37) Alanine Aminotransferase (ALT/SGPT) 38U/L (16-63) Alkaline Phosphatase 119U/L (46-116) Total Protein 5.1g/dL (6.4-8.2) Albumin 1.8g/dL (3.4-5.0) Albumin/Globulin Ratio 0.5 (1.0-1.7) Laboratory Tests Test 07/21/16 06:00 White Blood Count 5.5x10^3/uL (4.0-11.0) Red Blood Count 3.46x10^6/uL (4.30-5.70) Hemoglobin 10.2g/dL (13.0-17.5) Hematocrit 30.8% (39.0-53.0) Mean Corpuscular Volume 89fL (79-100) Mean Corpuscular Hemoglobin 29pg (25-35) Mean Corpuscular Hemoglobin Concent 33g/dL (31-37) Red Cell Distribution Width 13.9% (11.5-14.5) Platelet Count 295x10^3/uL (140-400) Neutrophils (%) (Auto) 71% (31-73) Lymphocytes (%) (Auto) 13% (24-48) Monocytes (%) (Auto) 8% (0-9) Eosinophils (%) (Auto) 8% (0-3) Basophils (%) (Auto) 1% (0-3) Neutrophils # (Auto) 3.9x10^3uL (1.8-7.7) Lymphocytes # (Auto) 0.7x10^3/uL (1.0-4.8) Monocytes # (Auto) 0.4x10^3/uL (0.0-1.1) Eosinophils # (Auto) 0.4x10^3/uL (0.0-0.7) Basophils # (Auto) 0.0x10^3/uL (0.0-0.2) Sodium Level 138mmol/L (136-145) Potassium Level 3.9mmol/L (3.5-5.1) Chloride Level 104mmol/L (98-107) Carbon Dioxide Level 28mmol/L (21-32) Anion Gap 6 (6-14) Blood Urea Nitrogen 14mg/dL (8-26) Creatinine 1.2mg/dL (0.7-1.3) Estimated GFR (Cockcroft-Gault) 58.3 BUN/Creatinine Ratio 12 (6-20) Glucose Level 96mg/dL (70-99) Calcium Level 8.3mg/dL (8.5-10.1) Total Bilirubin 0.3mg/dL (0.2-1.0) Aspartate Amino Transf (AST/SGOT) 53U/L (15-37) Alanine Aminotransferase (ALT/SGPT) 38U/L (16-63) Alkaline Phosphatase 119U/L (46-116) Total Protein 5.1g/dL (6.4-8.2) Albumin 1.8g/dL (3.4-5.0) Albumin/Globulin Ratio 0.5 (1.0-1.7) Microbiology 07/15/16 Blood Culture - Final, Complete NO GROWTH AFTER 5 DAYS Medications Current Medications Levofloxacin/ Dextrose 150 ml @ 100 mls/hr 1X ONCE IV Last administered on 20:17; Start 07/15/16 at 16:45; Stop 07/15/16 at 18:14; Status DC Sodium Chloride (Iv Sodium Chloride 0.9% 1000ml Bag) 1,000 ml @ 1,000 mls/hr 1X ONCE IV Last administered on 07/15/16 16:48; Start 07/15/16 at 16:45; Stop 07/15/16 at 17:44; Status DC Vancomycin HCl 1 each 1 each PRN DAILY PRN MC SEE COMMENTS Last administered on 07/17/16 07:40; Start 07/15/16 at 16:45; Stop 07/19/16 at 08:29; Status DC Vancomycin HCl/ Sodium Chloride (Iv Sodium Chloride 0.9% 500ml Bag) 500 ml @ 250 mls/hr 1X ONCE IV Last administered on 07/15/16 17:24; Start 07/15/16 at 17 :00; Stop 07/15/16 at 18:59; Status DC Ondansetron HCl 4 mg 4 mg PRN Q8HRS PRN IV NAUSEA/VOMITING; Start 07/15/16 at 17 :00; Stop 07/16/16 at 10:32; Status DC Sodium Chloride (Iv Sodium Chloride 0.9% 1000ml Bag) 1,000 ml @ 100 mls/hr Q10H IV Last administered on 07/16/16 18:15; Start 07/15/16 at 16:54; Stop at 16:53; Status DC Acetaminophen (Tylenol) 650 mg PRN Q4HRS PRN PO FEVER Last administered on 08:08; Start 07/15/16 at 17:00; Stop 07/16/16 at 10:32; Status DC Albuterol/ Ipratropium 3 ml 3 ml RTQID NEB Last administered on 07/16/16 07:21 ; Start 07/15/16 at 17:00; Stop 07/16/16 at 10:32; Status DC Vancomycin HCl/ Sodium Chloride (Iv Sodium Chloride 0.9% 250ml) 250 ml @ 167 mls/hr Q12H IV Last administered on 07/19/16 05:17; Start 07/16/16 at 06:00; Stop 07/19/16 at 08:29; Status DC Vancomycin HCl 1 each 1X ONCE MC Last administered on 07/17/16 05:30; Start at 05:30; Stop 07/17/16 at 05:31; Status DC Trimethoprim/ Sulfamethoxazole 1 tab 1 tab TID PO Last administered on 07:55; Start 07/16/16 at 10:30 Aztreonam/Sodium Chloride (Azactam/Iv Sodium Chloride 0.9% 50ml) 50 ml @ 100 mls/hr Q6HRS IV Last administered on 07/21/16 06:09; Start 07/16/16 at 12:00 Azithromycin (Zithromax) 500 mg DAILY PO Last administered on 07/19/16 07:57; Start 07/16/16 at 10:30; Stop 07/19/16 at 08:06; Status DC Vancomycin HCl 125 mg [id number] PO Last administered on 07/21/16 07:55; Start 07/16/16 at 10:30 Lactobacillus Acidophilus (Bacid, Majo-Bid) 1 tab TIDWMEALS PO Last administered on 07/21/16 07:55; Start 07/16/16 at 12:00 Ergocalciferol (Vitamin D2) 50,000 unit WEEKLY PO ; Start 07/22/16 at 09:00 Non-Formulary Medication 1 vial PRN QID PRN NEB SHORTNESS OF BREATH; Start 07/16 at 10:30; Stop 07/16/16 at 10:34; Status DC Non-Formulary Medication 1 inh PRN PRN IH SHORTNESS OF BREATH; Start 07/16/16 at 10:30; Stop 07/16/16 at 10:34; Status DC Albuterol/ Ipratropium (Duoneb) 3 ml RTQID NEB Last administered on 07/21/16 07 :20; Start 07/16/16 at 12:00 Acetaminophen (Tylenol) 650 mg PRN Q6HRS PRN PO MILD PAIN / TEMP Last administered on 07/20/16 21:00; Start 07/16/16 at 10:30 Ondansetron HCl (Zofran) 4 mg PRN Q6HRS PRN IV NAUSEA/VOMITING; Start 07/16/16 at 10:30 Budesonide (Pulmicort) 0.5 mg RTBID NEB Last administered on 07/21/16 07:21; Start 07/16/16 at 11:30 Albuterol Sulfate (Ventolin Neb Soln) 2.5 mg PRN QID PRN NEB SHORTNESS OF BREATH Last administered on 07/17/16 00:14; Start 07/16/16 at 10:45 Enoxaparin Sodium (Lovenox 40mg Syringe) 40 mg Q24H SQ Last administered on 07/20 14:02; Start 07/16/16 at 13:00 Oseltamivir Phosphate 75 mg 75 mg BID PO Last administered on 07/18/16 08:40; Start 07/17/16 at 11:00; Stop 07/18/16 at 09:27; Status DC Sodium Chloride (Iv Sodium Chloride 0.9% 1000ml Bag) 1,000 ml @ 75 mls/hr 1X ONCE IV Last administered on 07/18/16 13:00; Start 07/18/16 at 13:00; Stop at 02:19; Status DC Diphenhydramine HCl (Benadryl) 50 mg PRN QHS PRN PO ITCHING Last administered on 07/20/16 21:01; Start 07/19/16 at 01:15 Nystatin 5 ml [id number] Last administered on 07/21/16 07:55; Start 07/19/16 at 09:00 Acetaminophen/ Hydrocodone Bitart (Lortab 5/325) 1 tab PRN Q4HRS PRN PO PAIN MILD TO MOD Last administered on 07/20/16 21:00; Start 07/19/16 at 19:30 Info (Do NOT chart on this entry -- for MONITORING) 1 each PRN DAILY PRN MC SEE COMMENTS; Start 07/20/16 at 13:45; Stop 07/22/16 at 13:44; Status Cancel Active Scripts Active Vitamin D2 (Ergocalciferol (Vitamin D2)) 50,000 Unit Capsule 50,000 Unit PO WEEKLY Reported Albuterol Sulfate Neb Soln (Albuterol Sulfate) 0.63 Mg/3 Ml Vial.neb 1 Vial NEB PRN QID PRN Advair 500-50 Diskus (Fluticasone/Salmeterol) 1 Each Disk.w.dev 1 Inh IH PRN PRN Vitals/I & O Vital Sign - Last 24 Hours 07/20/16 07/20/16 07/20/16 07/20/16 11:59 15:00 16:13 19:20 Temp 98.1 102.0 98.1 102.0 Pulse 69 109 Resp 24 24 B/P 106/64 125/59 Pulse Ox 96 95 96 O2 Delivery Nasal Cannula Nasal Cannula Nasal Cannula Nasal Cannula O2 Flow Rate 2.0 3.0 2.0 3.0 1/01/2707/20/16 07/20/16 07/20/16 20:00 20:54 20:55 21:00 Resp 20 Pulse Ox 97 97 96 O2 Delivery Nasal Cannula Nasal Cannula Nasal Cannula Nasal Cannula O2 Flow Rate 3.0 2.0 2.0 3.0 07/20/16 07/20/16 07/21/16 07/21/16 22:00 23:15 03:10 07:20 Temp 100.2 97.7 100.2 97.7 Pulse 98 92 Resp 18 20 20 B/P 94/44 112/55 Pulse Ox 96 94 97 97 O2 Delivery Nasal Cannula Nasal Cannula Nasal Cannula Nasal Cannula O2 Flow Rate 3.0 3.0 3.0 2.0 07/21/16 07/21/16 07/21/16 07/21/16 07:23 07:40 08:00 10:43 Temp 100.0 98.9 100.0 98.9 Pulse 112 107 Resp 22 22 B/P 132/66 123/60 Pulse Ox 97 98 98 O2 Delivery Nasal Cannula Nasal Cannula Nasal Cannula Nasal Cannula O2 Flow Rate 2.0 3.0 3.0 3.0 Intake and Output 07/20/16 07/20/16 07/21/16 15:00 23:00 07:00 Intake Total 280 ml 100 ml Balance 280 ml 100 ml MICHELE KURTZ MD Jul 21, 2016 11:23
[2016-07-21] MEDS: ENOXAPARIN 40 MG/0.4 ML DISP.SYRIN. SQ SCH (12:10)
--- NOTE | 2016-07-21 15:06 | PDOC ---
PULMONARY PROGRESS NOTES Subjective better today Vitals Vital Signs Date Time Temp Pulse Resp B/P Pulse Ox O2 Delivery O2 Flow Rate FiO2 07/21/16 11:34 96 Nasal Cannula 2.0 07/21/16 10:43 98.9 107 22 123/60 98.9 General: Alert Lungs: Crackles (left basilar crakles., rhonchis) Cardiovascular: S1, S2 Abdomen: Soft, Non-tender Neuro Exam: Alert Extremities: No Edema Skin: Warm Labs Laboratory Tests Test 07/20/16 04:45 07/21/16 06:00 White Blood Count 5.3x10^3/uL (4.0-11.0) 5.5x10^3/uL (4.0-11.0) Red Blood Count 3.31x10^6/uL (4.30-5.70) 3.46x10^6/uL (4.30-5.70) Hemoglobin 9.9g/dL (13.0-17.5) 10.2g/dL (13.0-17.5) Hematocrit 30.2% (39.0-53.0) 30.8% (39.0-53.0) Mean Corpuscular Volume 91fL (79-100) 89fL (79-100) Mean Corpuscular Hemoglobin 30pg (25-35) 29pg (25-35) Mean Corpuscular Hemoglobin Concent 33g/dL (31-37) 33g/dL (31-37) Red Cell Distribution Width 13.9% (11.5-14.5) 13.9% (11.5-14.5) Platelet Count 230x10^3/uL (140-400) 295x10^3/uL (140-400) Neutrophils (%) (Auto) 73% (31-73) 71% (31-73) Lymphocytes (%) (Auto) 13% (24-48) 13% (24-48) Monocytes (%) (Auto) 9% (0-9) 8% (0-9) Eosinophils (%) (Auto) 5% (0-3) 8% (0-3) Basophils (%) (Auto) 1% (0-3) 1% (0-3) Neutrophils # (Auto) 3.9x10^3uL (1.8-7.7) 3.9x10^3uL (1.8-7.7) Lymphocytes # (Auto) 0.7x10^3/uL (1.0-4.8) 0.7x10^3/uL (1.0-4.8) Monocytes # (Auto) 0.5x10^3/uL (0.0-1.1) 0.4x10^3/uL (0.0-1.1) Eosinophils # (Auto) 0.2x10^3/uL (0.0-0.7) 0.4x10^3/uL (0.0-0.7) Basophils # (Auto) 0.0x10^3/uL (0.0-0.2) 0.0x10^3/uL (0.0-0.2) Sodium Level 137mmol/L (136-145) 138mmol/L (136-145) Potassium Level 3.8mmol/L (3.5-5.1) 3.9mmol/L (3.5-5.1) Chloride Level 103mmol/L (98-107) 104mmol/L (98-107) Carbon Dioxide Level 30mmol/L (21-32) 28mmol/L (21-32) Anion Gap 4 (6-14) 6 (6-14) Blood Urea Nitrogen 14mg/dL (8-26) 14mg/dL (8-26) Creatinine 1.2mg/dL (0.7-1.3) 1.2mg/dL (0.7-1.3) Estimated GFR (Cockcroft-Gault) 58.3 58.3 Glucose Level 89mg/dL (70-99) 96mg/dL (70-99) Calcium Level 8.4mg/dL (8.5-10.1) 8.3mg/dL (8.5-10.1) BUN/Creatinine Ratio 12 (6-20) Total Bilirubin 0.3mg/dL (0.2-1.0) Aspartate Amino Transf (AST/SGOT) 53U/L (15-37) Alanine Aminotransferase (ALT/SGPT) 38U/L (16-63) Alkaline Phosphatase 119U/L (46-116) Total Protein 5.1g/dL (6.4-8.2) Albumin 1.8g/dL (3.4-5.0) Albumin/Globulin Ratio 0.5 (1.0-1.7) Laboratory Tests Test 07/21/16 06:00 White Blood Count 5.5x10^3/uL (4.0-11.0) Red Blood Count 3.46x10^6/uL (4.30-5.70) Hemoglobin 10.2g/dL (13.0-17.5) Hematocrit 30.8% (39.0-53.0) Mean Corpuscular Volume 89fL (79-100) Mean Corpuscular Hemoglobin 29pg (25-35) Mean Corpuscular Hemoglobin Concent 33g/dL (31-37) Red Cell Distribution Width 13.9% (11.5-14.5) Platelet Count 295x10^3/uL (140-400) Neutrophils (%) (Auto) 71% (31-73) Lymphocytes (%) (Auto) 13% (24-48) Monocytes (%) (Auto) 8% (0-9) Eosinophils (%) (Auto) 8% (0-3) Basophils (%) (Auto) 1% (0-3) Neutrophils # (Auto) 3.9x10^3uL (1.8-7.7) Lymphocytes # (Auto) 0.7x10^3/uL (1.0-4.8) Monocytes # (Auto) 0.4x10^3/uL (0.0-1.1) Eosinophils # (Auto) 0.4x10^3/uL (0.0-0.7) Basophils # (Auto) 0.0x10^3/uL (0.0-0.2) Sodium Level 138mmol/L (136-145) Potassium Level 3.9mmol/L (3.5-5.1) Chloride Level 104mmol/L (98-107) Carbon Dioxide Level 28mmol/L (21-32) Anion Gap 6 (6-14) Blood Urea Nitrogen 14mg/dL (8-26) Creatinine 1.2mg/dL (0.7-1.3) Estimated GFR (Cockcroft-Gault) 58.3 BUN/Creatinine Ratio 12 (6-20) Glucose Level 96mg/dL (70-99) Calcium Level 8.3mg/dL (8.5-10.1) Total Bilirubin 0.3mg/dL (0.2-1.0) Aspartate Amino Transf (AST/SGOT) 53U/L (15-37) Alanine Aminotransferase (ALT/SGPT) 38U/L (16-63) Alkaline Phosphatase 119U/L (46-116) Total Protein 5.1g/dL (6.4-8.2) Albumin 1.8g/dL (3.4-5.0) Albumin/Globulin Ratio 0.5 (1.0-1.7) Medications Active Scripts Medications Dose Route/Sig Days Date Category Vitamin D2 (Ergocalciferol (Vitamin D2)) 50,000 Unit Capsule 50,000 Unit PO WEEKLY 06/18/16 Rx Albuterol Sulfate Neb Soln (Albuterol Sulfate) 0.63 Mg/3 Ml Vial.neb 1 Vial NEB PRN QID PRN 06/10/16 Reported Advair 500-50 Diskus (Fluticasone/Salmeterol) 1 Each Disk.w.dev 1 Inh IH PRN PRN 06/10/16 Reported Impression . 1. Acute respiratory failure secondary to left lower lobe pneumonia. 2. Left lower lobe pneumonia in a patient with a history of Stenotrophomonas, recently admitted to the hospital, possible gram-positive, gram-negative pneumonia. 3. Acute exacerbation of chronic obstructive pulmonary disease. 4. Mild protein malnutrition, present upon admission. 5. Fever improved 6. C-Diff Plan . IMPROVING antibx per ID [id number] MAUREEN Kyle MD Jul 21, 2016 15:06
[2016-07-21 15:08] VITALS: BP 119/57
[2016-07-21 19:00] VITALS: BP 119/62
[2016-07-21] MEDS: DIPHENHYDRAMINE HCL 25 MG CAPSULE PO PRN (20:39)
[2016-07-21] MEDS: HYDROCODONE/APAP 5/325MG TABLET. PO PRN (20:39)
[2016-07-21 23:00] VITALS: BP 110/53
[2016-07-22] MEDS: AZTREONAM 1 GM in IV NORMAL SALINE 50ML 50 ML IV SCH ×2 (00:50→05:37)
[2016-07-22 03:00] VITALS: BP 118/63
[2016-07-22 04:03] LABS: BASO % 1 % (0-3); EOS % 8 % (0-3); HEMATOCRIT 28.4 % (39.0-53.0); HEMOGLOBIN 9.2 g/dL (13.0-17.5); LYMPH # 0.7 x10^3/uL (1.0-4.8); LYMPH % 13 % (24-48); MEAN CORPUSCULAR HEMOGLOBIN 29 pg (25-35); MEAN CORPUSCULAR HGB CONC 33 g/dL (31-37); MEAN CORPUSCULAR VOLUME 90 fL (79-100); MONO % 11 % (0-9); NEUT % 68 % (31-73); PLATELET COUNT 285 x10^3/uL (140-400); RED BLOOD COUNT 3.16 x10^6/uL (4.30-5.70); RED CELL DISTRIBUTION WIDTH 14.3 % (11.5-14.5); WHITE BLOOD COUNT 5.7 x10^3/uL (4.0-11.0)
[2016-07-22 04:34] LABS: ALBUMIN 1.9 g/dL (3.4-5.0); ALBUMIN/GLOBULIN RATIO 0.6 (1.0-1.7); CALCIUM 8.3 mg/dL (8.5-10.1); CREATININE 1.1 mg/dL (0.7-1.3); GFR 64.4; POTASSIUM 3.8 mmol/L (3.5-5.1); TOTAL BILIRUBIN 0.3 mg/dL (0.2-1.0); TOTAL PROTEIN 5.3 g/dL (6.4-8.2)
[2016-07-22 07:00] VITALS: BP 118/59
[2016-07-22] MEDS: VANCOMYCIN 125 MG/2.5 ML ORAL SOLUTION. PO SCH ×4 (07:49→21:13)
[2016-07-22] MEDS: SMZ/TMP 800/160MG TABLET. PO SCH (07:49)
[2016-07-22] MEDS: LACTOBACILLUS ACIDOPH & BULGAR 1 TABLET. PO SCH ×3 (07:49→17:29)
[2016-07-22] MEDS: NYSTATIN 100,000 UNITS/ML 5 ML ORAL.SUSP. SWSW SCH ×4 (07:49→21:14)
[2016-07-22] MEDS ORDERED: ERGOCALCIFEROL (VITAMIN D2) 50,000 UNIT CAPSULE PO SCH (09:00)
[2016-07-22] MEDS: BUDESONIDE 0.5 MG/2 ML NEBU NEB SCH ×2 (09:01→19:00)
[2016-07-22] MEDS: IPRATRPIUM/ALBUTEROL 0.5/2.5MG 3 ML NEBU. NEB SCH ×4 (09:01→19:00)
--- NOTE | 2016-07-22 09:49 | PDOC ---
PULMONARY PROGRESS NOTES Subjective still cough with white sputum Vitals Vital Signs Date Time Temp Pulse Resp B/P Pulse Ox O2 Delivery O2 Flow Rate FiO2 07/22/16 09:05 93 Nasal Cannula 2.0 07/22/16 07:00 98.1 96 20 118/59 98.1 General: Alert, No acute distress Lungs: Crackles (bases) Cardiovascular: S1, S2 Abdomen: Soft, Non-tender Neuro Exam: Alert Extremities: No Edema Skin: Warm Labs Laboratory Tests Test 07/21/16 06:00 07/22/16 03:25 White Blood Count 5.5x10^3/uL (4.0-11.0) 5.7x10^3/uL (4.0-11.0) Red Blood Count 3.46x10^6/uL (4.30-5.70) 3.16x10^6/uL (4.30-5.70) Hemoglobin 10.2g/dL (13.0-17.5) 9.2g/dL (13.0-17.5) Hematocrit 30.8% (39.0-53.0) 28.4% (39.0-53.0) Mean Corpuscular Volume 89fL (79-100) 90fL (79-100) Mean Corpuscular Hemoglobin 29pg (25-35) 29pg (25-35) Mean Corpuscular Hemoglobin Concent 33g/dL (31-37) 33g/dL (31-37) Red Cell Distribution Width 13.9% (11.5-14.5) 14.3% (11.5-14.5) Platelet Count 295x10^3/uL (140-400) 285x10^3/uL (140-400) Neutrophils (%) (Auto) 71% (31-73) 68% (31-73) Lymphocytes (%) (Auto) 13% (24-48) 13% (24-48) Monocytes (%) (Auto) 8% (0-9) 11% (0-9) Eosinophils (%) (Auto) 8% (0-3) 8% (0-3) Basophils (%) (Auto) 1% (0-3) 1% (0-3) Neutrophils # (Auto) 3.9x10^3uL (1.8-7.7) 3.9x10^3uL (1.8-7.7) Lymphocytes # (Auto) 0.7x10^3/uL (1.0-4.8) 0.7x10^3/uL (1.0-4.8) Monocytes # (Auto) 0.4x10^3/uL (0.0-1.1) 0.6x10^3/uL (0.0-1.1) Eosinophils # (Auto) 0.4x10^3/uL (0.0-0.7) 0.4x10^3/uL (0.0-0.7) Basophils # (Auto) 0.0x10^3/uL (0.0-0.2) 0.0x10^3/uL (0.0-0.2) Sodium Level 138mmol/L (136-145) 139mmol/L (136-145) Potassium Level 3.9mmol/L (3.5-5.1) 3.8mmol/L (3.5-5.1) Chloride Level 104mmol/L (98-107) 103mmol/L (98-107) Carbon Dioxide Level 28mmol/L (21-32) 28mmol/L (21-32) Anion Gap 6 (6-14) 8 (6-14) Blood Urea Nitrogen 14mg/dL (8-26) 17mg/dL (8-26) Creatinine 1.2mg/dL (0.7-1.3) 1.1mg/dL (0.7-1.3) Estimated GFR (Cockcroft-Gault) 58.3 64.4 BUN/Creatinine Ratio 12 (6-20) 15 (6-20) Glucose Level 96mg/dL (70-99) 98mg/dL (70-99) Calcium Level 8.3mg/dL (8.5-10.1) 8.3mg/dL (8.5-10.1) Total Bilirubin 0.3mg/dL (0.2-1.0) 0.3mg/dL (0.2-1.0) Aspartate Amino Transf (AST/SGOT) 53U/L (15-37) 48U/L (15-37) Alanine Aminotransferase (ALT/SGPT) 38U/L (16-63) 44U/L (16-63) Alkaline Phosphatase 119U/L (46-116) 119U/L (46-116) Total Protein 5.1g/dL (6.4-8.2) 5.3g/dL (6.4-8.2) Albumin 1.8g/dL (3.4-5.0) 1.9g/dL (3.4-5.0) Albumin/Globulin Ratio 0.5 (1.0-1.7) 0.6 (1.0-1.7) Laboratory Tests Test 07/22/16 03:25 White Blood Count 5.7x10^3/uL (4.0-11.0) Red Blood Count 3.16x10^6/uL (4.30-5.70) Hemoglobin 9.2g/dL (13.0-17.5) Hematocrit 28.4% (39.0-53.0) Mean Corpuscular Volume 90fL (79-100) Mean Corpuscular Hemoglobin 29pg (25-35) Mean Corpuscular Hemoglobin Concent 33g/dL (31-37) Red Cell Distribution Width 14.3% (11.5-14.5) Platelet Count 285x10^3/uL (140-400) Neutrophils (%) (Auto) 68% (31-73) Lymphocytes (%) (Auto) 13% (24-48) Monocytes (%) (Auto) 11% (0-9) Eosinophils (%) (Auto) 8% (0-3) Basophils (%) (Auto) 1% (0-3) Neutrophils # (Auto) 3.9x10^3uL (1.8-7.7) Lymphocytes # (Auto) 0.7x10^3/uL (1.0-4.8) Monocytes # (Auto) 0.6x10^3/uL (0.0-1.1) Eosinophils # (Auto) 0.4x10^3/uL (0.0-0.7) Basophils # (Auto) 0.0x10^3/uL (0.0-0.2) Sodium Level 139mmol/L (136-145) Potassium Level 3.8mmol/L (3.5-5.1) Chloride Level 103mmol/L (98-107) Carbon Dioxide Level 28mmol/L (21-32) Anion Gap 8 (6-14) Blood Urea Nitrogen 17mg/dL (8-26) Creatinine 1.1mg/dL (0.7-1.3) Estimated GFR (Cockcroft-Gault) 64.4 BUN/Creatinine Ratio 15 (6-20) Glucose Level 98mg/dL (70-99) Calcium Level 8.3mg/dL (8.5-10.1) Total Bilirubin 0.3mg/dL (0.2-1.0) Aspartate Amino Transf (AST/SGOT) 48U/L (15-37) Alanine Aminotransferase (ALT/SGPT) 44U/L (16-63) Alkaline Phosphatase 119U/L (46-116) Total Protein 5.3g/dL (6.4-8.2) Albumin 1.9g/dL (3.4-5.0) Albumin/Globulin Ratio 0.6 (1.0-1.7) Medications Active Scripts Medications Dose Route/Sig Days Date Category Vitamin D2 (Ergocalciferol (Vitamin D2)) 50,000 Unit Capsule 50,000 Unit PO WEEKLY 06/18/16 Rx Albuterol Sulfate Neb Soln (Albuterol Sulfate) 0.63 Mg/3 Ml Vial.neb 1 Vial NEB PRN QID PRN 06/10/16 Reported Advair 500-50 Diskus (Fluticasone/Salmeterol) 1 Each Disk.w.dev 1 Inh IH PRN PRN 06/10/16 Reported Impression . 1. Acute respiratory failure secondary to left lower lobe pneumonia. 2. Left lower lobe pneumonia in a patient with a history of Stenotrophomonas, recently admitted to the hospital, possible gram-positive, gram-negative pneumonia. 3. Acute exacerbation of chronic obstructive pulmonary disease. 4. Mild protein malnutrition, present upon admission. 5. Fever improved 6. C-Diff Plan . IMPROVING SLOWLY antibx per ID 02 nebs consider LTAC eval (Pt is hospitalized every 2 weeks in past two months) HELENA STANFORD MD Jul 22, 2016 09:49
--- NOTE | 2016-07-22 10:06 | PDOC ---
Infectious Disease Note Subjective Subjective feeling ok, no new complaints , cough + ROS ROS GEN: Denies fevers, chills, sweats HEENT: Denies blurred vision, sore throat CV: Denies chest pain GI: Denies n/v/d NEURO: Denies confusion, dizziness MSK: Denies weakness, joint pain/swelling Vital Sign Vital Signs Vital Signs Date Time Temp Pulse Resp B/P Pulse Ox O2 Delivery O2 Flow Rate FiO2 07/22/16 09:05 93 Nasal Cannula 2.0 07/22/16 07:00 98.1 96 20 118/59 98.1 Physical Exam PHYSICAL EXAM GENERAL: NAD, Alert HEENT: PERRL, OC/OP NECK: Supple, no JVD, no LN LUNGS: Clear HEART: S1S2, no gallop, no murmur ABD: Soft, NT, no organomegaly, no rebound EXT: No edema, no cyanosis 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: 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, oriented x 3, no focal neurologic deficit SKIN: No rash IV: ok Labs Lab Laboratory Tests Test 07/22/16 03:25 White Blood Count 5.7x10^3/uL (4.0-11.0) Red Blood Count 3.16x10^6/uL (4.30-5.70) Hemoglobin 9.2g/dL (13.0-17.5) Hematocrit 28.4% (39.0-53.0) Mean Corpuscular Volume 90fL (79-100) Mean Corpuscular Hemoglobin 29pg (25-35) Mean Corpuscular Hemoglobin Concent 33g/dL (31-37) Red Cell Distribution Width 14.3% (11.5-14.5) Platelet Count 285x10^3/uL (140-400) Neutrophils (%) (Auto) 68% (31-73) Lymphocytes (%) (Auto) 13% (24-48) Monocytes (%) (Auto) 11% (0-9) Eosinophils (%) (Auto) 8% (0-3) Basophils (%) (Auto) 1% (0-3) Neutrophils # (Auto) 3.9x10^3uL (1.8-7.7) Lymphocytes # (Auto) 0.7x10^3/uL (1.0-4.8) Monocytes # (Auto) 0.6x10^3/uL (0.0-1.1) Eosinophils # (Auto) 0.4x10^3/uL (0.0-0.7) Basophils # (Auto) 0.0x10^3/uL (0.0-0.2) Sodium Level 139mmol/L (136-145) Potassium Level 3.8mmol/L (3.5-5.1) Chloride Level 103mmol/L (98-107) Carbon Dioxide Level 28mmol/L (21-32) Anion Gap 8 (6-14) Blood Urea Nitrogen 17mg/dL (8-26) Creatinine 1.1mg/dL (0.7-1.3) Estimated GFR (Cockcroft-Gault) 64.4 BUN/Creatinine Ratio 15 (6-20) Glucose Level 98mg/dL (70-99) Calcium Level 8.3mg/dL (8.5-10.1) Total Bilirubin 0.3mg/dL (0.2-1.0) Aspartate Amino Transf (AST/SGOT) 48U/L (15-37) Alanine Aminotransferase (ALT/SGPT) 44U/L (16-63) Alkaline Phosphatase 119U/L (46-116) Total Protein 5.3g/dL (6.4-8.2) Albumin 1.9g/dL (3.4-5.0) Albumin/Globulin Ratio 0.6 (1.0-1.7) Objective Assessment Fever low grade - Influenza neg. C-diff + + C-diff 1/3 Leukocytosis - better Respiratory infection Multiple antibiotic allergies H/o Stenotrophomonas Foot wound - not infected Plan Plan of Care Contact isolation d/c Bactrim/Aztreonam Completed 3-day course of Azithromax Cont po Vanc F/u labs and cults d/c to [facility] ok d/w dr Jessica SAENZ,WANDA Elizabeth MD Jul 22, 2016 10:06
[2016-07-22 11:00] VITALS: BP 118/63
[2016-07-22] MEDS: ENOXAPARIN 40 MG/0.4 ML DISP.SYRIN. SQ SCH (12:02)
[2016-07-22 15:00] VITALS: BP 106/54
--- NOTE | 2016-07-22 15:03 | PDOC ---
PROGRESS NOTES Chief Complaint Chief Complaint pneumonia, 1. HCAP: recurrent vs persistent with recent Stenotrophomonas PNA; . on Bactrim, aztreonam. ID following 2. Sepsis: improving 3. COPD: nebs PRN, O2 4. CHF: chronic diastolic failure 5. C. diff colitis: on PO vanco, lactobacillus 6. Foot wound: improving 7. prophylaxis: lovenox, full code History of Present Illness History of Present Illness Vitals Vitals Vital Signs Date Time Temp Pulse Resp B/P Pulse Ox O2 Delivery O2 Flow Rate FiO2 07/22/16 12:45 Nasal Cannula 2.0 07/22/16 11:00 99.0 104 20 118/63 96 99.0 Physical Exam General: Alert, Oriented X3, Cooperative Heart: Regular rate Lungs: Clear, Crackles (bases) Extremities: No clubbing, No cyanosis Labs LABS Laboratory Tests Test 07/22/16 03:25 White Blood Count 5.7x10^3/uL (4.0-11.0) Red Blood Count 3.16x10^6/uL (4.30-5.70) Hemoglobin 9.2g/dL (13.0-17.5) Hematocrit 28.4% (39.0-53.0) Mean Corpuscular Volume 90fL (79-100) Mean Corpuscular Hemoglobin 29pg (25-35) Mean Corpuscular Hemoglobin Concent 33g/dL (31-37) Red Cell Distribution Width 14.3% (11.5-14.5) Platelet Count 285x10^3/uL (140-400) Neutrophils (%) (Auto) 68% (31-73) Lymphocytes (%) (Auto) 13% (24-48) Monocytes (%) (Auto) 11% (0-9) Eosinophils (%) (Auto) 8% (0-3) Basophils (%) (Auto) 1% (0-3) Neutrophils # (Auto) 3.9x10^3uL (1.8-7.7) Lymphocytes # (Auto) 0.7x10^3/uL (1.0-4.8) Monocytes # (Auto) 0.6x10^3/uL (0.0-1.1) Eosinophils # (Auto) 0.4x10^3/uL (0.0-0.7) Basophils # (Auto) 0.0x10^3/uL (0.0-0.2) Sodium Level 139mmol/L (136-145) Potassium Level 3.8mmol/L (3.5-5.1) Chloride Level 103mmol/L (98-107) Carbon Dioxide Level 28mmol/L (21-32) Anion Gap 8 (6-14) Blood Urea Nitrogen 17mg/dL (8-26) Creatinine 1.1mg/dL (0.7-1.3) Estimated GFR (Cockcroft-Gault) 64.4 BUN/Creatinine Ratio 15 (6-20) Glucose Level 98mg/dL (70-99) Calcium Level 8.3mg/dL (8.5-10.1) Total Bilirubin 0.3mg/dL (0.2-1.0) Aspartate Amino Transf (AST/SGOT) 48U/L (15-37) Alanine Aminotransferase (ALT/SGPT) 44U/L (16-63) Alkaline Phosphatase 119U/L (46-116) Total Protein 5.3g/dL (6.4-8.2) Albumin 1.9g/dL (3.4-5.0) Albumin/Globulin Ratio 0.6 (1.0-1.7) Review of Systems Review of Systems no n.v.d Assessment and Plan Assessmemt and Plan placement pending, may benefit from LTAC, Problems Medical Problems: (1) Diarrhea Status: Acute (2) Hospital-acquired pneumonia Status: Acute Problems: Comment Review of Relevant I have reviewed the following items urban (where applicable) has been applied. Labs Laboratory Tests Test 07/21/16 06:00 07/22/16 03:25 White Blood Count 5.5x10^3/uL (4.0-11.0) 5.7x10^3/uL (4.0-11.0) Red Blood Count 3.46x10^6/uL (4.30-5.70) 3.16x10^6/uL (4.30-5.70) Hemoglobin 10.2g/dL (13.0-17.5) 9.2g/dL (13.0-17.5) Hematocrit 30.8% (39.0-53.0) 28.4% (39.0-53.0) Mean Corpuscular Volume 89fL (79-100) 90fL (79-100) Mean Corpuscular Hemoglobin 29pg (25-35) 29pg (25-35) Mean Corpuscular Hemoglobin Concent 33g/dL (31-37) 33g/dL (31-37) Red Cell Distribution Width 13.9% (11.5-14.5) 14.3% (11.5-14.5) Platelet Count 295x10^3/uL (140-400) 285x10^3/uL (140-400) Neutrophils (%) (Auto) 71% (31-73) 68% (31-73) Lymphocytes (%) (Auto) 13% (24-48) 13% (24-48) Monocytes (%) (Auto) 8% (0-9) 11% (0-9) Eosinophils (%) (Auto) 8% (0-3) 8% (0-3) Basophils (%) (Auto) 1% (0-3) 1% (0-3) Neutrophils # (Auto) 3.9x10^3uL (1.8-7.7) 3.9x10^3uL (1.8-7.7) Lymphocytes # (Auto) 0.7x10^3/uL (1.0-4.8) 0.7x10^3/uL (1.0-4.8) Monocytes # (Auto) 0.4x10^3/uL (0.0-1.1) 0.6x10^3/uL (0.0-1.1) Eosinophils # (Auto) 0.4x10^3/uL (0.0-0.7) 0.4x10^3/uL (0.0-0.7) Basophils # (Auto) 0.0x10^3/uL (0.0-0.2) 0.0x10^3/uL (0.0-0.2) Sodium Level 138mmol/L (136-145) 139mmol/L (136-145) Potassium Level 3.9mmol/L (3.5-5.1) 3.8mmol/L (3.5-5.1) Chloride Level 104mmol/L (98-107) 103mmol/L (98-107) Carbon Dioxide Level 28mmol/L (21-32) 28mmol/L (21-32) Anion Gap 6 (6-14) 8 (6-14) Blood Urea Nitrogen 14mg/dL (8-26) 17mg/dL (8-26) Creatinine 1.2mg/dL (0.7-1.3) 1.1mg/dL (0.7-1.3) Estimated GFR (Cockcroft-Gault) 58.3 64.4 BUN/Creatinine Ratio 12 (6-20) 15 (6-20) Glucose Level 96mg/dL (70-99) 98mg/dL (70-99) Calcium Level 8.3mg/dL (8.5-10.1) 8.3mg/dL (8.5-10.1) Total Bilirubin 0.3mg/dL (0.2-1.0) 0.3mg/dL (0.2-1.0) Aspartate Amino Transf (AST/SGOT) 53U/L (15-37) 48U/L (15-37) Alanine Aminotransferase (ALT/SGPT) 38U/L (16-63) 44U/L (16-63) Alkaline Phosphatase 119U/L (46-116) 119U/L (46-116) Total Protein 5.1g/dL (6.4-8.2) 5.3g/dL (6.4-8.2) Albumin 1.8g/dL (3.4-5.0) 1.9g/dL (3.4-5.0) Albumin/Globulin Ratio 0.5 (1.0-1.7) 0.6 (1.0-1.7) Laboratory Tests Test 07/22/16 03:25 White Blood Count 5.7x10^3/uL (4.0-11.0) Red Blood Count 3.16x10^6/uL (4.30-5.70) Hemoglobin 9.2g/dL (13.0-17.5) Hematocrit 28.4% (39.0-53.0) Mean Corpuscular Volume 90fL (79-100) Mean Corpuscular Hemoglobin 29pg (25-35) Mean Corpuscular Hemoglobin Concent 33g/dL (31-37) Red Cell Distribution Width 14.3% (11.5-14.5) Platelet Count 285x10^3/uL (140-400) Neutrophils (%) (Auto) 68% (31-73) Lymphocytes (%) (Auto) 13% (24-48) Monocytes (%) (Auto) 11% (0-9) Eosinophils (%) (Auto) 8% (0-3) Basophils (%) (Auto) 1% (0-3) Neutrophils # (Auto) 3.9x10^3uL (1.8-7.7) Lymphocytes # (Auto) 0.7x10^3/uL (1.0-4.8) Monocytes # (Auto) 0.6x10^3/uL (0.0-1.1) Eosinophils # (Auto) 0.4x10^3/uL (0.0-0.7) Basophils # (Auto) 0.0x10^3/uL (0.0-0.2) Sodium Level 139mmol/L (136-145) Potassium Level 3.8mmol/L (3.5-5.1) Chloride Level 103mmol/L (98-107) Carbon Dioxide Level 28mmol/L (21-32) Anion Gap 8 (6-14) Blood Urea Nitrogen 17mg/dL (8-26) Creatinine 1.1mg/dL (0.7-1.3) Estimated GFR (Cockcroft-Gault) 64.4 BUN/Creatinine Ratio 15 (6-20) Glucose Level 98mg/dL (70-99) Calcium Level 8.3mg/dL (8.5-10.1) Total Bilirubin 0.3mg/dL (0.2-1.0) Aspartate Amino Transf (AST/SGOT) 48U/L (15-37) Alanine Aminotransferase (ALT/SGPT) 44U/L (16-63) Alkaline Phosphatase 119U/L (46-116) Total Protein 5.3g/dL (6.4-8.2) Albumin 1.9g/dL (3.4-5.0) Albumin/Globulin Ratio 0.6 (1.0-1.7) Microbiology 07/15/16 Blood Culture - Final, Complete NO GROWTH AFTER 5 DAYS Medications Current Medications Levofloxacin/ Dextrose 150 ml @ 100 mls/hr 1X ONCE IV Last administered on 20:17; Start 07/15/16 at 16:45; Stop 07/15/16 at 18:14; Status DC Sodium Chloride (Iv Sodium Chloride 0.9% 1000ml Bag) 1,000 ml @ 1,000 mls/hr 1X ONCE IV Last administered on 07/15/16 16:48; Start 07/15/16 at 16:45; Stop 07/15/16 at 17:44; Status DC Vancomycin HCl 1 each 1 each PRN DAILY PRN MC SEE COMMENTS Last administered on 07/17/16 07:40; Start 07/15/16 at 16:45; Stop 07/19/16 at 08:29; Status DC Vancomycin HCl/ Sodium Chloride (Iv Sodium Chloride 0.9% 500ml Bag) 500 ml @ 250 mls/hr 1X ONCE IV Last administered on 07/15/16 17:24; Start 07/15/16 at 17 :00; Stop 07/15/16 at 18:59; Status DC Ondansetron HCl 4 mg 4 mg PRN Q8HRS PRN IV NAUSEA/VOMITING; Start 07/15/16 at 17 :00; Stop 07/16/16 at 10:32; Status DC Sodium Chloride (Iv Sodium Chloride 0.9% 1000ml Bag) 1,000 ml @ 100 mls/hr Q10H IV Last administered on 07/16/16 18:15; Start 07/15/16 at 16:54; Stop at 16:53; Status DC Acetaminophen (Tylenol) 650 mg PRN Q4HRS PRN PO FEVER Last administered on 08:08; Start 07/15/16 at 17:00; Stop 07/16/16 at 10:32; Status DC Albuterol/ Ipratropium 3 ml 3 ml RTQID NEB Last administered on 07/16/16 07:21 ; Start 07/15/16 at 17:00; Stop 07/16/16 at 10:32; Status DC Vancomycin HCl/ Sodium Chloride (Iv Sodium Chloride 0.9% 250ml) 250 ml @ 167 mls/hr Q12H IV Last administered on 07/19/16 05:17; Start 07/16/16 at 06:00; Stop 07/19/16 at 08:29; Status DC Vancomycin HCl 1 each 1X ONCE MC Last administered on 07/17/16 05:30; Start at 05:30; Stop 07/17/16 at 05:31; Status DC Trimethoprim/ Sulfamethoxazole 1 tab 1 tab TID PO Last administered on 07:49; Start 07/16/16 at 10:30; Stop 07/22/16 at 10:07; Status DC Aztreonam/Sodium Chloride (Azactam/Iv Sodium Chloride 0.9% 50ml) 50 ml @ 100 mls/hr Q6HRS IV Last administered on 07/22/16 05:37; Start 07/16/16 at 12:00; Stop 07/22/16 at 10:07; Status DC Azithromycin (Zithromax) 500 mg DAILY PO Last administered on 07/19/16 07:57; Start 07/16/16 at 10:30; Stop 07/19/16 at 08:06; Status DC Vancomycin HCl 125 mg [id number] PO Last administered on 07/22/16 12:01; Start 07/16/16 at 10:30 Lactobacillus Acidophilus (Bacid, Majo-Bid) 1 tab TIDWMEALS PO Last administered on 07/22/16 12:01; Start 07/16/16 at 12:00 Ergocalciferol (Vitamin D2) 50,000 unit WEEKLY PO Last administered on 07:49; Start 07/22/16 at 09:00 Non-Formulary Medication 1 vial PRN QID PRN NEB SHORTNESS OF BREATH; Start 07/16 at 10:30; Stop 07/16/16 at 10:34; Status DC Non-Formulary Medication 1 inh PRN PRN IH SHORTNESS OF BREATH; Start 07/16/16 at 10:30; Stop 07/16/16 at 10:34; Status DC Albuterol/ Ipratropium (Duoneb) 3 ml RTQID NEB Last administered on 07/22/16 12 :44; Start 07/16/16 at 12:00 Acetaminophen (Tylenol) 650 mg PRN Q6HRS PRN PO MILD PAIN / TEMP Last administered on 07/20/16 21:00; Start 07/16/16 at 10:30 Ondansetron HCl (Zofran) 4 mg PRN Q6HRS PRN IV NAUSEA/VOMITING; Start 07/16/16 at 10:30 Budesonide (Pulmicort) 0.5 mg RTBID NEB Last administered on 07/22/16 09:01; Start 07/16/16 at 11:30 Albuterol Sulfate (Ventolin Neb Soln) 2.5 mg PRN QID PRN NEB SHORTNESS OF BREATH Last administered on 07/17/16 00:14; Start 07/16/16 at 10:45 Enoxaparin Sodium (Lovenox 40mg Syringe) 40 mg Q24H SQ Last administered on 07/22 12:02; Start 07/16/16 at 13:00 Oseltamivir Phosphate 75 mg 75 mg BID PO Last administered on 07/18/16 08:40; Start 07/17/16 at 11:00; Stop 07/18/16 at 09:27; Status DC Sodium Chloride (Iv Sodium Chloride 0.9% 1000ml Bag) 1,000 ml @ 75 mls/hr 1X ONCE IV Last administered on 07/18/16 13:00; Start 07/18/16 at 13:00; Stop at 02:19; Status DC Diphenhydramine HCl (Benadryl) 50 mg PRN QHS PRN PO ITCHING Last administered on 07/21/16 20:39; Start 07/19/16 at 01:15 Nystatin 5 ml [id number] Last administered on 07/22/16 12:02; Start 07/19/16 at 09:00 Acetaminophen/ Hydrocodone Bitart (Lortab 5/325) 1 tab PRN Q4HRS PRN PO PAIN MILD TO MOD Last administered on 07/21/16 20:39; Start 07/19/16 at 19:30 Info (Do NOT chart on this entry -- for MONITORING) 1 each PRN DAILY PRN MC SEE COMMENTS; Start 07/20/16 at 13:45; Stop 07/22/16 at 13:44; Status Cancel Active Scripts Active Vitamin D2 (Ergocalciferol (Vitamin D2)) 50,000 Unit Capsule 50,000 Unit PO WEEKLY Reported Albuterol Sulfate Neb Soln (Albuterol Sulfate) 0.63 Mg/3 Ml Vial.neb 1 Vial NEB PRN QID PRN Advair 500-50 Diskus (Fluticasone/Salmeterol) 1 Each Disk.w.dev 1 Inh IH PRN PRN Vitals/I & O Vital Sign - Last 24 Hours 07/21/16 07/21/16 07/21/16 07/21/16 15:08 15:34 18:15 19:00 Temp 99.9 99.0 99.9 99.0 Pulse 104 112 Resp 22 20 B/P 119/57 119/62 Pulse Ox 96 97 95 92 O2 Delivery Nasal Cannula Nasal Cannula Nasal Cannula Nasal Cannula O2 Flow Rate 3.0 2.0 2.0 3.0 07/21/16 07/21/16 07/21/16 07/21/16 19:42 20:39 21:39 23:00 Temp 98.4 98.4 Pulse 101 Resp 20 20 18 B/P 110/53 Pulse Ox 96 96 96 O2 Delivery Nasal Cannula Nasal Cannula Room Air Nasal Cannula O2 Flow Rate 2.0 3.0 3.0 07/22/16 07/22/16 07/22/16 07/22/16 03:00 07:00 07:52 09:03 Temp 97.9 98.1 97.9 98.1 Pulse 104 96 Resp 18 20 B/P 118/63 118/59 Pulse Ox 97 96 93 O2 Delivery Nasal Cannula Nasal Cannula Nasal Cannula Nasal Cannula O2 Flow Rate 3.0 3.0 3.0 2.0 07/22/16 07/22/16 07/22/16 09:05 11:00 12:45 Temp 99.0 99.0 Pulse 104 Resp 20 B/P 118/63 Pulse Ox 93 96 O2 Delivery Nasal Cannula Nasal Cannula Nasal Cannula O2 Flow Rate 2.0 3.0 2.0 Intake and Output 07/21/16 07/21/16 07/22/16 15:00 23:00 07:00 Intake Total 660 ml 650 ml Balance 660 ml 650 ml SUNNY KING MD Jul 22, 2016 15:03
[2016-07-22 19:52] VITALS: BP 100/61
[2016-07-22] MEDS: HYDROCODONE/APAP 5/325MG TABLET. PO PRN (21:40)
--- NOTE | 2016-07-22 21:55 | RAD ---
PROCEDURE: Right upper extremity venous Doppler ultrasound [07/22/2016]. HISTORY Right arm swelling and redness for 2 days COMPARISON None. TECHNIQUE Real-time grayscale, color flow, and Doppler spectral waveform analysis of the deep veins of the right upper [extremity] is performed. FINDINGS There is a nonocclusive clot in the right basilic vein. This corresponds to the IV site. All visualized the vein segments demonstrate normal compressibility and augmentation and color flow. Color flow seen within calf veins. IMPRESSION No evidence of DVT seen in the right upper extremity Superficial thrombophlebitis seen in the right basilic vein at the elbow. Electronically signed by: Vita Montoya MD (Jul 22, 2016 21:54:55)
[2016-07-22 23:17] VITALS: BP 111/49
[2016-07-23 03:03] VITALS: BP 118/53
[2016-07-23 05:26] LABS: BASO % 1 % (0-3); EOS % 9 % (0-3); HEMATOCRIT 28.8 % (39.0-53.0); HEMOGLOBIN 9.3 g/dL (13.0-17.5); LYMPH # 0.8 x10^3/uL (1.0-4.8); LYMPH % 14 % (24-48); MEAN CORPUSCULAR HEMOGLOBIN 29 pg (25-35); MEAN CORPUSCULAR HGB CONC 33 g/dL (31-37); MEAN CORPUSCULAR VOLUME 90 fL (79-100); MONO % 10 % (0-9); NEUT % 66 % (31-73); PLATELET COUNT 310 x10^3/uL (140-400); RED BLOOD COUNT 3.19 x10^6/uL (4.30-5.70); RED CELL DISTRIBUTION WIDTH 14.3 % (11.5-14.5); WHITE BLOOD COUNT 5.7 x10^3/uL (4.0-11.0)
[2016-07-23 05:49] LABS: ALBUMIN 1.9 g/dL (3.4-5.0); ALBUMIN/GLOBULIN RATIO 0.5 (1.0-1.7); CALCIUM 8.4 mg/dL (8.5-10.1); CREATININE 1.1 mg/dL (0.7-1.3); GFR 64.4; POTASSIUM 3.7 mmol/L (3.5-5.1); TOTAL BILIRUBIN 0.3 mg/dL (0.2-1.0); TOTAL PROTEIN 5.5 g/dL (6.4-8.2)
[2016-07-23 07:00] VITALS: BP 132/74
[2016-07-23] MEDS: IPRATRPIUM/ALBUTEROL 0.5/2.5MG 3 ML NEBU. NEB SCH ×4 (07:20→20:31)
[2016-07-23] MEDS: BUDESONIDE 0.5 MG/2 ML NEBU NEB SCH ×2 (07:20→20:31)
[2016-07-23] MEDS: LACTOBACILLUS ACIDOPH & BULGAR 1 TABLET. PO SCH ×3 (08:54→17:24)
[2016-07-23] MEDS: VANCOMYCIN 125 MG/2.5 ML ORAL SOLUTION. PO SCH ×4 (08:54→20:53)
[2016-07-23] MEDS: NYSTATIN 100,000 UNITS/ML 5 ML ORAL.SUSP. SWSW SCH ×4 (08:54→20:54)
[2016-07-23 10:58] VITALS: BP 137/63
--- NOTE | 2016-07-23 11:51 | PDOC ---
PULMONARY PROGRESS NOTES Subjective feels better Vitals Vital Signs Date Time Temp Pulse Resp B/P Pulse Ox O2 Delivery O2 Flow Rate FiO2 07/23/16 11:10 96 Nasal Cannula 2.0 07/23/16 10:58 97.9 98 18 137/63 97.9 General: Alert, No acute distress Lungs: Other (decrease bs) Cardiovascular: S1, S2 Abdomen: Soft, Non-tender Neuro Exam: Alert Extremities: No Edema Skin: Warm Labs Laboratory Tests Test 07/22/16 03:25 07/23/16 04:20 White Blood Count 5.7x10^3/uL (4.0-11.0) 5.7x10^3/uL (4.0-11.0) Red Blood Count 3.16x10^6/uL (4.30-5.70) 3.19x10^6/uL (4.30-5.70) Hemoglobin 9.2g/dL (13.0-17.5) 9.3g/dL (13.0-17.5) Hematocrit 28.4% (39.0-53.0) 28.8% (39.0-53.0) Mean Corpuscular Volume 90fL (79-100) 90fL (79-100) Mean Corpuscular Hemoglobin 29pg (25-35) 29pg (25-35) Mean Corpuscular Hemoglobin Concent 33g/dL (31-37) 33g/dL (31-37) Red Cell Distribution Width 14.3% (11.5-14.5) 14.3% (11.5-14.5) Platelet Count 285x10^3/uL (140-400) 310x10^3/uL (140-400) Neutrophils (%) (Auto) 68% (31-73) 66% (31-73) Lymphocytes (%) (Auto) 13% (24-48) 14% (24-48) Monocytes (%) (Auto) 11% (0-9) 10% (0-9) Eosinophils (%) (Auto) 8% (0-3) 9% (0-3) Basophils (%) (Auto) 1% (0-3) 1% (0-3) Neutrophils # (Auto) 3.9x10^3uL (1.8-7.7) 3.7x10^3uL (1.8-7.7) Lymphocytes # (Auto) 0.7x10^3/uL (1.0-4.8) 0.8x10^3/uL (1.0-4.8) Monocytes # (Auto) 0.6x10^3/uL (0.0-1.1) 0.6x10^3/uL (0.0-1.1) Eosinophils # (Auto) 0.4x10^3/uL (0.0-0.7) 0.5x10^3/uL (0.0-0.7) Basophils # (Auto) 0.0x10^3/uL (0.0-0.2) 0.0x10^3/uL (0.0-0.2) Sodium Level 139mmol/L (136-145) 138mmol/L (136-145) Potassium Level 3.8mmol/L (3.5-5.1) 3.7mmol/L (3.5-5.1) Chloride Level 103mmol/L (98-107) 102mmol/L (98-107) Carbon Dioxide Level 28mmol/L (21-32) 33mmol/L (21-32) Anion Gap 8 (6-14) 3 (6-14) Blood Urea Nitrogen 17mg/dL (8-26) 13mg/dL (8-26) Creatinine 1.1mg/dL (0.7-1.3) 1.1mg/dL (0.7-1.3) Estimated GFR (Cockcroft-Gault) 64.4 64.4 BUN/Creatinine Ratio 15 (6-20) 12 (6-20) Glucose Level 98mg/dL (70-99) 87mg/dL (70-99) Calcium Level 8.3mg/dL (8.5-10.1) 8.4mg/dL (8.5-10.1) Total Bilirubin 0.3mg/dL (0.2-1.0) 0.3mg/dL (0.2-1.0) Aspartate Amino Transf (AST/SGOT) 48U/L (15-37) 41U/L (15-37) Alanine Aminotransferase (ALT/SGPT) 44U/L (16-63) 42U/L (16-63) Alkaline Phosphatase 119U/L (46-116) 131U/L (46-116) Total Protein 5.3g/dL (6.4-8.2) 5.5g/dL (6.4-8.2) Albumin 1.9g/dL (3.4-5.0) 1.9g/dL (3.4-5.0) Albumin/Globulin Ratio 0.6 (1.0-1.7) 0.5 (1.0-1.7) Laboratory Tests Test 07/23/16 04:20 White Blood Count 5.7x10^3/uL (4.0-11.0) Red Blood Count 3.19x10^6/uL (4.30-5.70) Hemoglobin 9.3g/dL (13.0-17.5) Hematocrit 28.8% (39.0-53.0) Mean Corpuscular Volume 90fL (79-100) Mean Corpuscular Hemoglobin 29pg (25-35) Mean Corpuscular Hemoglobin Concent 33g/dL (31-37) Red Cell Distribution Width 14.3% (11.5-14.5) Platelet Count 310x10^3/uL (140-400) Neutrophils (%) (Auto) 66% (31-73) Lymphocytes (%) (Auto) 14% (24-48) Monocytes (%) (Auto) 10% (0-9) Eosinophils (%) (Auto) 9% (0-3) Basophils (%) (Auto) 1% (0-3) Neutrophils # (Auto) 3.7x10^3uL (1.8-7.7) Lymphocytes # (Auto) 0.8x10^3/uL (1.0-4.8) Monocytes # (Auto) 0.6x10^3/uL (0.0-1.1) Eosinophils # (Auto) 0.5x10^3/uL (0.0-0.7) Basophils # (Auto) 0.0x10^3/uL (0.0-0.2) Sodium Level 138mmol/L (136-145) Potassium Level 3.7mmol/L (3.5-5.1) Chloride Level 102mmol/L (98-107) Carbon Dioxide Level 33mmol/L (21-32) Anion Gap 3 (6-14) Blood Urea Nitrogen 13mg/dL (8-26) Creatinine 1.1mg/dL (0.7-1.3) Estimated GFR (Cockcroft-Gault) 64.4 BUN/Creatinine Ratio 12 (6-20) Glucose Level 87mg/dL (70-99) Calcium Level 8.4mg/dL (8.5-10.1) Total Bilirubin 0.3mg/dL (0.2-1.0) Aspartate Amino Transf (AST/SGOT) 41U/L (15-37) Alanine Aminotransferase (ALT/SGPT) 42U/L (16-63) Alkaline Phosphatase 131U/L (46-116) Total Protein 5.5g/dL (6.4-8.2) Albumin 1.9g/dL (3.4-5.0) Albumin/Globulin Ratio 0.5 (1.0-1.7) Medications Active Scripts Medications Dose Route/Sig Days Date Category Vitamin D2 (Ergocalciferol (Vitamin D2)) 50,000 Unit Capsule 50,000 Unit PO WEEKLY 06/18/16 Rx Albuterol Sulfate Neb Soln (Albuterol Sulfate) 0.63 Mg/3 Ml Vial.neb 1 Vial NEB PRN QID PRN 06/10/16 Reported Advair 500-50 Diskus (Fluticasone/Salmeterol) 1 Each Disk.w.dev 1 Inh IH PRN PRN 06/10/16 Reported Impression . 1. Acute respiratory failure secondary to left lower lobe pneumonia. 2. Left lower lobe pneumonia in a patient with a history of Stenotrophomonas, recently admitted to the hospital, possible gram-positive, gram-negative pneumonia. 3. Acute exacerbation of chronic obstructive pulmonary disease. 4. Mild protein malnutrition, present upon admission. 5. Fever improved 6. C-Diff Plan . IMPROVING SLOWLY antibx per ID 02 nebs consider LTAC/ skill eval (Pt is hospitalized every 2 weeks in past two months) HELENA STANFORD MD Jul 23, 2016 11:51
--- NOTE | 2016-07-23 11:56 | PDOC ---
Infectious Disease Note Subjective Subjective feeling ok, no new complaints , cough + ROS ROS GEN: Denies fevers, chills, sweats HEENT: Denies blurred vision, sore throat CV: Denies chest pain RESP: Denies shortness of air, cough GI: Denies n/v/d NEURO: Denies confusion, dizziness MSK: Denies weakness, joint pain/swelling Vital Sign Vital Signs Vital Signs Date Time Temp Pulse Resp B/P Pulse Ox O2 Delivery O2 Flow Rate FiO2 07/23/16 11:10 96 Nasal Cannula 2.0 07/23/16 10:58 97.9 98 18 137/63 97.9 Physical Exam PHYSICAL EXAM GENERAL: NAD, Alert HEENT: PERRL, OC/OP NECK: Supple, no JVD, no LN LUNGS: Clear HEART: S1S2, no gallop, no murmur ABD: Soft, NT, no organomegaly, no rebound EXT: No edema, no cyanosis ALLERGIST IMMUNOLOGIST: Alert, oriented x 3, no focal neurologic deficit SKIN: No rash IV: ok Labs Lab Laboratory Tests Test 07/23/16 04:20 White Blood Count 5.7x10^3/uL (4.0-11.0) Red Blood Count 3.19x10^6/uL (4.30-5.70) Hemoglobin 9.3g/dL (13.0-17.5) Hematocrit 28.8% (39.0-53.0) Mean Corpuscular Volume 90fL (79-100) Mean Corpuscular Hemoglobin 29pg (25-35) Mean Corpuscular Hemoglobin Concent 33g/dL (31-37) Red Cell Distribution Width 14.3% (11.5-14.5) Platelet Count 310x10^3/uL (140-400) Neutrophils (%) (Auto) 66% (31-73) Lymphocytes (%) (Auto) 14% (24-48) Monocytes (%) (Auto) 10% (0-9) Eosinophils (%) (Auto) 9% (0-3) Basophils (%) (Auto) 1% (0-3) Neutrophils # (Auto) 3.7x10^3uL (1.8-7.7) Lymphocytes # (Auto) 0.8x10^3/uL (1.0-4.8) Monocytes # (Auto) 0.6x10^3/uL (0.0-1.1) Eosinophils # (Auto) 0.5x10^3/uL (0.0-0.7) Basophils # (Auto) 0.0x10^3/uL (0.0-0.2) Sodium Level 138mmol/L (136-145) Potassium Level 3.7mmol/L (3.5-5.1) Chloride Level 102mmol/L (98-107) Carbon Dioxide Level 33mmol/L (21-32) Anion Gap 3 (6-14) Blood Urea Nitrogen 13mg/dL (8-26) Creatinine 1.1mg/dL (0.7-1.3) Estimated GFR (Cockcroft-Gault) 64.4 BUN/Creatinine Ratio 12 (6-20) Glucose Level 87mg/dL (70-99) Calcium Level 8.4mg/dL (8.5-10.1) Total Bilirubin 0.3mg/dL (0.2-1.0) Aspartate Amino Transf (AST/SGOT) 41U/L (15-37) Alanine Aminotransferase (ALT/SGPT) 42U/L (16-63) Alkaline Phosphatase 131U/L (46-116) Total Protein 5.5g/dL (6.4-8.2) Albumin 1.9g/dL (3.4-5.0) Albumin/Globulin Ratio 0.5 (1.0-1.7) Objective Assessment Fever low grade - Influenza neg. C-diff + + C-diff 1/3 Leukocytosis - better Respiratory infection Multiple antibiotic allergies H/o Stenotrophomonas Foot wound - not infected Plan Plan of Care Cont po Vanc F/u labs and cults d/c to [facility] ok d/w dr Jessica SAENZ,WANDA Elizabeth MD Jul 23, 2016 11:56
[2016-07-23] MEDS: ENOXAPARIN 40 MG/0.4 ML DISP.SYRIN. SQ SCH (12:57)
--- NOTE | 2016-07-23 13:00 | PDOC ---
PROGRESS NOTES Chief Complaint Chief Complaint pneumonia, 1. HCAP: recurrent vs persistent with recent Stenotrophomonas PNA; . on Bactrim, aztreonam. ID following 2. Sepsis: improving 3. COPD: nebs PRN, O2 4. CHF: chronic diastolic failure 5. C. diff colitis: on PO vanco, lactobacillus 6. Foot wound: improving 7. prophylaxis: lovenox, full code History of Present Illness History of Present Illness RR still high, still weak and coughing feels better needs SNU Vitals Vitals Vital Signs Date Time Temp Pulse Resp B/P Pulse Ox O2 Delivery O2 Flow Rate FiO2 07/23/16 11:10 96 Nasal Cannula 2.0 07/23/16 10:58 97.9 98 18 137/63 97.9 Physical Exam General: Alert, Oriented X3, Cooperative Heart: Regular rate Lungs: Clear, Other (decrease bs) Extremities: No clubbing, No cyanosis Labs LABS Laboratory Tests Test 07/23/16 04:20 White Blood Count 5.7x10^3/uL (4.0-11.0) Red Blood Count 3.19x10^6/uL (4.30-5.70) Hemoglobin 9.3g/dL (13.0-17.5) Hematocrit 28.8% (39.0-53.0) Mean Corpuscular Volume 90fL (79-100) Mean Corpuscular Hemoglobin 29pg (25-35) Mean Corpuscular Hemoglobin Concent 33g/dL (31-37) Red Cell Distribution Width 14.3% (11.5-14.5) Platelet Count 310x10^3/uL (140-400) Neutrophils (%) (Auto) 66% (31-73) Lymphocytes (%) (Auto) 14% (24-48) Monocytes (%) (Auto) 10% (0-9) Eosinophils (%) (Auto) 9% (0-3) Basophils (%) (Auto) 1% (0-3) Neutrophils # (Auto) 3.7x10^3uL (1.8-7.7) Lymphocytes # (Auto) 0.8x10^3/uL (1.0-4.8) Monocytes # (Auto) 0.6x10^3/uL (0.0-1.1) Eosinophils # (Auto) 0.5x10^3/uL (0.0-0.7) Basophils # (Auto) 0.0x10^3/uL (0.0-0.2) Sodium Level 138mmol/L (136-145) Potassium Level 3.7mmol/L (3.5-5.1) Chloride Level 102mmol/L (98-107) Carbon Dioxide Level 33mmol/L (21-32) Anion Gap 3 (6-14) Blood Urea Nitrogen 13mg/dL (8-26) Creatinine 1.1mg/dL (0.7-1.3) Estimated GFR (Cockcroft-Gault) 64.4 BUN/Creatinine Ratio 12 (6-20) Glucose Level 87mg/dL (70-99) Calcium Level 8.4mg/dL (8.5-10.1) Total Bilirubin 0.3mg/dL (0.2-1.0) Aspartate Amino Transf (AST/SGOT) 41U/L (15-37) Alanine Aminotransferase (ALT/SGPT) 42U/L (16-63) Alkaline Phosphatase 131U/L (46-116) Total Protein 5.5g/dL (6.4-8.2) Albumin 1.9g/dL (3.4-5.0) Albumin/Globulin Ratio 0.5 (1.0-1.7) Review of Systems Review of Systems dyspnea cough and weakness Assessment and Plan Assessmemt and Plan DC to SNU when avail Problems Medical Problems: (1) Diarrhea Status: Acute (2) Hospital-acquired pneumonia Status: Acute Problems: Comment Review of Relevant I have reviewed the following items urban (where applicable) has been applied. Labs Laboratory Tests Test 07/22/16 03:25 07/23/16 04:20 White Blood Count 5.7x10^3/uL (4.0-11.0) 5.7x10^3/uL (4.0-11.0) Red Blood Count 3.16x10^6/uL (4.30-5.70) 3.19x10^6/uL (4.30-5.70) Hemoglobin 9.2g/dL (13.0-17.5) 9.3g/dL (13.0-17.5) Hematocrit 28.4% (39.0-53.0) 28.8% (39.0-53.0) Mean Corpuscular Volume 90fL (79-100) 90fL (79-100) Mean Corpuscular Hemoglobin 29pg (25-35) 29pg (25-35) Mean Corpuscular Hemoglobin Concent 33g/dL (31-37) 33g/dL (31-37) Red Cell Distribution Width 14.3% (11.5-14.5) 14.3% (11.5-14.5) Platelet Count 285x10^3/uL (140-400) 310x10^3/uL (140-400) Neutrophils (%) (Auto) 68% (31-73) 66% (31-73) Lymphocytes (%) (Auto) 13% (24-48) 14% (24-48) Monocytes (%) (Auto) 11% (0-9) 10% (0-9) Eosinophils (%) (Auto) 8% (0-3) 9% (0-3) Basophils (%) (Auto) 1% (0-3) 1% (0-3) Neutrophils # (Auto) 3.9x10^3uL (1.8-7.7) 3.7x10^3uL (1.8-7.7) Lymphocytes # (Auto) 0.7x10^3/uL (1.0-4.8) 0.8x10^3/uL (1.0-4.8) Monocytes # (Auto) 0.6x10^3/uL (0.0-1.1) 0.6x10^3/uL (0.0-1.1) Eosinophils # (Auto) 0.4x10^3/uL (0.0-0.7) 0.5x10^3/uL (0.0-0.7) Basophils # (Auto) 0.0x10^3/uL (0.0-0.2) 0.0x10^3/uL (0.0-0.2) Sodium Level 139mmol/L (136-145) 138mmol/L (136-145) Potassium Level 3.8mmol/L (3.5-5.1) 3.7mmol/L (3.5-5.1) Chloride Level 103mmol/L (98-107) 102mmol/L (98-107) Carbon Dioxide Level 28mmol/L (21-32) 33mmol/L (21-32) Anion Gap 8 (6-14) 3 (6-14) Blood Urea Nitrogen 17mg/dL (8-26) 13mg/dL (8-26) Creatinine 1.1mg/dL (0.7-1.3) 1.1mg/dL (0.7-1.3) Estimated GFR (Cockcroft-Gault) 64.4 64.4 BUN/Creatinine Ratio 15 (6-20) 12 (6-20) Glucose Level 98mg/dL (70-99) 87mg/dL (70-99) Calcium Level 8.3mg/dL (8.5-10.1) 8.4mg/dL (8.5-10.1) Total Bilirubin 0.3mg/dL (0.2-1.0) 0.3mg/dL (0.2-1.0) Aspartate Amino Transf (AST/SGOT) 48U/L (15-37) 41U/L (15-37) Alanine Aminotransferase (ALT/SGPT) 44U/L (16-63) 42U/L (16-63) Alkaline Phosphatase 119U/L (46-116) 131U/L (46-116) Total Protein 5.3g/dL (6.4-8.2) 5.5g/dL (6.4-8.2) Albumin 1.9g/dL (3.4-5.0) 1.9g/dL (3.4-5.0) Albumin/Globulin Ratio 0.6 (1.0-1.7) 0.5 (1.0-1.7) Laboratory Tests Test 07/23/16 04:20 White Blood Count 5.7x10^3/uL (4.0-11.0) Red Blood Count 3.19x10^6/uL (4.30-5.70) Hemoglobin 9.3g/dL (13.0-17.5) Hematocrit 28.8% (39.0-53.0) Mean Corpuscular Volume 90fL (79-100) Mean Corpuscular Hemoglobin 29pg (25-35) Mean Corpuscular Hemoglobin Concent 33g/dL (31-37) Red Cell Distribution Width 14.3% (11.5-14.5) Platelet Count 310x10^3/uL (140-400) Neutrophils (%) (Auto) 66% (31-73) Lymphocytes (%) (Auto) 14% (24-48) Monocytes (%) (Auto) 10% (0-9) Eosinophils (%) (Auto) 9% (0-3) Basophils (%) (Auto) 1% (0-3) Neutrophils # (Auto) 3.7x10^3uL (1.8-7.7) Lymphocytes # (Auto) 0.8x10^3/uL (1.0-4.8) Monocytes # (Auto) 0.6x10^3/uL (0.0-1.1) Eosinophils # (Auto) 0.5x10^3/uL (0.0-0.7) Basophils # (Auto) 0.0x10^3/uL (0.0-0.2) Sodium Level 138mmol/L (136-145) Potassium Level 3.7mmol/L (3.5-5.1) Chloride Level 102mmol/L (98-107) Carbon Dioxide Level 33mmol/L (21-32) Anion Gap 3 (6-14) Blood Urea Nitrogen 13mg/dL (8-26) Creatinine 1.1mg/dL (0.7-1.3) Estimated GFR (Cockcroft-Gault) 64.4 BUN/Creatinine Ratio 12 (6-20) Glucose Level 87mg/dL (70-99) Calcium Level 8.4mg/dL (8.5-10.1) Total Bilirubin 0.3mg/dL (0.2-1.0) Aspartate Amino Transf (AST/SGOT) 41U/L (15-37) Alanine Aminotransferase (ALT/SGPT) 42U/L (16-63) Alkaline Phosphatase 131U/L (46-116) Total Protein 5.5g/dL (6.4-8.2) Albumin 1.9g/dL (3.4-5.0) Albumin/Globulin Ratio 0.5 (1.0-1.7) Microbiology 07/15/16 Blood Culture - Final, Complete NO GROWTH AFTER 5 DAYS Medications Current Medications Levofloxacin/ Dextrose 150 ml @ 100 mls/hr 1X ONCE IV Last administered on 20:17; Start 07/15/16 at 16:45; Stop 07/15/16 at 18:14; Status DC Sodium Chloride (Iv Sodium Chloride 0.9% 1000ml Bag) 1,000 ml @ 1,000 mls/hr 1X ONCE IV Last administered on 07/15/16 16:48; Start 07/15/16 at 16:45; Stop 07/15/16 at 17:44; Status DC Vancomycin HCl 1 each 1 each PRN DAILY PRN MC SEE COMMENTS Last administered on 07/17/16 07:40; Start 07/15/16 at 16:45; Stop 07/19/16 at 08:29; Status DC Vancomycin HCl/ Sodium Chloride (Iv Sodium Chloride 0.9% 500ml Bag) 500 ml @ 250 mls/hr 1X ONCE IV Last administered on 07/15/16 17:24; Start 07/15/16 at 17 :00; Stop 07/15/16 at 18:59; Status DC Ondansetron HCl 4 mg 4 mg PRN Q8HRS PRN IV NAUSEA/VOMITING; Start 07/15/16 at 17 :00; Stop 07/16/16 at 10:32; Status DC Sodium Chloride (Iv Sodium Chloride 0.9% 1000ml Bag) 1,000 ml @ 100 mls/hr Q10H IV Last administered on 07/16/16 18:15; Start 07/15/16 at 16:54; Stop at 16:53; Status DC Acetaminophen (Tylenol) 650 mg PRN Q4HRS PRN PO FEVER Last administered on 08:08; Start 07/15/16 at 17:00; Stop 07/16/16 at 10:32; Status DC Albuterol/ Ipratropium 3 ml 3 ml RTQID NEB Last administered on 07/16/16 07:21 ; Start 07/15/16 at 17:00; Stop 07/16/16 at 10:32; Status DC Vancomycin HCl/ Sodium Chloride (Iv Sodium Chloride 0.9% 250ml) 250 ml @ 167 mls/hr Q12H IV Last administered on 07/19/16 05:17; Start 07/16/16 at 06:00; Stop 07/19/16 at 08:29; Status DC Vancomycin HCl 1 each 1X ONCE MC Last administered on 07/17/16 05:30; Start at 05:30; Stop 07/17/16 at 05:31; Status DC Trimethoprim/ Sulfamethoxazole 1 tab 1 tab TID PO Last administered on 07:49; Start 07/16/16 at 10:30; Stop 07/22/16 at 10:07; Status DC Aztreonam/Sodium Chloride (Azactam/Iv Sodium Chloride 0.9% 50ml) 50 ml @ 100 mls/hr Q6HRS IV Last administered on 07/22/16 05:37; Start 07/16/16 at 12:00; Stop 07/22/16 at 10:07; Status DC Azithromycin (Zithromax) 500 mg DAILY PO Last administered on 07/19/16 07:57; Start 07/16/16 at 10:30; Stop 07/19/16 at 08:06; Status DC Vancomycin HCl 125 mg [id number] PO Last administered on 07/23/16 12:56; Start at 10:30 Lactobacillus Acidophilus (Bacid, Majo-Bid) 1 tab TIDWMEALS PO Last administered on 07/23/16 12:56; Start 07/16/16 at 12:00 Ergocalciferol (Vitamin D2) 50,000 unit WEEKLY PO Last administered on 07:49; Start 07/22/16 at 09:00 Non-Formulary Medication 1 vial PRN QID PRN NEB SHORTNESS OF BREATH; Start 07/16 at 10:30; Stop 07/16/16 at 10:34; Status DC Non-Formulary Medication 1 inh PRN PRN IH SHORTNESS OF BREATH; Start 07/16/16 at 10:30; Stop 07/16/16 at 10:34; Status DC Albuterol/ Ipratropium (Duoneb) 3 ml RTQID NEB Last administered on 07/23/16 11:10; Start 07/16/16 at 12:00 Acetaminophen (Tylenol) 650 mg PRN Q6HRS PRN PO MILD PAIN / TEMP Last administered on 07/20/16 21:00; Start 07/16/16 at 10:30 Ondansetron HCl (Zofran) 4 mg PRN Q6HRS PRN IV NAUSEA/VOMITING; Start 07/16/16 at 10:30 Budesonide (Pulmicort) 0.5 mg RTBID NEB Last administered on 07/23/16 07:20; Start 07/16/16 at 11:30 Albuterol Sulfate (Ventolin Neb Soln) 2.5 mg PRN QID PRN NEB SHORTNESS OF BREATH Last administered on 07/17/16 00:14; Start 07/16/16 at 10:45 Enoxaparin Sodium (Lovenox 40mg Syringe) 40 mg Q24H SQ Last administered on 12:57; Start 07/16/16 at 13:00 Oseltamivir Phosphate 75 mg 75 mg BID PO Last administered on 07/18/16 08:40; Start 07/17/16 at 11:00; Stop 07/18/16 at 09:27; Status DC Sodium Chloride (Iv Sodium Chloride 0.9% 1000ml Bag) 1,000 ml @ 75 mls/hr 1X ONCE IV Last administered on 07/18/16 13:00; Start 07/18/16 at 13:00; Stop at 02:19; Status DC Diphenhydramine HCl (Benadryl) 50 mg PRN QHS PRN PO ITCHING Last administered on 07/21/16 20:39; Start 07/19/16 at 01:15 Nystatin 5 ml [id number] Last administered on 07/22/16 21:14; Start 07/19/16 at 09:00 Acetaminophen/ Hydrocodone Bitart (Lortab 5/325) 1 tab PRN Q4HRS PRN PO PAIN MILD TO MOD Last administered on 07/22/16 21:40; Start 07/19/16 at 19:30 Info (Do NOT chart on this entry -- for MONITORING) 1 each PRN DAILY PRN MC SEE COMMENTS; Start 07/20/16 at 13:45; Stop 07/22/16 at 13:44; Status Cancel Active Scripts Active Vitamin D2 (Ergocalciferol (Vitamin D2)) 50,000 Unit Capsule 50,000 Unit PO WEEKLY Reported Albuterol Sulfate Neb Soln (Albuterol Sulfate) 0.63 Mg/3 Ml Vial.neb 1 Vial NEB PRN QID PRN Advair 500-50 Diskus (Fluticasone/Salmeterol) 1 Each Disk.w.dev 1 Inh IH PRN PRN Vitals/I & O Vital Sign - Last 24 Hours 07/22/16 07/22/16 07/22/16 07/22/16 15:00 16:42 19:00 19:52 Temp 98.1 99.3 98.1 99.3 Pulse 104 104 Resp B/P 106/54 100/61 Pulse Ox 98 96 96 O2 Delivery Nasal Cannula Nasal Cannula Nasal Cannula Nasal Cannula O2 Flow Rate 3.0 2.0 2.0 3.0 07/22/16 07/22/16 07/22/16 07/22/16 20:00 21:40 22:40 23:17 Temp 98.8 98.8 Pulse 109 Resp 18 B/P 111/49 Pulse Ox 93 O2 Delivery Nasal Cannula Nasal Cannula Nasal Cannula Nasal Cannula O2 Flow Rate 3.0 3.0 3.0 3.0 07/23/16 07/23/16 07/23/16 07/23/16 03:03 07:00 07:21 10:58 Temp 98.0 97.9 97.9 98.0 97.9 97.9 Pulse 102 103 98 Resp 18 18 B/P 118/53 132/74 137/63 Pulse Ox 94 94 96 O2 Delivery Nasal Cannula Nasal Cannula Nasal Cannula Nasal Cannula O2 Flow Rate 3.0 3.0 2.0 3.0 07/23/16 11:10 Pulse Ox 96 O2 Delivery Nasal Cannula O2 Flow Rate 2.0 Intake and Output 07/22/16 07/22/16 07/23/16 15:00 23:00 07:00 Intake Total 650 ml 350 ml Balance 650 ml 350 ml SUNNY KING MD Jul 23, 2016 13:00
[2016-07-23 15:00] VITALS: BP 135/72
[2016-07-23 19:00] VITALS: BP 133/56
[2016-07-23] MEDS: HYDROCODONE/APAP 5/325MG TABLET. PO PRN (22:15)
[2016-07-23 23:28] VITALS: BP 129/64
[2016-07-24 03:19] VITALS: BP 148/79
[2016-07-24 07:45] VITALS: BP 127/64
[2016-07-24] MEDS: BUDESONIDE 0.5 MG/2 ML NEBU NEB SCH (08:08)
[2016-07-24] MEDS: IPRATRPIUM/ALBUTEROL 0.5/2.5MG 3 ML NEBU. NEB SCH ×2 (08:08→11:20)
[2016-07-24] MEDS ORDERED: Vancomycin Hcl PO (08:26)
[2016-07-24] MEDS ORDERED: HYDR-2666 PO (08:26)
[2016-07-24] MEDS ORDERED: ACID1TAB14 PO (08:26)
[2016-07-24] MEDS ORDERED: NYST1000 SWSW (08:26)
--- NOTE | 2016-07-24 08:32 | PDOC ---
PROGRESS NOTES Chief Complaint Chief Complaint pneumonia, 1. HCAP: recurrent vs persistent with recent Stenotrophomonas PNA; . . ID following 2. Sepsis: improving 3. COPD: nebs PRN, O2 4. CHF: chronic diastolic failure 5. C. diff colitis: on PO vanco, lactobacillus 6. Foot wound: improving 7. prophylaxis: lovenox, full code History of Present Illness History of Present Illness RR still high, still weak and coughing feels better needs SNU Vitals Vitals Vital Signs Date Time Temp Pulse Resp B/P Pulse Ox O2 Delivery O2 Flow Rate FiO2 07/24/16 08:08 96 Nasal Cannula 2.0 07/24/16 07:45 97.7 97 18 127/64 97.7 Physical Exam General: Alert, Oriented X3, Cooperative Heart: Regular rate Lungs: Clear, Other (decrease bs) Extremities: No clubbing, No cyanosis Review of Systems Review of Systems cough is better still weakness stools are loose Assessment and Plan Assessmemt and Plan arrange DC to SNU ongoing care, resp therapy Problems Medical Problems: (1) Diarrhea Status: Acute (2) Hospital-acquired pneumonia Status: Acute Problems: Comment Review of Relevant I have reviewed the following items urban (where applicable) has been applied. Labs Laboratory Tests Test 07/23/16 04:20 White Blood Count 5.7x10^3/uL (4.0-11.0) Red Blood Count 3.19x10^6/uL (4.30-5.70) Hemoglobin 9.3g/dL (13.0-17.5) Hematocrit 28.8% (39.0-53.0) Mean Corpuscular Volume 90fL (79-100) Mean Corpuscular Hemoglobin 29pg (25-35) Mean Corpuscular Hemoglobin Concent 33g/dL (31-37) Red Cell Distribution Width 14.3% (11.5-14.5) Platelet Count 310x10^3/uL (140-400) Neutrophils (%) (Auto) 66% (31-73) Lymphocytes (%) (Auto) 14% (24-48) Monocytes (%) (Auto) 10% (0-9) Eosinophils (%) (Auto) 9% (0-3) Basophils (%) (Auto) 1% (0-3) Neutrophils # (Auto) 3.7x10^3uL (1.8-7.7) Lymphocytes # (Auto) 0.8x10^3/uL (1.0-4.8) Monocytes # (Auto) 0.6x10^3/uL (0.0-1.1) Eosinophils # (Auto) 0.5x10^3/uL (0.0-0.7) Basophils # (Auto) 0.0x10^3/uL (0.0-0.2) Sodium Level 138mmol/L (136-145) Potassium Level 3.7mmol/L (3.5-5.1) Chloride Level 102mmol/L (98-107) Carbon Dioxide Level 33mmol/L (21-32) Anion Gap 3 (6-14) Blood Urea Nitrogen 13mg/dL (8-26) Creatinine 1.1mg/dL (0.7-1.3) Estimated GFR (Cockcroft-Gault) 64.4 BUN/Creatinine Ratio 12 (6-20) Glucose Level 87mg/dL (70-99) Calcium Level 8.4mg/dL (8.5-10.1) Total Bilirubin 0.3mg/dL (0.2-1.0) Aspartate Amino Transf (AST/SGOT) 41U/L (15-37) Alanine Aminotransferase (ALT/SGPT) 42U/L (16-63) Alkaline Phosphatase 131U/L (46-116) Total Protein 5.5g/dL (6.4-8.2) Albumin 1.9g/dL (3.4-5.0) Albumin/Globulin Ratio 0.5 (1.0-1.7) Microbiology 07/15/16 Blood Culture - Final, Complete NO GROWTH AFTER 5 DAYS Medications Current Medications Levofloxacin/ Dextrose 150 ml @ 100 mls/hr 1X ONCE IV Last administered on t 20:17; Start 07/15/16 at 16:45; Stop 07/15/16 at 18:14; Status DC Sodium Chloride (Iv Sodium Chloride 0.9% 1000ml Bag) 1,000 ml @ 1,000 mls/hr 1X ONCE IV Last administered on 07/15/16t 16:48; Start 07/15/16 at 16:45; Stop 07/15/16 at 17:44; Status DC Vancomycin HCl 1 each 1 each PRN DAILY PRN MC SEE COMMENTS Last administered on 07/17/16 07:40; Start 07/15/16 at 16:45; Stop 07/19/16 at 08:29; Status DC Vancomycin HCl/ Sodium Chloride (Iv Sodium Chloride 0.9% 500ml Bag) 500 ml @ 250 mls/hr 1X ONCE IV Last administered on 07/15/16 17:24; Start 07/15/16 at 17 :00; Stop 07/15/16 at 18:59; Status DC Ondansetron HCl 4 mg 4 mg PRN Q8HRS PRN IV NAUSEA/VOMITING; Start 07/15/16 at 17 :00; Stop 07/16/16 at 10:32; Status DC Sodium Chloride (Iv Sodium Chloride 0.9% 1000ml Bag) 1,000 ml @ 100 mls/hr Q10H IV Last administered on 07/16/16 18:15; Start 07/15/16 at 16:54; Stop at 16:53; Status DC Acetaminophen (Tylenol) 650 mg PRN Q4HRS PRN PO FEVER Last administered on 08:08; Start 07/15/16 at 17:00; Stop 07/16/16 at 10:32; Status DC Albuterol/ Ipratropium 3 ml 3 ml RTQID NEB Last administered on 07/16/16 07:21 ; Start 07/15/16 at 17:00; Stop 07/16/16 at 10:32; Status DC Vancomycin HCl/ Sodium Chloride (Iv Sodium Chloride 0.9% 250ml) 250 ml @ 167 mls/hr Q12H IV Last administered on 07/19/16 05:17; Start 07/16/16 at 06:00; Stop 07/19/16 at 08:29; Status DC Vancomycin HCl 1 each 1X ONCE MC Last administered on 07/17/16 05:30; Start at 05:30; Stop 07/17/16 at 05:31; Status DC Trimethoprim/ Sulfamethoxazole 1 tab 1 tab TID PO Last administered on 07:49; Start 07/16/16 at 10:30; Stop 07/22/16 at 10:07; Status DC Aztreonam/Sodium Chloride (Azactam/Iv Sodium Chloride 0.9% 50ml) 50 ml @ 100 mls/hr Q6HRS IV Last administered on 07/22/16 05:37; Start 07/16/16 at 12:00; Stop 07/22/16 at 10:07; Status DC Azithromycin (Zithromax) 500 mg DAILY PO Last administered on 07/19/16 07:57; Start 07/16/16 at 10:30; Stop 07/19/16 at 08:06; Status DC Vancomycin HCl 125 mg [id number] PO Last administered on 07/23/16 20:53; Start at 10:30 Lactobacillus Acidophilus (Bacid, Majo-Bid) 1 tab TIDWMEALS PO Last administered on 07/23/16 17:24; Start 07/16/16 at 12:00 Ergocalciferol (Vitamin D2) 50,000 unit WEEKLY PO Last administered on 07:49; Start 07/22/16 at 09:00 Non-Formulary Medication 1 vial PRN QID PRN NEB SHORTNESS OF BREATH; Start 07/16 at 10:30; Stop 07/16/16 at 10:34; Status DC Non-Formulary Medication 1 inh PRN PRN IH SHORTNESS OF BREATH; Start 07/16/16 at 10:30; Stop 07/16/16 at 10:34; Status DC Albuterol/ Ipratropium (Duoneb) 3 ml RTQID NEB Last administered on 07/24/16 08:08; Start 07/16/16 at 12:00 Acetaminophen (Tylenol) 650 mg PRN Q6HRS PRN PO MILD PAIN / TEMP Last administered on 07/20/16 21:00; Start 07/16/16 at 10:30 Ondansetron HCl (Zofran) 4 mg PRN Q6HRS PRN IV NAUSEA/VOMITING; Start 07/16/16 at 10:30 Budesonide (Pulmicort) 0.5 mg RTBID NEB Last administered on 07/24/16 08:08; Start 07/16/16 at 11:30 Albuterol Sulfate (Ventolin Neb Soln) 2.5 mg PRN QID PRN NEB SHORTNESS OF BREATH Last administered on 07/17/16 00:14; Start 07/16/16 at 10:45 Enoxaparin Sodium (Lovenox 40mg Syringe) 40 mg Q24H SQ Last administered on 12:57; Start 07/16/16 at 13:00 Oseltamivir Phosphate 75 mg 75 mg BID PO Last administered on 07/18/16 08:40; Start 07/17/16 at 11:00; Stop 07/18/16 at 09:27; Status DC Sodium Chloride (Iv Sodium Chloride 0.9% 1000ml Bag) 1,000 ml @ 75 mls/hr 1X ONCE IV Last administered on 07/18/16 13:00; Start 07/18/16 at 13:00; Stop at 02:19; Status DC Diphenhydramine HCl (Benadryl) 50 mg PRN QHS PRN PO ITCHING Last administered on 07/21/16 20:39; Start 07/19/16 at 01:15 Nystatin 5 ml [id number] Last administered on 07/23/16 20:54; Start 07/19/16 at 09:00 Acetaminophen/ Hydrocodone Bitart (Lortab 5/325) 1 tab PRN Q4HRS PRN PO PAIN MILD TO MOD Last administered on 07/23/16 22:15; Start 07/19/16 at 19:30 Info (Do NOT chart on this entry -- for MONITORING) 1 each PRN DAILY PRN MC SEE COMMENTS; Start 07/20/16 at 13:45; Stop 07/22/16 at 13:44; Status Cancel Active Scripts Active Majo-Bid Caplet (Acidoph/L.bulg/Bif.b/S.thermop) 1 Each Tablet 1 Tab PO TIDWMEALS [Vancomycin Hcl] 125 MG/2.5 ML Solution 125 Mg PO [id number] Nystatin 100,000 Unit/1 Ml Oral.susp 5 Ml SWSW [id number] Hydrocodone-Apap 5-325 (Hydrocodone Bit/Acetaminophen) 1 Each Tablet 1 Tab PO PRN Q4HRS PRN Vitamin D2 (Ergocalciferol (Vitamin D2)) 50,000 Unit Capsule 50,000 Unit PO WEEKLY Reported Albuterol Sulfate Neb Soln (Albuterol Sulfate) 0.63 Mg/3 Ml Vial.neb 1 Vial NEB PRN QID PRN Advair 500-50 Diskus (Fluticasone/Salmeterol) 1 Each Disk.w.dev 1 Inh IH PRN PRN Vitals/I & O Vital Sign - Last 24 Hours 07/23/16 07/23/16 07/23/16 07/23/16 10:58 11:10 15:00 16:24 Temp 97.9 97.5 97.9 97.5 Pulse 98 99 Resp 18 18 B/P 137/63 135/72 Pulse Ox 96 96 95 O2 Delivery Nasal Cannula Nasal Cannula Nasal Cannula Nasal Cannula O2 Flow Rate 3.0 2.0 3.0 2.0 07/23/16 07/23/16 07/23/16 07/23/16 19:00 20:00 20:33 22:15 Temp 99.1 99.1 Pulse 110 Resp 18 B/P 133/56 Pulse Ox 96 98 O2 Delivery Nasal Cannula Nasal Cannula Nasal Cannula Nasal Cannula O2 Flow Rate 3.0 2.0 2.0 2.0 07/23/16 07/23/16 07/24/16 07/24/16 23:15 23:28 03:19 07:45 Temp 98.8 98.4 97.7 98.8 98.4 97.7 Pulse 108 105 97 Resp 18 18 18 B/P 129/64 148/79 127/64 Pulse Ox 97 96 96 O2 Delivery Nasal Cannula Nasal Cannula Nasal Cannula Nasal Cannula O2 Flow Rate 2.0 3.0 3.0 3.0 07/24/16 08:08 Pulse Ox 96 O2 Delivery Nasal Cannula O2 Flow Rate 2.0 Intake and Output 07/23/16 07/23/16 07/24/16 15:00 23:00 07:00 Intake Total 240 ml 450 ml 700 ml Output Total 350 ml 850 ml 580 ml Balance -110 ml -400 ml 120 ml SUNNY KING MD Jul 24, 2016 08:32
[2016-07-24] MEDS: NYSTATIN 100,000 UNITS/ML 5 ML ORAL.SUSP. SWSW SCH ×2 (09:00→13:00)
[2016-07-24] MEDS: VANCOMYCIN 125 MG/2.5 ML ORAL SOLUTION. PO SCH ×2 (09:19→12:26)
[2016-07-24] MEDS: LACTOBACILLUS ACIDOPH & BULGAR 1 TABLET. PO SCH ×2 (09:19→12:26)
[2016-07-24 11:26] VITALS: BP 120/59
[2016-07-24] MEDS: ENOXAPARIN 40 MG/0.4 ML DISP.SYRIN. SQ SCH (12:30)
--- NOTE | 2016-07-24 13:05 | PDOC ---
PULMONARY PROGRESS NOTES Subjective feels better Vitals Vital Signs Date Time Temp Pulse Resp B/P Pulse Ox O2 Delivery O2 Flow Rate FiO2 07/24/16 11:26 98.2 96 18 120/59 96 Nasal Cannula 3.0 98.2 General: Alert, No acute distress Lungs: Clear, Other (decrease bs) Cardiovascular: S1, S2 Abdomen: Soft, Non-tender Neuro Exam: Alert Extremities: No Edema Skin: Warm Labs Laboratory Tests Test 07/23/16 04:20 White Blood Count 5.7x10^3/uL (4.0-11.0) Red Blood Count 3.19x10^6/uL (4.30-5.70) Hemoglobin 9.3g/dL (13.0-17.5) Hematocrit 28.8% (39.0-53.0) Mean Corpuscular Volume 90fL (79-100) Mean Corpuscular Hemoglobin 29pg (25-35) Mean Corpuscular Hemoglobin Concent 33g/dL (31-37) Red Cell Distribution Width 14.3% (11.5-14.5) Platelet Count 310x10^3/uL (140-400) Neutrophils (%) (Auto) 66% (31-73) Lymphocytes (%) (Auto) 14% (24-48) Monocytes (%) (Auto) 10% (0-9) Eosinophils (%) (Auto) 9% (0-3) Basophils (%) (Auto) 1% (0-3) Neutrophils # (Auto) 3.7x10^3uL (1.8-7.7) Lymphocytes # (Auto) 0.8x10^3/uL (1.0-4.8) Monocytes # (Auto) 0.6x10^3/uL (0.0-1.1) Eosinophils # (Auto) 0.5x10^3/uL (0.0-0.7) Basophils # (Auto) 0.0x10^3/uL (0.0-0.2) Sodium Level 138mmol/L (136-145) Potassium Level 3.7mmol/L (3.5-5.1) Chloride Level 102mmol/L (98-107) Carbon Dioxide Level 33mmol/L (21-32) Anion Gap 3 (6-14) Blood Urea Nitrogen 13mg/dL (8-26) Creatinine 1.1mg/dL (0.7-1.3) Estimated GFR (Cockcroft-Gault) 64.4 BUN/Creatinine Ratio 12 (6-20) Glucose Level 87mg/dL (70-99) Calcium Level 8.4mg/dL (8.5-10.1) Total Bilirubin 0.3mg/dL (0.2-1.0) Aspartate Amino Transf (AST/SGOT) 41U/L (15-37) Alanine Aminotransferase (ALT/SGPT) 42U/L (16-63) Alkaline Phosphatase 131U/L (46-116) Total Protein 5.5g/dL (6.4-8.2) Albumin 1.9g/dL (3.4-5.0) Albumin/Globulin Ratio 0.5 (1.0-1.7) Medications Active Scripts Medications Dose Route/Sig Days Date Category Vitamin D2 (Ergocalciferol (Vitamin D2)) 50,000 Unit Capsule 50,000 Unit PO WEEKLY 06/18/16 Rx Albuterol Sulfate Neb Soln (Albuterol Sulfate) 0.63 Mg/3 Ml Vial.neb 1 Vial NEB PRN QID PRN 06/10/16 Reported Advair 500-50 Diskus (Fluticasone/Salmeterol) 1 Each Disk.w.dev 1 Inh IH PRN PRN 06/10/16 Reported Impression . 1. Acute respiratory failure secondary to left lower lobe pneumonia. 2. Left lower lobe pneumonia in a patient with a history of Stenotrophomonas, recently admitted to the hospital, possible gram-positive, gram-negative pneumonia. 3. Acute exacerbation of chronic obstructive pulmonary disease. 4. Mild protein malnutrition, present upon admission. 5. Fever improved 6. C-Diff Plan . CLINICALLY BETTER antibx per ID 02 nebs skill care transfer today HELENA STANFORD MD Jul 24, 2016 13:05
== END 2016-07-24 13:46 | DRG 871 ==
LOC: ER 15:01 → 6 SOUTH 16:44
PROVIDERS: ADMIT Internal Medicine; ATTEND Internal Medicine
DX: A41.9 Sepsis, unspecified organism (principal); J18.9 Pneumonia, unspecified organism; J96.00 Acute respiratory failure, unspecified whether with hypoxia or hypercapnia; J44.1 Chronic obstructive pulmonary disease with (acute) exacerbation; E44.1 Mild protein-calorie malnutrition; A04.7 Enterocolitis due to Clostridium difficile; I50.32 Chronic diastolic (congestive) heart failure; J44.0 Chronic obstructive pulmonary disease with (acute) lower respiratory infection; I10 Essential (primary) hypertension; J45.909 Unspecified asthma, uncomplicated; M19.90 Unspecified osteoarthritis, unspecified site; Y95 Nosocomial condition; Z96.649 Presence of unspecified artificial hip joint; Z96.659 Presence of unspecified artificial knee joint; Z82.49 Family history of ischemic heart disease and other diseases of the circulatory system; Z85.038 Personal history of other malignant neoplasm of large intestine; Z87.01 Personal history of pneumonia (recurrent); Z87.891 Personal history of nicotine dependence; Z88.1 Allergy status to other antibiotic agents; Z98.890 Other specified postprocedural states; Z88.8 Allergy status to other drugs, medicaments and biological substances; Z68.26 Body mass index [BMI] 26.0-26.9, adult
CPT/HCPCS: 36415; 36600; 71010; 80048; 80053; 80202; 82274; 82805; 82947; 83605; 83690; 84484; 85007; 85027; 86850; 86900; 86901; 87040; 87324; 87804; 93005; 93971; 94250; 94640; 94760; J1650; J1956; J3370; J3490; J7030; J7040; J7050; J7620; Q0144; Q0163; 97110; 97530; 97535; 99285-25